=== PATIENT | male | born 1955 | race Caucasian/White ===

== ENCOUNTER → 2017-09-12 12:24 | Outpatient (CLI) | payer BC, SELFPAY ==
--- NOTE | 2017-09-12 12:30 | NVE_ITS ---
Venous Exam IMPRESSIONS Acute deep vein thrombosis involving the right femoral vein, right popliteal vein, right posterior tib, right peroneal, right gastrocnemius, and right soleal History: Right lower extremity pain. Edema of the right leg. Right lower extremity venous duplex evaluation. Doppler flow study including spectral analysis, color and calvillo scale imaging. Location: Vascular laboratory. Patient status: Outpatient. CRITICAL FINDINGS - Reported to: Shakira - Read back and verified. - 09/12/2017 - 1:00 PM - Acute DVT Tables: Venous flow and imaging: + + + + Location Overall Flow properties + + + + Right common femoral Patent Normal phasicity; spontaneous; normal augmentation; compressible + + + + Right saphenofemoral Patent Compressible junction + + + + Right profunda femoral Patent Compressible + + + + Right femoral Totally occluded Absent; not spontaneous; no augmentation; noncompressible + + + + Right greater saphenous Patent Normal phasicity; spontaneous; normal augmentation; compressible + + + + Right popliteal Totally occluded Absent; not spontaneous; no augmentation; noncompressible + + + + Right posterior tibial Totally occluded Noncompressible + + + + Right peroneal Totally occluded Noncompressible + + + + Right gastrocnemius Partially occluded Noncompressible + + + + Right soleal Totally occluded Noncompressible + + + + (Report amended ) Electronically signed by: Antony Porras [id number]
[2017-09-12 14:20] LABS: Basophils # 0.1 K/mm3 (0-0.2); Basophils % 0.4 % (0.1-2.0); Eosinophils # 0.2 K/mm3 (0.0-0.4); Eosinophils % 2.1 % (0.1-12.0); Lymphocytes # 2.4 K/mm3 (0.7-4.5); Lymphocytes % 22.6 K/mm3 (10-50); Mean Corpuscular Hemoglobin 29.7 pg (27.0-31.2); Mean Corpuscular Volume 87.5 fl (80-94); Mean Platelet Volume 7.5 fl (7.4-10.4); Monocytes # 0.6 K/mm3 (0.1-1.0); Neutrophils # 7.2 K/mm3 (1.8-7.8); Neutrophils % 68.9 % (37.0-80.0); Platelet Count 247 K/mm3 (142-424); Red Blood Count 5.38 M/mm3 (4.60-6.20); Red Cell Distribution Width 13.6 % (11.5-17.5); White Blood Count 10.4 K/mm3 (4.8-10.8)
[2017-09-12 16:10] LABS: Alanine Aminotransferase 29 U/L (12-78); Albumin Level 3.7 gm/dL (3.4-5.0); Albumin/Globulin Ratio 1.2 (1.1-1.8); Alkaline Phosphatase 74 U/L (46-116); Anion Gap 14.7 mEq/L (5-15); Aspartate Amino Transferase 11 U/L (15-37); Bilirubin,Total 2.1 mg/dL (0.2-1.0); Blood Urea Nitrogen 17 mg/dL (7-18); Calcium 8.5 mg/dL (8.5-10.1); Carbon Dioxide 24 mmol/L (21.0-32.0); Chloride 106 mmol/L (98-107); Creatinine,Serum 0.92 mg/dL (0.70-1.30); Estimated Glomerular Filt Rate 83 ml/min (>60); GFR (African American) 101 ML/MIN (>60); Glucose 143 mg/dL (74-106); Potassium 3.7 mmoL/L (3.5-5.1); Sodium 141 mmol/L (136-145); Total Protein,Serum 6.7 gm/dL (6.4-8.2)
[2017-09-12 16:12] LABS: Activated Partial Thrombo Time 25.9 seconds (23.6-34.0); INR 1.02 (0.9-1.1)
[2017-09-14 18:30] LABS: Anti-Thrombin III Antigen 72 % (72-124); Factor V Activity 117 % (70-150); Protein C Antigen 87 % (60-150); Protein S Antigen, Total 87 % (60-150); Protein S, Free 115 % (57-157)
== END ==
PROVIDERS: PCP Internal Medicine Adolescent Medicine; Visit Provider Nurse Practitioner Family
DX: M79.661 Pain in right lower leg (principal); M79.89 Other specified soft tissue disorders
CPT/HCPCS: 36415; 80053; 85025; 85220; 85301; 85302; 85305; 85610; 85730; 93971

== ENCOUNTER → 2017-09-12 13:29 | Outpatient (CLI) | payer BC, SELFPAY | PROVIDERS: Visit Provider Nurse Practitioner Family ==

== ENCOUNTER → 2017-11-14 08:23 | Outpatient (CLI) | payer BC, SELFPAY ==
[2017-11-14 08:43] LABS: Basophils # 0.1 K/mm3 (0-0.2); Basophils % 0.7 % (0.1-2.0); Eosinophils # 0.2 K/mm3 (0.0-0.4); Eosinophils % 1.9 % (0.1-12.0); Hematocrit 47.7 % (42.0-52.0); Hemoglobin 16.3 g/dL (14.1-18.0); Lymphocytes # 1.5 K/mm3 (0.7-4.5); Lymphocytes % 18.6 K/mm3 (10-50); Mean Corpuscular HGB Conc 34.2 g/dL (31.8-35.4); Mean Corpuscular Hemoglobin 29.9 pg (27.0-31.2); Mean Corpuscular Volume 87.5 fl (80-94); Mean Platelet Volume 7.3 fl (7.4-10.4); Monocytes # 0.4 K/mm3 (0.1-1.0); Monocytes % 4.9 % (1.7-9.3); Neutrophils # 5.9 K/mm3 (1.8-7.8); Neutrophils % 73.8 % (37.0-80.0); Platelet Count 261 K/mm3 (142-424); Red Blood Count 5.45 M/mm3 (4.60-6.20)
[2017-11-14 10:01] LABS: Alanine Aminotransferase 30 U/L (12-78); Albumin/Globulin Ratio 1.4 (1.1-1.8); Alkaline Phosphatase 75 U/L (46-116); Anion Gap 16.1 mEq/L (5-15); Aspartate Amino Transferase 14 U/L (15-37); Bilirubin,Total 1.6 mg/dL (0.2-1.0); Blood Urea Nitrogen 16 mg/dL (7-18); Calcium 9.4 mg/dL (8.5-10.1); Carbon Dioxide 22 mmol/L (21.0-32.0); Chloride 106 mmol/L (98-107); Chol/HDL Ratio 3.2 (1-3.5); Cholesterol 172 mg/dL (140-200); Estimated Glomerular Filt Rate 85 ml/min (>60); GFR (African American) 103 ML/MIN (>60); Globulin 2.9 gm/dl (1.3-3.2); Glucose 122 mg/dL (74-106); HDL Cholesterol 54 mg/dL (27-67); LDL Cholesterol 109 mg/dL (0-130); Potassium 4.1 mmoL/L (3.5-5.1); Sodium 140 mmol/L (136-145); Total Protein,Serum 6.9 gm/dL (6.4-8.2); Triglycerides 47 mg/dL (30-200); VLDL Cholesterol 9 mg/dL (0-40)
[2017-11-14 10:15] LABS: Hemoglobin A1C 5.4 % (0.0-7.0)
== END ==
PROVIDERS: Visit Provider Internal Medicine Adolescent Medicine
DX: R73.9 Hyperglycemia, unspecified (principal)
CPT/HCPCS: 36415; 80053; 80061; 83036; 85025

== ENCOUNTER → 2018-04-15 09:03 | Outpatient (CLI) | payer BC, SELFPAY ==
[2018-04-15 09:31] LABS: Basophils # 0.1 K/mm3 (0-0.2); Basophils % 0.6 % (0.1-2.0); Eosinophils # 0.2 K/mm3 (0.0-0.4); Eosinophils % 2.1 % (0.1-12.0); Hematocrit 46.8 % (42.0-52.0); Hemoglobin 15.8 g/dL (14.1-18.0); Lymphocytes # 1.7 K/mm3 (0.7-4.5); Lymphocytes % 21.7 K/mm3 (10-50); Mean Corpuscular HGB Conc 33.7 g/dL (31.8-35.4); Mean Corpuscular Hemoglobin 29.6 pg (27.0-31.2); Mean Corpuscular Volume 87.8 fl (80-94); Mean Platelet Volume 7.1 fl (7.4-10.4); Monocytes # 0.4 K/mm3 (0.1-1.0); Monocytes % 5.5 % (1.7-9.3); Neutrophils # 5.6 K/mm3 (1.8-7.8); Neutrophils % 70.1 % (37.0-80.0); Platelet Count 265 K/mm3 (142-424); Red Blood Count 5.32 M/mm3 (4.60-6.20); Red Cell Distribution Width 13.6 % (11.5-17.5)
[2018-04-15 09:57] LABS: Alanine Aminotransferase 32 U/L (12-78); Albumin Level 3.7 gm/dL (3.4-5.0); Albumin/Globulin Ratio 1.3 (1.1-1.8); Alkaline Phosphatase 70 U/L (46-116); Anion Gap 9.4 mEq/L (5-15); Aspartate Amino Transferase 16 U/L (15-37); Bilirubin,Total 1.6 mg/dL (0.2-1.0); Blood Urea Nitrogen 19 mg/dL (7-18); Calcium 8.4 mg/dL (8.5-10.1); Carbon Dioxide 28 mmol/L (21.0-32.0); Chloride 107 mmol/L (98-107); Chol/HDL Ratio 3.4 (1-3.5); Cholesterol 149 mg/dL (140-200); Creatinine,Serum 0.77 mg/dL (0.70-1.30); Estimated Glomerular Filt Rate 102 ml/min (>60); GFR (African American) 123 ML/MIN (>60); Globulin 2.8 gm/dl (1.3-3.2); Glucose 121 mg/dL (74-106); HDL Cholesterol 44 mg/dL (27-67); LDL Cholesterol 90 mg/dL (0-130); Potassium 4.4 mmoL/L (3.5-5.1); Prostate Specific Ag Screen 1.1 ng/mL (0.0-4.0); Sodium 140 mmol/L (136-145); Total Protein,Serum 6.5 gm/dL (6.4-8.2); Triglycerides 77 mg/dL (30-200); VLDL Cholesterol 15 mg/dL (0-40)
[2018-04-15 10:11] LABS: Hemoglobin A1C 5.5 % (0.0-7.0)
[2018-04-17 12:19] LABS: Creatinine, Urine 174.8 mg/dL (Not Estab.); Microalbumin, Urine 17.2 ug/mL (Not Estab.)
== END ==
PROVIDERS: PCP Internal Medicine Adolescent Medicine; Visit Provider Nurse Practitioner Family
DX: R73.03 Prediabetes (principal); D68.318 Other hemorrhagic disorder due to intrinsic circulating anticoagulants, antibodies, or inhibitors; Z12.5 Encounter for screening for malignant neoplasm of prostate
CPT/HCPCS: 36415; 80053; 80061; 82043; 82570; 83036; 85025; G0103

== ENCOUNTER → 2019-04-07 08:33 | Outpatient (POV) | payer BC, SELFPAY | PROVIDERS: Visit Provider Dermatology | DX: Z00.00 Encounter for general adult medical examination without abnormal findings (principal) ==

== ENCOUNTER → 2019-04-30 08:24 | Outpatient (CLI) | payer BC, SELFPAY ==
[2019-04-30 08:52] LABS: Basophils % 0.6 % (0.1-2.0); Eosinophils # 0.2 K/mm3 (0.0-0.4); Eosinophils % 3.3 % (0.1-12.0); Hematocrit 47.6 % (42.0-52.0); Hemoglobin 15.9 g/dL (14.1-18.0); Lymphocytes # 1.5 K/mm3 (0.7-4.5); Lymphocytes % 20.8 % (10-50); Mean Corpuscular HGB Conc 33.3 g/dL (31.8-35.4); Mean Corpuscular Hemoglobin 29.8 pg (27.0-31.2); Mean Corpuscular Volume 89.6 fl (80-94); Mean Platelet Volume 7.9 fl (7.4-10.4); Monocytes # 0.4 K/mm3 (0.1-1.0); Monocytes % 5.8 % (1.7-9.3); Neutrophils % 69.5 % (37.0-80.0); Platelet Count 263 K/mm3 (142-424); Red Blood Count 5.31 M/mm3 (4.60-6.20); Red Cell Distribution Width 13.6 % (11.5-17.5); White Blood Count 7.2 K/mm3 (4.8-10.8)
[2019-04-30 10:30] LABS: Alanine Aminotransferase 36 U/L (12-78); Albumin Level 3.6 gm/dL (3.4-5.0); Albumin/Globulin Ratio 1.3 (1.1-1.8); Alkaline Phosphatase 58 U/L (46-116); Anion Gap 10.2 mEq/L (5-15); Aspartate Amino Transferase 14 U/L (15-37); Bilirubin,Total 2.3 mg/dL (0.2-1.0); Blood Urea Nitrogen 17 mg/dL (7-18); Calcium 9.1 mg/dL (8.5-10.1); Carbon Dioxide 28 mmol/L (21.0-32.0); Chloride 107 mmol/L (98-107); Chol/HDL Ratio 3.5 (1-3.5); Cholesterol 138 mg/dL (140-200); Estimated Glomerular Filt Rate 85 ml/min (>60); GFR (African American) 102 ML/MIN (>60); Globulin 2.7 gm/dl (1.3-3.2); Glucose 124 mg/dL (74-106); HDL Cholesterol 39 mg/dL (27-67); LDL Cholesterol 84 mg/dL (0-130); Potassium 4.2 mmoL/L (3.5-5.1); Prostate Specific Ag Screen 1.3 ng/mL (0.0-4.0); Sodium 141 mmol/L (136-145); Total Protein,Serum 6.3 gm/dL (6.4-8.2); Triglycerides 75 mg/dL (30-200); VLDL Cholesterol 15 mg/dL (0-40)
[2019-04-30 14:25] LABS: Hemoglobin A1C 5.7 % (0.0-7.0)
== END ==
PROVIDERS: Visit Provider Internal Medicine Adolescent Medicine
DX: R73.9 Hyperglycemia, unspecified (principal); Z80.42 Family history of malignant neoplasm of prostate
CPT/HCPCS: 36415; 80053; 80061; 83036; 85025; G0103

== ENCOUNTER → 2019-07-04 08:17 | Outpatient (CLI) | payer BC, MEDICARE, SELFPAY ==
[2019-07-04 08:20] LABS: Adenovirus F 40/41, stool Not Detected (NotDetected); Astrovirus Not Detected (NotDetected); Campylobacter Not Detected (NotDetected); Clostridium Difficile A/B, PCR Not Detected (NotDetected); Cryptosporidium Not Detected (NotDetected); Cyclospora Cayetanesis Not Detected (NotDetected); Entamoeba histolytica Not Detected (NotDetected); Enteroaggregative E coli Not Detected (NotDetected); Enteropathogenic E coli Not Detected (NotDetected); Enterotoxigenic E coli Not Detected (NotDetected); Giardia lamblia Not Detected (NotDetected); Norovirus Not Detected (NotDetected); Plesimonas Shigalloides, PCR Not Detected (NotDetected); Rotavirus A Not Detected (NotDetected); Salmonella, PCR Not Detected (NotDetected); Sapovirus Not Detected (NotDetected); Shiga-like toxin E coli Not Detected (NotDetected); Shigella Enterovasive E coli Not Detected (NotDetected); Vibrio Cholerae Not Detected (NotDetected); Vibrio, PCR Not Detected (NotDetected); Yersinia Entercolitica, PCR Not Detected (NotDetected)
== END ==
PROVIDERS: Visit Provider Surgery
DX: K52.9 Noninfective gastroenteritis and colitis, unspecified (principal); K57.92 Diverticulitis of intestine, part unspecified, without perforation or abscess without bleeding; R19.7 Diarrhea, unspecified
CPT/HCPCS: 87507

== ENCOUNTER → 2020-06-27 06:58 | Outpatient (CLI) | payer BC, MEDICARE, SELFPAY ==
[2020-06-27 08:35] LABS: Basophils % 0.4 % (0.1-2.0); Eosinophils # 0.8 K/mm3 (0.0-0.4); Eosinophils % 10.8 % (0.1-12.0); Hematocrit 50.2 % (42.0-52.0); Hemoglobin 16.9 g/dL (14.1-18.0); Lymphocytes # 2.2 K/mm3 (0.7-4.5); Lymphocytes % 27.8 % (10-50); Mean Corpuscular HGB Conc 33.7 g/dL (31.8-35.4); Mean Corpuscular Volume 89.2 fl (80-94); Mean Platelet Volume 7.9 fl (7.4-10.4); Monocytes # 0.4 K/mm3 (0.1-1.0); Monocytes % 5.7 % (1.7-9.3); Neutrophils # 4.3 K/mm3 (1.8-7.8); Neutrophils % 55.3 % (37.0-80.0); Platelet Count 249 K/mm3 (142-424); Red Blood Count 5.63 M/mm3 (4.60-6.20); Red Cell Distribution Width 13.9 % (11.5-17.5); White Blood Count 7.8 K/mm3 (4.8-10.8)
[2020-06-27 09:29] LABS: Alanine Aminotransferase 35 U/L (12-78); Albumin Level 4.1 g/dl (3.5-5.0); Albumin/Globulin Ratio 1.6 (1.1-1.8); Alkaline Phosphatase 66 U/L (38-126); Aspartate Amino Transferase 31 U/L (17-59); Bilirubin,Total 1.9 mg/dl (0.2-1.3); Blood Urea Nitrogen 17 mg/dl (9-20); Calcium 9.2 mg/dl (8.4-10.2); Carbon Dioxide 24 mmol/L (22.0-30.0); Chloride 106 mmol/L (98-107); Chol/HDL Ratio 3.4 (1-3.5); Cholesterol 148 mg/dl (140-200); Estimated Glomerular Filt Rate 97 ml/min (>60); GFR (African American) 117 ML/MIN (>60); Globulin 2.5 g/dL (1.3-3.2); Glucose 134 mg/dl (74-100); HDL Cholesterol 44 mg/dl (40-60); Sodium 139 mmol/L (136-145); Total Protein,Serum 6.6 g/dl (6.3-8.2); Triglycerides 104 mg/dl (30-150); VLDL Cholesterol 21 mg/dL (0-40)
[2020-06-27 09:40] LABS: Direct LDL Cholesterol 101.34 mg/dL (100-129)
[2020-06-27 09:48] LABS: Hemoglobin A1C 5.7 % (4.0-6.0)
[2020-06-27 09:59] LABS: Prostate Specific Ag Screen 0.8 ng/ml (0.0-4.0)
== END ==
PROVIDERS: Visit Provider Nurse Practitioner Family
DX: R73.03 Prediabetes (principal); Z12.5 Encounter for screening for malignant neoplasm of prostate; Z80.42 Family history of malignant neoplasm of prostate; Z86.718 Personal history of other venous thrombosis and embolism
CPT/HCPCS: 36415; 80053; 80061; 83036; 85025; G0103

== ENCOUNTER 2020-08-23 09:18 | Emergency (ER) | payer BC, MEDICARE, SELFPAY ==
[2020-08-23 09:21] VITALS: BMI 35.9
[2020-08-23 09:33] VITALS: BP 139/83; PULSE 71; RESP 16; TEMP 36.6; O2SAT 96; BMI 35.6
--- NOTE | 2020-08-23 09:33 | XR_ITS ---
PROCEDURE: XR THORACIC SPINE 3V CLINICAL INDICATION: fall Posttraumatic pain COMPARISON: CT CT ABDOMEN PELVIS W CON from 07/01/2019 FINDINGS: There is mild upper thoracic scoliosis convex right. Multi level thoracic spondylosis is present. There is mild wedging of L1 vertebral body. This however appears to have had a similar appearance on a prior CT scan of 07/01/2019. IMPRESSION: Degenerative changes with chronic wedging of L1. No acute finding Dictated by: Antony Porras MD 08/23/2020 10:34 Antony Porras MD in [place] 08/23/2020 10:34
--- NOTE | 2020-08-23 09:33 | XR_ITS ---
PROCEDURE: XR RIBS RT MIN 3V W CXR1V CLINICAL INDICATION: fall Posttraumatic pain, right posterior rib pain marrow COMPARISON: CR CXR CHEST(2 VIEWS-NOT PORTABLE) from 08/03/2016 FINDINGS: Multiple views of the right ribs show no obvious fracture. No lytic or blastic change. Consider follow-up in 7-[address] with 3D reformats if pain persists Frontal view of the chest shows no acute finding IMPRESSION: No acute findings. Dictated by: Antony Porras MD 08/23/2020 10:32 Antony Porras MD in [place] 08/23/2020 10:32
--- NOTE | 2020-08-23 09:39 | HMH.EDUTC ---
[facility] [place] Disposition Clinical Impression: Back pain Qualifiers: Back pain location: thoracic back pain Chronicity: unspecified Back pain laterality: right Qualified Code(s): M54.6 - Pain in thoracic spine Rib contusion Qualifiers: Encounter type: initial encounter Laterality: right Qualified Code(s): S20.211A - Contusion of right front wall of thorax, initial encounter Disposition: Home, Self-Care Condition on Discharge: Good Instructions: DI for Rib Contusion, Lidocaine Transdermal Patch, Methocarbamol, DI for Thoracic Back Pain, Thoracic Back Pain Additional Instructions: *Ibuprofen evangelina 6 hours with meal as needed for pain/inflammation if your Doctor has told you that you can take it Lidocaine patches on area for 12 hours daily then remove and leave off for 12 hours *Not additional anti-inflammatory like motrin, aleve, advil with the above amount of ibuprofen. You can still take Tylenol every 4 hours as needed if you need something else for pain *Ice 20 minutes every 2 hours for the first 48 hours after the initial injury followed by moist heat every 20 minutes 3-4 times a day to affected area *Muscle relaxer as prescribed as needed for muscle spasms but remember, it WILL cause drowsiness You cannot take it and drive, operate machinery or care for small children. *Keep this area active, no movement leads to more stiffness, However take it easy and avoid heavy lifting pushing or pulling *Follow up with you family doctor if no improvement for further treatment in the next 48-72 hours Return if needed Straight to ER if any life threatening symptoms Prescriptions: Lidocaine [Lidocaine Pain Relief] 1 each TP DAILY #6 adh..patch Transmission Status: Received by [facility] methocarbamoL [Methocarbamol 500mg Tablet] 500 mg PO BID PRN #10 tab PRN Reason: Muscle Spasm Transmission Status: Received by [facility] Referrals: Sarmad Simmons MD [Primary Care Provider] - As needed Forms: Work/School Release Time of Disposition: 10:52 Medical Decision Making - Christiano Inquiry Pt receiving controlled substance: No Christiano was queried for this patient: No Vital Signs: 08/23/20 09:33 08/23/20 10:42 Temperature 97.9 F 97.8 F Temperature Source Tympanic Tympanic Pulse Rate 68 Pulse Rate [Right] 71 Respiratory Rate 16 18 Blood Pressure 112/72 Blood Pressure [Right Arm] 139/83 Blood Pressure Mean [Right Arm] 101 Blood Pressure Source [Right Arm] Manual Cuff/ Doppler Blood Pressure Position Sitting Blood Pressure Position [Right Arm] Sitting 02 Sat by Pulse Oximetry 96 Oxygen Delivery Method Room Air - Radiology Data #1 Image(s): T-Spine Image Reviewed: Yes I have reviewed radiologist's interpretation Preliminary Findings: No Fracture Seen IMPRESSION: Degenerative changes with chronic wedging of L1. No acute finding #2 Image(s): Chest (with right ribs) Image Reviewed: Yes I have reviewed radiologist's interpretation Preliminary Findings: No Fracture Seen IMPRESSION: No acute findings. [facility] [place] HPI - General Stated complaint: AO [id number] fell, back pain Time Seen by Provider: 08/23/20 09:39 Mode of Arrival: Ambulatory Source of Information: Patient Limitations: No Limitations Description of Symptoms (Recalled from Triage Doc. by RN): pt states he slipped on ice this morning and fell on his back. he is having mid back pain that radiates to the right of his ribs. HEENT Symptoms (Recalled from RN notes): No Resp Symptoms (Recalled from RN notes): No Skin Symptoms (Recalled from RN notes): No MS Symptoms (Recalled from RN notes): Yes (middle back pain radiating to R rib area) Functional Status (Recalled from RN notes): na - History of Present Illness Provider Complaint: Patient state that he slipped on ice on his driveway earlier this morning and landed on his back and right side of ribs States that he has been having spasm like pain in his back ever since and hurts when he mov
[2020-08-23 10:42] VITALS: BP 112/72; PULSE 68; RESP 18; TEMP 36.6
== END 2020-08-23 11:00 | disposition home or self-care (01) ==
PROVIDERS: Emergency Provider Nurse Practitioner Family; PCP Internal Medicine Adolescent Medicine
DX: S20.211A Contusion of right front wall of thorax, initial encounter (principal); W00.0XXA Fall on same level due to ice and snow, initial encounter; Y92.014 Private driveway to single-family (private) house as the place of occurrence of the external cause; E11.9 Type 2 diabetes mellitus without complications; Z88.7 Allergy status to serum and vaccine
CPT/HCPCS: 71101; 72072; 99202; G0463

== ENCOUNTER 2020-08-23 20:46 | Observation (INO) | payer BC, MEDICARE, SELFPAY ==
[2020-08-23 20:56] VITALS: BP 170/85; PULSE 83; RESP 18; TEMP 36.9; O2SAT 94; BMI 38.2
--- NOTE | 2020-08-23 21:08 | XR_ITS ---
PROCEDURE: XR PELVIS 1-2V CLINICAL INDICATION: fall Pain COMPARISON: CT CT ABDOMEN PELVIS W CON from 07/01/2019 TECHNIQUE: XR Pelvis AP View FINDINGS: No fracture or dislocation is evident. Mild osteoarthritic changes are present involving both hips. Os acetabuli noted on right No lytic or blastic change. IMPRESSION: No acute findings. Dictated by: Antony Porras MD 08/24/2020 05:51 Antony Porras MD in [place] 08/24/2020 05:51
--- NOTE | 2020-08-23 21:08 | XR_ITS ---
PROCEDURE: XR CHEST AP CLINICAL HISTORY: fall Posttraumatic pain COMPARISON: CR CXR CHEST(2 VIEWS-NOT PORTABLE) from 08/03/2016 CR XR RIBS RT MIN 3V W CXR1V from 08/23/2020 FINDINGS: Mild prominence of the cardiac and mediastinal silhouette. The lungs are clear without infiltrates, suspicious nodules, or pleural effusions. There is a left 5th rib fracture laterally which may be old. Please correlate as the patient's area of pain and tenderness. IMPRESSION: No acute findings. Dictated by: Antony Porras MD 08/24/2020 05:54 Antony Porras MD in [place] 08/24/2020 05:54
--- NOTE | 2020-08-23 21:08 | CT_ITS ---
PROCEDURE: CT CERVICAL SPINE WO CON CLINICAL INDICATION: fall Neck injury with pain, contusion/abrasion or hematoma, cervical sprain/strain the COMPARISON: No exams were available for comparison TECHNIQUE: Axial images obtained with sagittal and coronal reformats. All CT scans at the facility use one or more dose reduction, viz: automated exposure control, ma/kV adjustment per patient size (including targeted exams where dose is matched to indication, i.e. head), or iterative reconstruction technique. Axial spiral CT scanning performed of the cervical spine beginning at the base of the skull and continuing to the upper T-spine. 3-D multiplanar reconstruction with 3-D manipulation of volumetric data set in image rendering was completed by the radiologist and/or technologist with the supervision of the radiologist on independent workstation. FINDINGS: Normal alignment. No fracture or dislocation. No lytic or blastic change. Lung apices are clear. There is degenerative disc disease at C5-C6 and C6-C7. There are mild facet and uncovertebral arthritic changes. There are few scattered small nodes in the neck. There is mild left-sided foraminal narrowing at C5-C6 and there are small anterior osteophytes at C5-C6 and C7. IMPRESSION: Degenerative changes, no acute finding Dictated by: Antony Porras MD 08/24/2020 10:47 Antony Porras MD in [place] 08/24/2020 10:47
--- NOTE | 2020-08-23 21:08 | CT_ITS ---
PROCEDURE: CT LUMBAR SPINE WO CON CLINICAL HISTORY: fall Posttraumatic pain COMPARISON: CT CT ABDOMEN PELVIS W CON from 07/01/2019 TECHNIQUE: Axial images obtained with sagittal and coronal reformats. All CT scans at the facility use one or more dose reduction, viz: automated exposure control, ma/kV adjustment per patient size (including targeted exams where dose is matched to indication, i.e. head), or iterative reconstruction technique. FINDINGS: There is normal alignment. No fracture or dislocation. No lytic or blastic change. There is mild wedge contour involving the L1 vertebral body. This had a similar appearance on 07/01/2019 anterior osteophytes are present at L1-L2 and L3. Osteoarthritic changes are present involving the SI joints. IMPRESSION: No acute fracture. Chronic changes as described above. Dictated by: Antony Porras MD 08/24/2020 12:15 Antony Porras MD in [place] 08/24/2020 12:15
--- NOTE | 2020-08-23 21:08 | CT_ITS ---
PROCEDURE: CT HEAD/BRAIN WO CON CLINICAL INDICATION: fall Head injury with headache/pain, contusion, abrasion or hematoma COMPARISON: No exams were available for comparison TECHNIQUE: Axial images obtained. All CT scans at the facility use one or more dose reduction, viz: automated exposure control, ma/kV adjustment per patient size (including targeted exams where dose is matched to indication, i.e. head), or iterative reconstruction technique. FINDINGS: No midline shift, mass effect, intracranial hemorrhage, hydrocephalus, or extra-axial fluid collection is evident. There is mild generalized atrophy with hypoattenuation of the periventricular white matter consistent with microangiopathic changes. The calvarium has an unremarkable appearance. No mastoid effusion. There is mild mucosal thickening of the ethmoid sinuses a small retention cyst is present in the left maxillary sinus with minimal mucosal thickening of the maxillary sinuses. IMPRESSION: No acute intracranial finding Dictated by: Antony Porras MD 08/24/2020 10:44 Antony Porras MD in [place] 08/24/2020 10:44
--- NOTE | 2020-08-23 21:08 | CT_ITS ---
PROCEDURE: CT THORACIC SPINE WO CON CLINICAL HISTORY: fall Posttraumatic pain COMPARISON: No exams were available for comparison TECHNIQUE: Axial images obtained with sagittal and coronal reformats. All CT scans at the facility use one or more dose reduction, viz: automated exposure control, ma/kV adjustment per patient size (including targeted exams where dose is matched to indication, i.e. head), or iterative reconstruction technique. FINDINGS: There is normal alignment. There is DISH of the thoracic spine with multilevel bridging osteophytes anteriorly from T5 to T12. There is minimal depression of the superior endplate of T3 and T4 indeterminate age. No retropulsion. No subluxation. No bony canal stenosis. There is mild wedge deformity of C7 which may be chronic. MRI may confirm. IMPRESSION: 1. Minimal superior depression of T3 and T4 of indeterminate age. 2. DISH of the thoracic spine 3. Minimal wedge changes of C7 with anterior osteophytes at that level which may be chronic. MRI may confirm. Dictated by: Antony Porras MD 08/24/2020 11:22 Antony Porras MD in [place] 08/24/2020 11:22
--- NOTE | 2020-08-23 21:30 | HMH.EDFALL ---
ED Disposition Clinical Impression: DISH (diffuse idiopathic skeletal hyperostosis), Intractable pain Thoracic spine fracture Qualifiers: Encounter type: initial encounter Thoracic vertebra fracture level: T3 Fracture type: closed Fracture morphology: unspecified fracture morphology Qualified Code(s): S22.039A - Unspecified fracture of third thoracic vertebra, initial encounter for closed fracture Fall Qualifiers: Encounter type: initial encounter Qualified Code(s): W19.XXXA - Unspecified fall, initial encounter Disposition: Admitted as Observation Condition on Discharge: Serious Referrals: Sarmad Simmons MD [Primary Care Provider] - - Critical Care Critical Care Time: No Attestation: On 08/23/20, the high probability of a clinically significant, sudden or life threatening deterioration of the following system(s) required my full and direct attention, intervention and personal management. The time I documented below is in addition to time spent performing reported procedures but includes the following listed in this critical care notation. Medical Decision Making - Medical Records Medical records reviewed: Yes: I reviewed the patient's medical records. - Christiano Inquiry Pt receiving controlled substance: No Vital Signs: 08/23/20 20:56 Temperature 98.4 F Temperature Source Oral Pulse Rate [Right] 83 Respiratory Rate 18 Blood Pressure [Right Arm] 170/85 H Blood Pressure Mean [Right Arm] 113 Blood Pressure Source [Right Arm] Automatic Cuff Blood Pressure Position [Right Arm] Sitting 02 Sat by Pulse Oximetry 94 L Oxygen Delivery Method Room Air - Lab Data Lab results reviewed: Yes: I reviewed the patient's lab results. Orders (Tests/Meds): ED MEDICATIONS Generic Name Dose Route Start Last Admin Trade Name Freq PRN Reason Stop Dose Admin Sodium Chloride 1,000 mls @ 999 mls/hr 08/23/20 21:15 08/23/20 22:05 Sod Chlor 0.9% 1000ml Bag IV 08/23/20 22:15 999 mls/hr .Q1H1M JOSY Administration Discontinued Medications Generic Name Dose Route Start Last Admin Trade Name Freq PRN Reason Stop Dose Admin Ketorolac Tromethamine 30 mg 08/23/20 21:12 08/23/20 22:05 Ketorolac 30mg/Ml Vial IV 08/23/20 21:13 30 mg ONCE ONE Administration Methylprednisolone Sodium Succinate 125 mg 08/23/20 21:12 08/23/20 22:05 Methylprednisolone Sod Succ 125mg Vial IV 08/23/20 21:13 125 mg ONCE ONE Administration Morphine Sulfate 4 mg 08/23/20 21:12 08/23/20 22:05 Morphine 4mg/Ml Syringe IV 08/23/20 21:13 4 mg ONCE ONE Administration Ondansetron HCl 4 mg 08/23/20 21:12 08/23/20 22:05 Ondansetron 4mg/2ml Vial IV 08/23/20 21:13 4 mg ONCE ONE Administration ORDERS Category Date Time Status CT cervical spine wo con Stat Cat Scan 08/23/20 21:[address] head/brain wo con Stat Cat Scan 08/23/20 21:[address] lumbar spine wo con Stat Cat Scan 08/23/20 21:[address] thoracic spine wo con Stat Cat Scan 08/23/20 21:08 Taken XR chest AP Stat Exams 08/23/20 21:08 Taken XR pelvis 1-2V Stat Exams 08/23/20 21:08 Taken - Radiology Data #1 Image(s): Chest, Pelvis Image Reviewed: Yes I reviewed the patient's radiology image Preliminary Findings: No Fracture Seen - CT Data CT Scan: Head, C-Spine, T-Spine, L-Spine Time Received: 22:[address] Reviewed: Yes: I have viewed the radiologist's interpretation Preliminary Findings: Abnormal (see report) Medical Decision Narrative: has sig changes on ct and possible fx and sig dish changes t spine - will need admit for eval and treatment Fall HPI - General Chief Complaint: Fall Stated Complaint: AO [id number] fell on Ice R Side Time Seen by Provider: 08/23/20 21:05 Mode of Arrival: Ambulatory Source of Information: Patient, Spouse, Medical Record Limitations: No Limitations Description of Symptoms (Recalled from ER Triage Doc. by RN): Pt fell this AM and continues to have mid back pain, pt did hit head, b
[2020-08-23 22:31] LABS: Adenovirus,PCR Not Detected (NotDetected); Bordetella Pertussis Not Detected (NotDetected); Chlamydophila Pneumoniae, PCR Not Detected (NotDetected); Coronavirus 19, PCR Not Detected (NotDetected); Coronavirus 229E Not Detected (NotDetected); Coronavirus NL63 Not Detected (NotDetected); Coronavirus OC43 Not Detected (NotDetected); Coronovirus HKU1,PCR Not Detected (NotDetected); Human Metapneumovirus Not Detected (NotDetected); Influenza A, PCR Not Detected (NotDetected); Influenza AH1, 2009 Not Detected (NotDetected); Influenza AH1, PCR Not Detected (NotDetected); Influenza AH3,PCR Not Detected (NotDetected); Influenza B, PCR Not Detected (NotDetected); Mycoplasma Pneumoniae, PCR Not Detected (NotDetected); Parainfluenza 1, PCR Not Detected (NotDetected); Parainfluenza 2, PCR Not Detected (NotDetected); Parainfluenza 3, PCR Not Detected (NotDetected); Parainfluenza 4, PCR Not Detected (NotDetected); Respiratory Syncytial Virus Not Detected (NotDetected); Rhinovirus/Enterovirus Not Detected (NotDetected)
[2020-08-24 00:16] VITALS: BP 164/82; PULSE 82; RESP 16; TEMP 36.9; O2SAT 95
--- NOTE | 2020-08-24 00:39 | PC.NURSE ---
PT ARRIVED TO FLOOR VIA W/C FROM ED W/STAFF AT 0039.
[2020-08-24 01:17] VITALS: BMI 39.6
[2020-08-24 04:00] VITALS: BP 122/77; PULSE 70; RESP 17; TEMP 36.7; O2SAT 91
[2020-08-24 06:31] LABS: Chloride 106 mmol/L (98-107); Sodium 139 mmol/L (136-145)
[2020-08-24 06:32] LABS: Potassium 4.5 mmoL/L (3.5-5.1)
[2020-08-24 06:34] LABS: Blood Urea Nitrogen 26 mg/dl (9-20); Creatinine Clearance Estimated 140 mL/min (50-200); Estimated Glomerular Filt Rate 84 ml/min (>60); GFR (African American) 102 ML/MIN (>60)
[2020-08-24 06:35] LABS: Anion Gap 9.5 mEq/L (5-15); Calcium 9.3 mg/dl (8.4-10.2); Carbon Dioxide 28 mmol/L (22.0-30.0); Glucose 203 mg/dl (74-100)
[2020-08-24 07:02] LABS: Basophils % 0.1 % (0.1-2.0); Eosinophils % 0.1 % (0.1-12.0); Hematocrit 47.7 % (42.0-52.0); Hemoglobin 15.3 g/dL (14.1-18.0); Lymphocytes # 1.1 K/mm3 (0.7-4.5); Lymphocytes % 14.1 % (10-50); Mean Corpuscular HGB Conc 32.2 g/dL (31.8-35.4); Mean Corpuscular Hemoglobin 29.4 pg (27.0-31.2); Mean Corpuscular Volume 91.5 fl (80-94); Mean Platelet Volume 7.7 fl (7.4-10.4); Monocytes # 0.1 K/mm3 (0.1-1.0); Monocytes % 1.4 % (1.7-9.3); Neutrophils # 6.3 K/mm3 (1.8-7.8); Neutrophils % 84.2 % (37.0-80.0); Platelet Count 242 K/mm3 (142-424); Red Blood Count 5.21 M/mm3 (4.60-6.20); Red Cell Distribution Width 13.9 % (11.5-17.5); White Blood Count 7.4 K/mm3 (4.8-10.8)
--- NOTE | 2020-08-24 07:46 | HMH.PHAVTE ---
[facility] Pharmacy VTE Monitoring - Patient Demographics Admission date: 08/23/20 Report Date: 08/24/20 Time: 07:46 Allergies/Adverse Reactions: Patient Allergies tetanus and diphtheria toxoids [TETANUS & DIPHTHERIA TOXOIDS] Allergy (Intermediate, Verified 08/23/20 09:41) PASSED OUT Height: 1.85 m Weight: 136.1 kg Patient Problems: Current Active Problems (Last Updated 11/26/19 @ 08:29 by JAROCHO Monet) Thoracic spine fracture (Acute) DISH (diffuse idiopathic skeletal hyperostosis) (Acute) Fall (Acute) Intractable pain (Acute) - VTE Risk Labs: VTE Related Lab Results Hgb 15.3 g/dL (14.1-18.0) 08/24/20 06:05 Hct 47.7 % (42.0-52.0) 08/24/20 06:05 Plt Count 242 K/mm3 (142-424) 08/24/20 06:05 BUN 26 mg/dl (9-20) H 08/24/20 06:05 Creatinine 0.90 mg/dl (0.66-1.25) 08/24/20 06:05 Estimated Creat Clear 140 mL/min (50-200) 08/24/20 06:05 VTE Score: 3 VTE Risk Level: Low Risk - Prophylaxis VTE Prophylaxis Ordered?: Yes Types of VTE Prophylaxis: TEDS Knee High Location of Applied Device: Bilateral Lower Extremeties
[2020-08-24 08:00] VITALS: BP 116/88; PULSE 59; RESP 18; TEMP 36.8; O2SAT 94
--- NOTE | 2020-08-24 08:51 | HMH.HP ---
*Admission Date: 08/23/20 *Chief complaint: Fall at home with back pain *History of present illness: 65-year-old white male with morbid obesity, who was walking down his driveway yesterday morning at 5:30 AM and apparently stepped on a residual patch of ice and fell onto the right lateral back and elbow on the right side of his body. He did hit his head but suffered no loss of consciousness or headaches post event. Had some ongoing pain, went to the urgent treatment center where x-rays were done and he was released. Continue to have ongoing intractable pain with some pain with left arm movement and came back to the emergency department. CT scanning of C spine and T-spine revealed evidence of a T3 fracture, nondisplaced but also with significant bone spurring and patient was admitted to hospital for pain control and MRI evaluation and pain medicine consult. This morning he is comfortable if he still in the bed. He reports pain when he moves his left arm around. [facility] History I have reviewed the patient's past medical history: Yes Medical History: Reports:: Diabetes Mellitus Type 2 Denies:: Cancer, Diabetes Mellitus Type 1, MRSA *Have you ever received a pneumonia vaccine?: Yes *Have you received a flu vaccine this season?: Yes Other Surgeries: Yes: Colonoscopy, Sinus Surgery, Other Amputation: No Fractures: Yes (collar bone) - *Social History Last grade of school completed: Advanced degree Smoking Status: Never smoker Alcohol Intake: never Substance Use Type: denies use *Occupational Status:: employed Housing: house Household Members: spouse *Travel in the last 8 weeks: None Family Hx:: No significant family history Review of Systems - Review of Systems Review of systems:: pertinent systems reviewed and negative unless documented below - *Neurologic Denies abnormal movements, Denies localized weakness, Denies seizure-like activity Meds Home Medications Medication Instructions Recorded Confirmed Type aspirin 81 mg tablet,delayed 81 mg PO DAILY 11/19/18 08/24/20 History release dorzolamide 2 % eye drops 1 drp OPHTHALMIC BID ml 11/19/18 08/24/20 History levocetirizine 5 mg tablet 5 mg PO DAILY 11/26/19 08/24/20 History metformin 500 mg tablet 500 mg PO BID 11/26/19 08/24/20 History Lidocaine [Lidocaine Pain Relief] 1 each TP DAILY 08/23/20 08/24/20 History Psyllium Husk/Aspartame [Metamucil 3.4 gm PO BID 08/23/20 08/23/20 History Fiber Singles Packet] methocarbamoL [Methocarbamol 500mg 500 mg PO BID PRN #10 tab 08/23/20 08/24/20 Rx Tablet] Allergies Allergy/AdvReac Type Severity Reaction Status Date / Time tetanus and diphtheria Allergy Intermediate PASSED OUT Verified 08/23/20 09:41 toxoids [TETANUS & DIPHTHERIA TOXOIDS] Exam Vital signs and Labs for Last 24 Hours: Temp Pulse Resp BP Pulse Ox 98.2 F 59 L 18 116/88 94 L 08/24/20 08:00 08/24/20 08:00 08/24/20 08:00 08/24/20 08:00 08/24/20 08:00 Laboratory Results - last 24 hr 08/23/20 22:27: Chlamy pneumoniae PCR Not detected, Adenovirus (PCR) Not detected, B. pertussis DNA (PCR) Not detected, Coronavirus OC43 (PCR) Not detected, Coronavirus HKU1 (PCR) Not detected, Coronavirus 229E (PCR) Not detected, SARS-CoV-2 (PCR) Not detected, Coronavirus NL63 (PCR) Not detected, Human Metapneumovir PCR Not detected, Influenza A (H1) PCR Not detected, Influ A (H1N1/09) PCR Not detected, Influenza A (H3) PCR Not detected, Influenza Type A (PCR) Not detected, Influenza Type B (PCR) Not detected, M. pneumoniae (PCR) Not detected, Parainfluenza 1 (PCR) Not detected, Parainfluenza 2 (PCR) Not detected, Parainfluenza 3 (PCR) Not detected, Parainfluenza 4 (PCR) Not detected, RSV (PCR) Not detected, Entero/Rhino (PCR) Not detected 08/24/20 06:05: WBC 7.4, RBC 5.21, Hgb 15.3, Hct 47.7, MCV 91.5, MCH 29.4, MCHC 32.2, RDW 13.9, Plt Count 242, MPV 7.7, Neut % (Auto) 84.2 H, Lymph % (Auto) 14.1, [place] % (Auto) 1.4 L, Eos % (Auto) 0.1, Baso % (A
--- NOTE | 2020-08-24 09:23 | HMH.PHAINT ---
MEDICATION RECONCILIATION COMPLETED ON PATIENT USING EXTERNAL FILL HISTORY FROM PHARMACY AND LIST FROM [facility] VISIT YESTERDAY. -TRAV LEMUSD
--- NOTE | 2020-08-24 15:25 | MR_ITS ---
PROCEDURE: MR THORACIC SPINE WO CON CLINICAL INDICATION: COMPRESSION FX Back pain following injury COMPARISON: CT CT THORACIC SPINE WO CON from 08/23/2020 TECHNIQUE: Routine multiplanar multi echo sequences are performed without gadolinium enhancement. FINDINGS: Normal alignment. No acute fracture or dislocation. Minimal superior compression deformity of T3 and T4 does not appear acute. There is multilevel degenerative disc disease from T3-T12. There is a small left paracentral disc protrusion at T10-T11 multilevel anterior osteophytes are present in the thoracic spine extending from T3 to T11 consistent with DISH no lytic or blastic change. The spinal cord has an unremarkable appearance. Small lipoma is present involving the T8 vertebral body. IMPRESSION: 1. No acute fracture. 2. Mild multilevel thoracic spondylosis as described above. 3. DISH thoracic spine Dictated by: Antony Porras MD 08/24/2020 17:55 Antony Porras MD in [place] 08/24/2020 17:55
[2020-08-24 15:34] VITALS: BMI 39.7
[2020-08-24 15:41] VITALS: BP 154/85; PULSE 97; RESP 18; TEMP 36.6; O2SAT 96
--- NOTE | 2020-08-24 15:58 | MR_ITS ---
PROCEDURE: MR CERVICAL SPINE WO CON CLINICAL INDICATION: EVALUATE ABNORMAL CT C-SPINE Neck pain following injury, abnormal CT scan of the C-spine with wedging C6 and C7 COMPARISON: CT CT CERVICAL SPINE WO CON from 08/23/2020 TECHNIQUE: Standard multiplanar multiecho sequences are performed without contrast. 3-D MIP and myelographic images are also rendered and reviewed FINDINGS: There is normal alignment. Craniocervical junction has an unremarkable appearance. C2-C3: Unremarkable. C3-C4: There is mild bulging disc slightly eccentric toward the left with mild left-sided uncovertebral hypertrophy with canal stenosis of 9 mm and mild left lateral recess and foraminal narrowing. C4-C5: Unremarkable. C5-C6: Mild degenerative disc disease with mild concentric bulging disc slightly eccentric toward the left. There is canal stenosis at 9 mm with mild left lateral recess and foraminal narrowing. There is mild wedging of the C6 vertebral body. This however does not appear acute. Anterior osteophyte and bulging disc noted as well disc level. C6-C7: Anterior osteophytes with bulging disc anteriorly. Minimal wedging of the C7 vertebral body. This however does not appear acute. C7-T1: Unremarkable. IMPRESSION: 1. Mild wedging of C6 and C7. This however does not appear acute. No retropulsed fragments 2. Multilevel lumbar spondylosis with bulging disc with canal stenosis lateral recess and foraminal narrowing. Please see above for detailed description at each level. Dictated by: Antony Porras MD 08/24/2020 17:50 Antony Porras MD in [place] 08/24/2020 17:50
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
== END 2020-08-24 18:06 | disposition home or self-care (01) ==
LOC: ER 22:36 → 2ND 08-24 01:09
PROVIDERS: Admitting Provider Emergency Medicine; Emergency Provider Emergency Medicine; PCP Internal Medicine Adolescent Medicine; Visit Provider Internal Medicine Adolescent Medicine
DX: S22.038A Other fracture of third thoracic vertebra, initial encounter for closed fracture (principal); W00.0XXA Fall on same level due to ice and snow, initial encounter; Y92.014 Private driveway to single-family (private) house as the place of occurrence of the external cause; E11.9 Type 2 diabetes mellitus without complications; Z79.82 Long term (current) use of aspirin; Z79.84 Long term (current) use of oral hypoglycemic drugs; Z79.899 Other long term (current) drug therapy
CPT/HCPCS: 36415; 70450; 71045; 72125; 72128; 72131; 72141; 72146; 72170; 76376; 80048; 85025; 87581; 87633; 87798; 96365; 96375; 99283; G0378; J2405

== ENCOUNTER → 2020-08-25 08:52 | Outpatient (POV) | payer BC, MEDICARE, SELFPAY ==
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
[2020-08-25 12:39] VITALS: BP 158/85; PULSE 79; RESP 18; O2SAT 99; BMI 38.2
== END ==
PROVIDERS: PCP Internal Medicine Adolescent Medicine; Visit Provider Clinical Nurse Specialist Family Health
DX: M54.5 Low back pain (principal); M54.16 Radiculopathy, lumbar region
CPT/HCPCS: 99202; G0463

== ENCOUNTER → 2020-11-19 09:51 | Outpatient (CLI) | payer BC, MEDICARE, SELFPAY ==
--- NOTE | 2020-11-19 10:15 | XR_ITS ---
PROCEDURE INFORMATION: Exam: XR Chest Exam date and time: 11/19/2020 10:15 AM Age: 65 years old Clinical indication: Wheezing TECHNIQUE: Imaging protocol: XR of the chest. Views: 2 views. COMPARISON: CR XR CHEST AP 08/23/2020 9:49 PM FINDINGS: Lungs: Hyperexpanded lung sheriff consistent with COPD Pleural spaces: Unremarkable. No pleural effusion. No pneumothorax. Heart/Mediastinum: Unremarkable. No cardiomegaly. Bones/joints: Unremarkable. IMPRESSION: Hyperexpanded lung sheriff consistent with COPD
[2020-11-19 10:48] LABS: Basophils # 0.1 K/mm3 (0-0.2); Basophils % 0.7 % (0.1-2.0); Eosinophils # 0.3 K/mm3 (0.0-0.4); Eosinophils % 3.6 % (0.1-12.0); Hematocrit 48.4 % (42.0-52.0); Hemoglobin 16.4 g/dL (14.1-18.0); Lymphocytes # 2.2 K/mm3 (0.7-4.5); Lymphocytes % 30.6 % (10-50); Mean Corpuscular HGB Conc 33.8 g/dL (31.8-35.4); Mean Corpuscular Hemoglobin 29.2 pg (27.0-31.2); Mean Corpuscular Volume 86.4 fl (80-94); Mean Platelet Volume 7.7 fl (7.4-10.4); Monocytes # 0.4 K/mm3 (0.1-1.0); Monocytes % 5.1 % (1.7-9.3); Neutrophils # 4.3 K/mm3 (1.8-7.8); Platelet Count 258 K/mm3 (142-424); Red Blood Count 5.61 M/mm3 (4.60-6.20); White Blood Count 7.2 K/mm3 (4.8-10.8)
[2020-11-19 11:12] LABS: Chloride 106 mmol/L (98-107); Potassium 4.4 mmoL/L (3.5-5.1); Sodium 139 mmol/L (136-145)
[2020-11-19 11:14] LABS: Blood Urea Nitrogen 17 mg/dl (9-20); Estimated Glomerular Filt Rate 84 ml/min (>60); GFR (African American) 102 ML/MIN (>60)
[2020-11-19 11:15] LABS: Alanine Aminotransferase 39 U/L (12-78); Albumin Level 4.5 g/dl (3.5-5.0); Alkaline Phosphatase 75 U/L (38-126); Anion Gap 13.4 mEq/L (5-15); Aspartate Amino Transferase 33 U/L (17-59); Bilirubin,Total 2.2 mg/dl (0.2-1.3); Calcium 9.6 mg/dl (8.4-10.2); Carbon Dioxide 24 mmol/L (22.0-30.0); Globulin 2.3 g/dL (1.3-3.2); Glucose 133 mg/dl (74-100); Total Protein,Serum 6.8 g/dl (6.3-8.2)
== END ==
PROVIDERS: PCP Internal Medicine Adolescent Medicine; Visit Provider Internal Medicine Adolescent Medicine
DX: R06.09 Other forms of dyspnea (principal); R06.2 Wheezing; J18.0 Bronchopneumonia, unspecified organism
CPT/HCPCS: 36415; 71046; 80053; 83735; 83880; 85025

== ENCOUNTER → 2021-05-08 17:08 | Outpatient (CLI) | payer BC, MEDICARE, SELFPAY | PROVIDERS: Visit Provider Nurse Practitioner Family | DX: L72.3 Sebaceous cyst (principal) | CPT/HCPCS: 87070; 87205 ==

== ENCOUNTER → 2021-09-06 11:27 | Outpatient (CLI) | payer BC, MEDICARE, SELFPAY ==
[2021-09-06 12:20] LABS: Basophils # 0.1 K/mm3 (0-0.2); Basophils % 0.7 % (0.1-2.0); Eosinophils # 1.7 K/mm3 (0.0-0.4); Hematocrit 49.4 % (42.0-52.0); Hemoglobin 16.5 g/dL (14.1-18.0); Lymphocytes # 2.3 K/mm3 (0.7-4.5); Lymphocytes % 23.9 % (10-50); Mean Corpuscular HGB Conc 33.5 g/dL (31.8-35.4); Mean Corpuscular Volume 89.7 fl (80-94); Mean Platelet Volume 8.5 fl (7.4-10.4); Monocytes # 0.4 K/mm3 (0.1-1.0); Monocytes % 4.2 % (1.7-9.3); Neutrophils % 53.2 % (37.0-80.0); Platelet Count 268 K/mm3 (142-424); Red Blood Count 5.51 M/mm3 (4.60-6.20); Red Cell Distribution Width 13.9 % (11.5-17.5); White Blood Count 9.5 K/mm3 (4.8-10.8)
[2021-09-06 12:46] LABS: Chloride 103 mmol/L (98-107); Sodium 135 mmol/L (136-145)
[2021-09-06 12:48] LABS: Blood Urea Nitrogen 14 mg/dl (9-20); Estimated Glomerular Filt Rate 96 ml/min (>60); GFR (African American) 117 ML/MIN (>60)
[2021-09-06 12:49] LABS: Alanine Aminotransferase 33 U/L (12-78); Albumin Level 4.4 g/dl (3.5-5.0); Albumin/Globulin Ratio 1.9 (1.1-1.8); Alkaline Phosphatase 66 U/L (38-126); Aspartate Amino Transferase 30 U/L (17-59); Bilirubin,Total 2.2 mg/dl (0.2-1.3); Calcium 8.7 mg/dl (8.4-10.2); Carbon Dioxide 26 mmol/L (22.0-30.0); Globulin 2.3 g/dL (1.3-3.2); Glucose 103 mg/dl (74-100); Total Protein,Serum 6.7 g/dl (6.3-8.2)
[2021-09-06 13:05] LABS: Triiodothryronine (T3) Uptake 32 % (23.5-40.5)
[2021-09-06 13:06] LABS: Free Thyroxine Index 3.5 ug/dL (5.93-13.13); T4 (Thyroxine) 10.8 ug/dl (5.53-11.0)
[2021-09-06 13:19] LABS: Thyroid Stimulating Hormone 1.44 uIU/mL (0.465-4.68)
[2021-09-06 13:52] LABS: Campylobacter Not Detected (NotDetected); Clostridium Difficile A/B, PCR Not Detected (NotDetected); Enteroaggregative E coli Not Detected (NotDetected); Enteropathogenic E coli Not Detected (NotDetected); Enterotoxigenic E coli Not Detected (NotDetected); Plesimonas Shigalloides, PCR Not Detected (NotDetected); Salmonella, PCR Not Detected (NotDetected); Vibrio Cholerae Not Detected (NotDetected); Vibrio, PCR Not Detected (NotDetected); Yersinia Entercolitica, PCR Not Detected (NotDetected)
[2021-09-06 13:53] LABS: Adenovirus F 40/41, stool Not Detected (NotDetected); Astrovirus Not Detected (NotDetected); Cryptosporidium Not Detected (NotDetected); Cyclospora Cayetanesis Not Detected (NotDetected); Entamoeba histolytica Not Detected (NotDetected); Giardia lamblia Not Detected (NotDetected); Norovirus Not Detected (NotDetected); Rotavirus A Not Detected (NotDetected); Sapovirus Not Detected (NotDetected); Shiga-like toxin E coli Not Detected (NotDetected); Shigella Enterovasive E coli Not Detected (NotDetected)
== END ==
PROVIDERS: Visit Provider Internal Medicine Adolescent Medicine
DX: R10.84 Generalized abdominal pain (principal); R19.7 Diarrhea, unspecified; Z79.899 Other long term (current) drug therapy
CPT/HCPCS: 36415; 80053; 84436; 84443; 84479; 85025; 87506

== ENCOUNTER → 2021-12-21 08:27 | Outpatient (CLI) | payer BC, MEDICARE, SELFPAY ==
--- NOTE | 2021-12-21 08:31 | XR_ITS ---
FINAL REPORT CLINICAL HISTORY: kidney stone FINDINGS: SINGLE VIEW ABDOMEN A single view of the abdomen was obtained. There is a nonobstructive bowel gas pattern. There is a moderate amount of retained stool in the colon. There are no abnormally dilated loops of small bowel. There is a 7 mm presumed stone in the lower pole the left kidney. There are multiple presumed phleboliths noted in the pelvis. There are mild degenerative changes of the lumbar spine. IMPRESSION: Presumed 7 mm left renal stone. Nonobstructive bowel gas pattern with a moderate amount of retained stool. Reviewed, Interpreted and Dictated by Fili Dupree III, MD Transcribed by Jeannetet Garay Authenticated and [facility]
== END ==
PROVIDERS: PCP Internal Medicine Adolescent Medicine; Visit Provider Urology
DX: N20.0 Calculus of kidney (principal)
CPT/HCPCS: 74018

== ENCOUNTER → 2022-01-02 08:44 | Outpatient (POV) | payer BC, MEDICARE, SELFPAY | PROVIDERS: Visit Provider Dermatology | DX: Z00.00 Encounter for general adult medical examination without abnormal findings (principal) ==

== ENCOUNTER → 2022-02-06 08:09 | Outpatient (POV) | payer BC, MEDICARE, SELFPAY | PROVIDERS: Visit Provider Dermatology | DX: Z00.00 Encounter for general adult medical examination without abnormal findings (principal) ==

== ENCOUNTER → 2023-03-01 17:29 | Outpatient (CLI) | payer BC, MEDICARE, SELFPAY | PROVIDERS: PCP Physician Assistant; Visit Provider Physician Assistant | DX: B95.7 Other staphylococcus as the cause of diseases classified elsewhere; L03.011 Cellulitis of right finger | CPT/HCPCS: 87070; 87077; 87186; 87205 ==

== ENCOUNTER 2023-04-07 18:18 | Emergency (ER) | payer MEDICARE, BC, SELFPAY ==
[2023-04-07 18:19] VITALS: BP 139/86; PULSE 94; RESP 17; TEMP 36.8; O2SAT 96; BMI 36.9
--- NOTE | 2023-04-07 18:32 | PC.NURSE ---
pt attempting to give urine sample
--- NOTE | 2023-04-07 18:57 | HMH.EDGENADL ---
Discharge Plan Disposition Patient Disposition: Home, Self-Care Prescriptions Prescriptions: No Action levocetirizine 5 mg tablet 5 mg PO DAILY montelukast 10 mg tablet 10 mg PO DAILY Patient Comments: TAKE 1 TABLET BY MOUTH ONCE DAILY latanoprost 0.005 % drops 1 drp OPHTHALMIC DAILY dorzolamide-timolol 22.3-6.8 mg/mL drops 1 drp OPHTHALMIC BID Ozempic 0.25 mg or 0.5 mg (2 mg/3 mL) pen injector See Rx Instructions .ROUTE .COMPLEX Rx Instructions: per Dr. Simmons Referrals Follow up/Referrals: Sarmad Simmons MD [Primary Care Provider] - See instructions Activity Restrictions/Add. Instructions Additional Instructions/Restrictions: No emergent medical condition today identified this is most likely viral in nature. Possible this is a side effect from your Ozempic please discuss the case with Dr. Jaimes. Additionally your bilirubin is chronically elevated most likely secondary to fatty liver Perdomo steatosis. Please return to the emergency department with any inability to tolerate fluids significant abdominal pain fevers or other concerns. Clinical Impressions Clinical Impression: Diarrhea, Dehydration, moderate, Hyperbilirubinemia Instructions Patient Instructions: DI for Diarrhea and Traveler's Diarrhea -- Adult, DI for Diarrhea and Traveler's Diarrhea -- Child, DI for Nausea -- Adult, DI for Nausea -- Child Discharge ED Provider: Hossein Tejeda General Adult HPI General Chief complaint: Nausea/Vomiting/Diarrhea Stated complaint: nausea, poss food poisoning Time Seen by Provider: 04/07/23 18:45 Mode of Arrival: Family Vehicle Source of Information: Patient Limitations: No Limitations Description of Symptoms (Recalled from ER Triage Doc. by RN): Pt c/o nausea, vomiting, and diarrhea. Denies any constant abd pain, but does note cramping. He began to have GI symtoms Saturday. Saturday he felt a little better and ate @ [employer]. Today, he had chilli for lunch at [employer] and his GI issues returned. He's also is on Ozempic for weight-loss, however he is concerned about the side-effects and GI warnings. He also has hernias that he was supposed to have had surgically repaired in 2019. History of Present Illness HPI narrative: Patient is a 68-year-old male here with profuse diarrhea and a few episodes of nausea and vomiting that have gone on for the last 48 hours. He believes that it is food poisoning but his ate the same food and his not sick. He states that he had 2 episodes of nausea that have since resolved has been able to tolerate p.o. fluids since that time however his urine has been darker than normal. He denies any significant abdominal pain. Denies any blood in his stool denies any fevers. States he had at least 50 loose watery bowel movements over the last 48 hours. Related Data Home Medications Medication Instructions Recorded Confirmed levocetirizine 5 mg tablet 5 mg PO DAILY Allergy symptoms 11/26/19 04/07/23 dorzolamide 22.3 mg-timolol 6.8 1 drp ophthalmic (eye) BID eye 09/14/21 04/07/23 mg/mL eye drops latanoprost 0.005 % eye drops 1 drp ophthalmic (eye) DAILY eye 09/14/21 04/07/23 montelukast 10 mg tablet 10 mg PO DAILY Allergy Symptoms 09/14/21 04/07/23 semaglutide 0.25 mg or 0.5 mg (2 See Rx Instructions .Route 04/07/23 04/07/23 mg/3 mL) subcutaneous pen injector .COMPLEX Diabetes (Ozempic) Allergies Allergy/AdvReac Type Severity Reaction Status Date / Time tetanus and diphtheria Allergy Intermediate PASSED OUT Verified 08/16/22 08:45 toxoids [TETANUS & DIPHTHERIA TOXOIDS] [facility] Disclaimer: The information contained in this section may have been updated after the patient was seen, as this information can be updated by other users. Medical History (Updated 04/07/23 @ 19:47 by Hossein Tejeda MD) Diabetes Social History Smoking Status: Never smoker alcohol intake: never substance use type: denies use cur
[2023-04-07 19:18] LABS: Basophils % 0.3 % (0.1-2.0); Eosinophils # 0.3 K/mm3 (0.0-0.4); Eosinophils % 2.7 % (0.1-12.0); Hematocrit 50.7 % (42.0-52.0); Lymphocytes # 2.3 K/mm3 (0.7-4.5); Lymphocytes % 21.5 % (10-50); Mean Corpuscular HGB Conc 33.5 g/dL (31.8-35.4); Mean Corpuscular Hemoglobin 29.5 pg (27.0-31.2); Mean Corpuscular Volume 88.2 fl (80-94); Mean Platelet Volume 7.9 fl (7.4-10.4); Monocytes # 0.7 K/mm3 (0.1-1.0); Monocytes % 6.8 % (1.7-9.3); Neutrophils # 7.2 K/mm3 (1.8-7.8); Neutrophils % 68.7 % (37.0-80.0); Platelet Count 278 K/mm3 (142-424); Red Blood Count 5.75 M/mm3 (4.60-6.20); Red Cell Distribution Width 13.9 % (11.5-17.5); White Blood Count 10.5 K/mm3 (4.8-10.8)
[2023-04-07 19:24] LABS: Chloride 107 mmol/L (98-107); Potassium 3.6 mmoL/L (3.5-5.1); Sodium 140 mmol/L (136-145)
[2023-04-07 19:27] LABS: Alanine Aminotransferase 29 U/L (12-78); Albumin/Globulin Ratio 1.4 (1.1-1.8); Alkaline Phosphatase 65 U/L (38-126); Anion Gap 11.6 mEq/L (5-15); Aspartate Amino Transferase 27 U/L (17-59); Bilirubin,Total 2.8 mg/dl (0.2-1.3); Blood Urea Nitrogen 18 mg/dl (9-20); Calcium 9.2 mg/dl (8.4-10.2); Carbon Dioxide 25 mmol/L (22.0-30.0); Creatinine Clearance Estimated 125 mL/min (50-200); Estimated Glomerular Filt Rate 96 ml/min (>60); GFR (African American) 116 ML/MIN (>60); Globulin 2.8 g/dL (1.3-3.2); Glucose 113 mg/dl (74-100); Magnesium 1.7 mg/dl (1.6-2.3); Phosphorous 2.5 mg/dl (2.5-4.5); Total Protein,Serum 6.8 g/dl (6.3-8.2)
--- NOTE | 2023-04-07 19:44 | PC.NURSE ---
Patient aware that he needs to provide a stool sample
[2023-04-07 19:56] VITALS: BP 143/81; PULSE 80; RESP 18; TEMP 36.7; O2SAT 97
[2023-04-07 19:56] LABS: Adenovirus F 40/41, stool Not Detected (NotDetected); Astrovirus Not Detected (NotDetected); Campylobacter Not Detected (NotDetected); Cryptosporidium Not Detected (NotDetected); Cyclospora Cayetanesis Not Detected (NotDetected); Entamoeba histolytica Not Detected (NotDetected); Enteroaggregative E coli Not Detected (NotDetected); Enteropathogenic E coli Not Detected (NotDetected); Enterotoxigenic E coli Not Detected (NotDetected); Giardia lamblia Not Detected (NotDetected); Norovirus Not Detected (NotDetected); Plesimonas Shigalloides, PCR Not Detected (NotDetected); Rotavirus A Not Detected (NotDetected); Salmonella, PCR Not Detected (NotDetected); Sapovirus Not Detected (NotDetected); Shiga-like toxin E coli Not Detected (NotDetected); Shigella Enterovasive E coli Not Detected (NotDetected); Vibrio Cholerae Not Detected (NotDetected); Vibrio, PCR Not Detected (NotDetected); Yersinia Entercolitica, PCR Not Detected (NotDetected)
[2023-04-10 11:03] LABS: Clostridium Difficile A/B, PCR Detected (NotDetected)
== END 2023-04-07 19:57 | disposition home or self-care (01) ==
PROVIDERS: Emergency Provider Student in an Organized Health Care Education/Training Program; PCP Internal Medicine Adolescent Medicine
DX: E86.0 Dehydration; R19.7 Diarrhea, unspecified; A04.72 Enterocolitis due to Clostridium difficile, not specified as recurrent; E80.6 Other disorders of bilirubin metabolism; E11.9 Type 2 diabetes mellitus without complications; Z79.85 Long-term (current) use of injectable non-insulin antidiabetic drugs
CPT/HCPCS: 80053; 83735; 84100; 85025; 87507; 96360; 99284

== ENCOUNTER 2023-08-12 11:23 | Outpatient (CLI) | payer BC, MEDICARE, SELFPAY ==
--- NOTE | 2023-08-12 11:29 | CT_ITS ---
FINAL REPORT TECHNIQUE: Axial images through the abdomen and pelvis were performed without contrast.This study was performed with techniques to keep radiation doses as low as reasonably achievable, (ALARA). Individualized dose reduction techniques using automated exposure control or adjustment of mA and/or kV according to the patient's size were employed. CLINICAL HISTORY: STONE STUDY, HX OF KIDNEY STONES, BLOOD IN URINE FINDINGS: ABDOMEN: Mild scarring is seen at the lung bases. The heart size is normal. There is mild fatty infiltration of the liver. Gallbladder is partially collapsed.. The spleen is normal. No adrenal mass is identified. The aorta is normal in caliber. There is no significant free fluid or adenopathy. There are several, less than 3 mm bilateral nonobstructing renal stones. There is mild left hydronephrosis secondary to a 9 mm left UPJ stone. There is a small umbilical hernia containing fat. PELVIS: The appendix is not identified. The urinary bladder is unremarkable. There is no significant free fluid or adenopathy. IMPRESSION: Mild left hydronephrosis secondary to a 9 mm left UPJ stone. Reviewed, Interpreted and Dictated by Fili Dupree III, MD Transcribed by Ale Scott Authenticated and [facility]
== END 2023-08-12 23:59 ==
LOC: RAD 11:25
PROVIDERS: PCP Internal Medicine Adolescent Medicine; Visit Provider Internal Medicine Adolescent Medicine
DX: R31.0 Gross hematuria (principal); Z87.442 Personal history of urinary calculi
CPT/HCPCS: 74176

== ENCOUNTER 2023-08-19 21:28 | Emergency (ER) | payer BC, MEDICARE, SELFPAY ==
[2023-08-19 21:30] VITALS: BP 208/117; PULSE 81; RESP 16; TEMP 36.5; O2SAT 99; BMI 38.2
[2023-08-19] MEDS: KETOROLAC 30MG/ML VIAL 30 MG IV (21:53)
[2023-08-19] MEDS: ONDANSETRON 4MG/2ML VIAL 4 MG IV (21:53)
[2023-08-19] MEDS: LACTATED RINGERS 1000ML 1,000 ML 999 ML IV (21:53)
[2023-08-19] MEDS: ACETAMINOPHEN 1,000MG/100ML VIAL 1000 MG IV (21:54)
[2023-08-19 22:03] LABS: Chloride 108 mmol/L (98-107); Potassium 3.7 mmoL/L (3.5-5.1); Sodium 139 mmol/L (136-145)
[2023-08-19 22:04] LABS: Basophils % 0.3 % (0.1-2.0); Eosinophils # 0.3 K/mm3 (0.0-0.4); Eosinophils % 2.2 % (0.1-12.0); Hematocrit 47.5 % (42.0-52.0); Hemoglobin 16.5 g/dL (14.1-18.0); Lymphocytes # 1.9 K/mm3 (0.7-4.5); Lymphocytes % 17.1 % (10-50); Mean Corpuscular HGB Conc 34.7 g/dL (31.8-35.4); Mean Corpuscular Hemoglobin 30.5 pg (27.0-31.2); Mean Platelet Volume 7.8 fl (7.4-10.4); Monocytes # 0.7 K/mm3 (0.1-1.0); Monocytes % 6.1 % (1.7-9.3); Neutrophils # 8.3 K/mm3 (1.8-7.8); Neutrophils % 74.4 % (37.0-80.0); Platelet Count 223 K/mm3 (142-424); Red Blood Count 5.39 M/mm3 (4.60-6.20); Red Cell Distribution Width 13.8 % (11.5-17.5); White Blood Count 11.2 K/mm3 (4.8-10.8)
[2023-08-19 22:05] LABS: Alanine Aminotransferase 41 U/L (12-78); Blood Urea Nitrogen 16 mg/dl (9-20); Creatinine Clearance Estimated 130 mL/min (50-200); Estimated Glomerular Filt Rate 84 ml/min (>60); GFR (African American) 101 ML/MIN (>60)
[2023-08-19 22:06] LABS: Albumin Level 4.3 g/dl (3.5-5.0); Albumin/Globulin Ratio 1.5 (1.1-1.8); Alkaline Phosphatase 74 U/L (38-126); Anion Gap 6.7 mEq/L (5-15); Aspartate Amino Transferase 40 U/L (17-59); Bilirubin,Total 2.4 mg/dl (0.2-1.3); Calcium 10.2 mg/dl (8.4-10.2); Carbon Dioxide 28 mmol/L (22.0-30.0); Globulin 2.8 g/dL (1.3-3.2); Glucose 143 mg/dl (74-100); Total Protein,Serum 7.1 g/dl (6.3-8.2)
[2023-08-19 22:31] VITALS: BP 151/84; PULSE 65; O2SAT 97
[2023-08-19 23:01] VITALS: BP 153/92; PULSE 63; O2SAT 97
--- NOTE | 2023-08-19 23:05 | HMH.EDGENADL ---
Discharge Plan Disposition Patient Disposition: Home, Self-Care Prescriptions Prescriptions: No Action levocetirizine 5 mg tablet 5 mg PO DAILY montelukast 10 mg tablet 10 mg PO DAILY Patient Comments: TAKE 1 TABLET BY MOUTH ONCE DAILY latanoprost 0.005 % drops 1 drp OPHTHALMIC DAILY dorzolamide-timolol 22.3-6.8 mg/mL drops 1 drp OPHTHALMIC BID Ozempic 0.25 mg or 0.5 mg (2 mg/3 mL) pen injector See Rx Instructions .ROUTE .COMPLEX Rx Instructions: per Dr. Simmons Referrals Follow up/Referrals: Sarmad Simmons MD [Primary Care Provider] - See instructions Activity Restrictions/Add. Instructions Additional Instructions/Restrictions: Please take ibuprofen as needed for pain. Please take one of your 5 mg / 325 mg hydrocodone/Tylenol as needed for pain. Okay to take 1 additional pill if symptoms are persistent. Please follow-up for your previously scheduled lithotripsy. Clinical Impressions Clinical Impression: Ureterolithiasis, Acute flank pain Instructions Patient Instructions: DI for Acute Abdominal Pain Discharge ED Provider: Karthikeyan Avalos Adult HPI General Chief complaint: Abdominal Pain Stated complaint: possible kidney stones Time Seen by Provider: 08/19/23 22:58 Mode of Arrival: Ambulatory Source of Information: Patient Limitations: No Limitations Description of Symptoms (Recalled from ER Triage Doc. by RN): pt c/o LLQ pain with vomitting. pt has know kidney stones and scheduled for procedure in AM but pain has become unbearable History of Present Illness HPI narrative: 68-year-old male presents for worsening flank pain in the setting of known large obstructing kidney stones. He reports that he has a follow-up appointment scheduled with urology for tomorrow for a lithotripsy, he has been prescribed some pain medication at home but it has not been sufficient. He reports that he took Tylenol and one of his [place] at home but pain has been worsening. He denies taking any NSAIDs. Related Data Home Medications Medication Instructions Recorded Confirmed levocetirizine 5 mg tablet 5 mg PO DAILY Allergy symptoms 11/26/19 04/07/23 dorzolamide 22.3 mg-timolol 6.8 1 drp ophthalmic (eye) BID eye 09/14/21 04/07/23 mg/mL eye drops latanoprost 0.005 % eye drops 1 drp ophthalmic (eye) DAILY eye 09/14/21 04/07/23 montelukast 10 mg tablet 10 mg PO DAILY Allergy Symptoms 09/14/21 04/07/23 semaglutide 0.25 mg or 0.5 mg (2 See Rx Instructions .Route 04/07/23 04/07/23 mg/3 mL) subcutaneous pen injector .COMPLEX Diabetes (Ozempic) Allergies Allergy/AdvReac Type Severity Reaction Status Date / Time tetanus and diphtheria Allergy Intermediate PASSED OUT Verified 08/16/22 08:45 toxoids [TETANUS & DIPHTHERIA TOXOIDS] [facility] Disclaimer: The information contained in this section may have been updated after the patient was seen, as this information can be updated by other users. 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 current occupational exposures/hazards: No ROS Obtained: Yes All systems reviewed & no additional complaints except as documented Physical Exam General General appearance: alert and in no apparent distress Head Head exam: atraumatic and normocephalic Eye Eye exam: Present normal appearance, PERRL and EOMI ENT ENT exam: Present normal oropharynx and normal external ear exam Neck Neck exam: Present normal inspection and full ROM Chest Chest inspection: Present normal inspection and symmetric chest wall rise; Absent tenderness Respiratory Respiratory exam: Present normal lung sounds bilaterally; Absent respiratory distress Cardiovascular Cardiovascular exam: Present regular rate and normal rhythm Abdominal Exam Abdominal exam: Present soft; Absent distention, tenderness or guarding Extremities Exam Extremities exam: Present normal inspection; Absent edema or joint swelling Back Exam Back exam: Present normal inspection and CVA tenderness (L); Absent tenderness Neurological Exam Neurological exam: Present alert and oriented X3; Absent motor sensory deficit Psychiatric Psychiatric exam: Present normal affect and normal mood Skin Skin exam: Present warm, dry and normal color Lymphatic Lymphatic Findings: no adenopathy Medical Decision Making Medical Records Medical records reviewed: Yes I reviewed the patient's medical records. Christiano Inquiry Pt receiving controlled substance: No Christian[place] was queried for this patient: No Vital Signs: 08/19/23 21:30 08/19/23 22:31 08/19/23 23:01 Temperature 97.7 F Temperature Source Oral Pulse Rate 65 63 Pulse Rate [Right] 81 Respiratory Rate 16 Blood Pressure 151/84 H 153/92 H Blood Pressure [Right Arm] 208/117 H Blood Pressure Mean 101 Blood Pressure Mean [Right Arm] 147 02 Sat by Pulse Oximetry 99 97 97 08/19/23 23:31 Temperature Temperature Source Pulse Rate 60 Pulse Rate [Right] Respiratory Rate Blood Pressure 126/91 H Blood Pressure [Right Arm] Blood Pressure Mean 97 Blood Pressure Mean [Right Arm] 02 Sat by Pulse Oximetry 97 Lab Data Lab results reviewed: Yes I reviewed the patient's lab results. Lab Results 08/19/23 21:38: WBC 11.2 H, RBC 5.39, Hgb 16.5, Hct 47.5, MCV 88.0, MCH 30.5, MCHC 34.7, RDW 13.8, Plt Count 223, MPV 7.8, Neut % (Auto) 74.4, Lymph % (Auto) 17.1, [place] % (Auto) 6.1, Eos % (Auto) 2.2, Baso % (Auto) 0.3, Neut # (Auto) 8.3 H, Lymph # (Auto) 1.9, [place] # (Auto) 0.7, Eos # (Auto) 0.3, Baso # (Auto) 0.0, Sodium 139, Potassium 3.7, Chloride 108 H, Carbon Dioxide 28, Anion Gap 6.7, BUN 16, Creatinine 0.90, Estimated Creat Clear 130, Estimated GFR 84, Est GFR ( Amer) 101, Glucose 143 H, Calcium 10.2, Total Bilirubin 2.4 H, AST 40, ALT 41, Alkaline Phosphatase 74, Total Protein 7.1, Albumin 4.3, Globulin 2.8, Albumin/Globulin Ratio 1.5 08/19/23 23:15: Urine Color Yellow, Urine Appearance Clear, Urine pH 7.0, Ur Specific Center 1.020, Urine Protein Negative, Urine Glucose (UA) Trace, Urine Ketones Negative, Urine Blood 2+, Urine Nitrate Negative, Urine Bilirubin Negative, Urine Urobilinogen 0.2, Ur Leukocyte Esterase Negative, Urine RBC 10-20, Urine WBC Occasional, Ur Squamous Epith Cells Occasional, Urine Bacteria 1+ 08/19/23 21:38 08/19/23 21:38 Orders (Tests/Meds): ED MEDICATIONS Discontinued Medications Generic Name Dose Route Start Last Admin Trade Name Jonas PRN Reason Stop Dose Admin Acetaminophen 1,000 mg 08/19/23 21:43 08/19/23 21:54 Acetaminophen 1,000mg/100ml Vial IV 08/19/23 21:44 1,000 mg ONCE ONE Administration Lactated Ringer's 1,000 mls @ 999 mls/hr 08/19/23 21:43 08/19/23 21:53 Lactated Ringer's 1000 Ml Bag IV 08/19/23 22:43 999 mls/hr .Q1H1M ONE Administration Ketorolac Tromethamine 30 mg 08/19/23 21:43 08/19/23 21:53 Ketorolac 30mg/Ml Vial IV 08/19/23 21:44 30 mg ONCE ONE Administration Morphine Sulfate 4 mg 08/19/23 23:05 08/19/23 23:12 Morphine 4mg/Ml Syringe IV 08/19/23 23:06 4 mg ONCE ONE Administration Ondansetron HCl 4 mg 08/19/23 21:47 08/19/23 21:53 Ondansetron 4mg/2ml Vial IV 08/19/23 21:48 4 mg ONCE ONE Administration ORDERS Category Date Time Status Complete Blood Count Auto Diff Stat Lab 08/19/23 21:38 Completed Comprehensive Metabolic Panel Stat Lab 08/19/23 21:38 Completed Urinalysis and Microscopic Stat Lab 08/19/23 23:15 Completed Medical Decision Narrative: 68-year-old male with history of known obstructing kidney stones with plan for lithotripsy tomorrow on an outpatient basis presents for worsening pain. History was obtained interactive discussion with patient, family, chart review. On arrival, patient is [afebrile, hemodynamically stable, satting appropriately, alert, oriented x4, GCS 15], moving all extremities spontaneously. Full physical exam performed and significant for left flank pain Differential includes but is not limited to obstructive nephrolithiasis, EMILIANO, urinary tract infection. Patient was given 1 g of Tylenol, 30 mg of IV Toradol, 1 L fluid bolus, 4 mg morphine 4 mg Zofran for symptomatic management and correction of underlying abnormalities. Workup initiated including CBC CMP urinalysis. On re-evaluation, patient [remains afebrile, HD stable.] He reports marked symptomatic improvement. Laboratory workup independently interpreted by me and significant for minimal leukocytosis, no evidence of EMILIANO, urine without evidence of infection.. CT imaging was considered, but deemed unnecessary due to low utility given known obstructing stones. Given patient history, exam and workup, patient's presentation most likely represents symptomatic ureterolithiasis. I had extensive discussion with patient regarding pain control. Recommend NSAIDs as first-line. Recommend he take previously prescribed oxy 5mg/ tylenol 325mg as needed for severe pain. Okay to take 1 additional dose within the 6-hour as needed for severe pain. Return precautions given. Patient will follow-up with his outpatient urology appointment tomorrow. Procedures Risk/Benefits of Procedure(s) Were Explained: Yes Critical Care Critical Care Time Critical Care Time: No
[2023-08-19] MEDS: MORPHINE 4MG/ML SYRINGE 4 MG IV (23:12)
[2023-08-19 23:18] LABS: Microscopic, Urine URINE MICROSCOPIC (MICROSCOPIC)
[2023-08-19 23:31] VITALS: BP 126/91; PULSE 60; O2SAT 97
[2023-08-19 23:39] LABS: Appearance,Urine CLEAR (Clear); Bilirubin,Urine Negative (Negative); Blood, Urine 2+ (Negative); Color,Urine YELLOW (Yellow); Glucose,Urine (UA) TRACE (Negative); Ketones,Urine Negative (Negative); Leukocyte Esterase,Urine Negative (Negative); Nitrate,Urine Negative (Negative); Protein,Urine Negative (Negative); Urobilinogen,Urine 0.2 EU/dl (0.2)
[2023-08-19 23:55] LABS: Bacteria,Urine 1+ /lpf; Squamous Epithelial Cell,Urine Occasional #/hpf (0-5); WBC,Urine Occasional #/hpf (0-3)
[2023-08-20 00:20] VITALS: BP 121/79; PULSE 64; RESP 16; TEMP 36.5; O2SAT 97
== END 2023-08-20 00:21 | disposition home or self-care (01) ==
PROVIDERS: Emergency Medicine; Emergency Provider Emergency Medicine; PCP Internal Medicine Adolescent Medicine
DX: N20.1 Calculus of ureter (principal); R10.32 Left lower quadrant pain; E11.9 Type 2 diabetes mellitus without complications
CPT/HCPCS: 80053; 81001; 85025; 96361; 96374; 96375; 99285; J0131; J2405

== ENCOUNTER 2024-03-24 09:42 | Day surgery (SDC) | payer MEDICARE, SELFPAY ==
[2024-03-24 09:58] VITALS: BP 145/86; PULSE 69; RESP 16; O2SAT 95; BMI 38.2
[2024-03-24] MEDS: BUPIVACAINE 0.25% 10ML INJ 25 MG IJ (10:23)
[2024-03-24] MEDS: methylPREDNISolone ACETATE 80MG/ML VIAL 80 MG (10:23)
[2024-03-24] MEDS: LIDOCAINE 1% 5ML PF VIAL 5 ML (10:23)
[2024-03-24 10:33] VITALS: BP 139/79; PULSE 61; RESP 18; O2SAT 95
--- NOTE | 2024-03-24 10:36 | P.PCN_ITS ---
Procedure Date: 03/24/24 Time: 10:20 Anesthesiologist:: Parker Moore CRNA Complications:: None Pre-procedure Diagnosis:: Degenerative disc lumbar spine multilevels. Lumbar radiculopathy. Lumbar spinal stenosis. Lumbar facet arthropathy. Lumbar spondylosis. Post-procedure Diagnosis:: Same. Indications for Procedure:: Patient is a very pleasant 69-year-old male who comes our clinic today for round ONE of lumbar medial branch block bilateral L4-5, L5-S1 levels. Patient describes low back pain as constant, dull, aching. He reports difficulty with flexion, extension, left and right rotation of the lumbar spine. He rates his pain 7/10. Procedure Details:: Informed consent was obtained and the risk and benefits of the procedure was explained to the patient. Patient was taken to the procedure room where noninvasive monitors were placed, including noninvasive blood pressure cuff as well as pulse oximeter. The area over the lumbar spine was cleansed using chlorhexidine as a cleansing solution. I anesthetized the skin and subcutaneous tissues with 1% Lidocaine. I placed 22-gauge spinal needles into the facet joint/ medial branches of L4-L5, and L5-S1] bilaterally. Needle placement was confirmed with fluoroscopy. After confirmation of needle placement, each site was injected with 1 mL of 1% lidocaine and 0.25 % Marcaine and 10 mg of Depo- Medrol. A total of 80 mg of depo medrol was used for bilateral medial branch blocks of L4-L5, and L5-S1] bilaterally. Patient tolerated the procedure without difficulty. There were no complications. Plan and Disposition:: Patient was discharged without incident.
== END 2024-03-24 10:33 | disposition home or self-care (01) ==
PROVIDERS: PCP Internal Medicine Adolescent Medicine; Visit Provider Nurse Anesthetist, Certified Registered
DX: M47.816 Spondylosis without myelopathy or radiculopathy, lumbar region (principal); M51.36 Other intervertebral disc degeneration, lumbar region; M48.061 Spinal stenosis, lumbar region without neurogenic claudication
CPT/HCPCS: 64493; 64494; J1010

== ENCOUNTER 2024-06-02 10:00 | Outpatient (POV) | payer MEDICARE, SELFPAY | END 2024-06-02 23:59 | disposition home or self-care (01) | LOC: SC 06-03 06:58 | PROVIDERS: Visit Provider Dermatology | DX: Z00.00 Encounter for general adult medical examination without abnormal findings (principal) ==

== ENCOUNTER 2024-07-07 08:58 | Emergency (ER) | payer MEDICARE, SELFPAY ==
[2024-07-07] VITALS (10 sets, daily range): BP systolic 111–158; BP diastolic 67–95; PULSE 51–77; RESP 16; TEMP 36.6–36.7; O2SAT 94–97; BMI 38.2
--- NOTE | 2024-07-07 09:12 | PC.NURSE ---
dr schafer at bedside
--- NOTE | 2024-07-07 09:19 | CT_ITS ---
FINAL REPORT TECHNIQUE: Axial images were obtained of the thoracic spine by computed tomography. Coronal and sagittal reconstruction process performed. This study was performed with techniques to keep radiation doses as low as reasonably achievable (ALARA). Individualized dose reduction techniques using automated exposure control or adjustment of mA and/or kV according to the patient's size were employed. CLINICAL HISTORY: fall, thoracic and R chest wall pain COMPARISON: 08/23/2020 FINDINGS: There is extensive anterior osteophyte formation throughout the mid and lower thoracic spine. There is ossification of the anterior longitudinal ligaments. Thoracic vertebrae show normal height. There is no malalignment. No significant spinal canal compromise is noted. IMPRESSION: No acute abnormality identified. Reviewed, Interpreted and Dictated by Mk Merritt MD Transcribed by Jeannette Garay Authenticated and [facility]
--- NOTE | 2024-07-07 09:19 | CT_ITS ---
FINAL REPORT TECHNIQUE: multiple axial CT images were performed from the foramen magnum to the vertex without enhancement. CLINICAL HISTORY: fall, struck head twice COMPARISON: 08/23/2020 FINDINGS: The ventricles are enlarged. There is mild atrophy. Mild decreased attenuation is noted in the deep white matter. There is no evidence of hemorrhage. No masses are identified. No extra-axial fluid is seen. There is lobular mucoperiosteal thickening in both maxillary sinuses. No air-fluid levels are seen IMPRESSION: Atrophy and chronic changes without acute process. Reviewed, Interpreted and Dictated by Mk Merritt MD Transcribed by Jeannette Garay Authenticated and [facility]
--- NOTE | 2024-07-07 09:19 | CT_ITS ---
FINAL REPORT TECHNIQUE: Axial images were obtained through the chest without contrast. Coronal and sagittal reconstructions obtained and reviewed. This study was performed with techniques to keep radiation doses as low as reasonably achievable, (ALARA). Individualized dose reduction techniques using automated exposure control or adjustment of mA and/or kV according to the patient's size were employed. CLINICAL HISTORY: fall, struck post R ribs, soa COMPARISON: None FINDINGS: There is no mediastinal mass or adenopathy. The lungs are clear. The heart size is normal. There is no pericardial or pleural effusion. Limited images of the upper abdomen are unremarkable. No suspicious infiltrate or nodule identified. No definite fracture identified. IMPRESSION: No acute process. Reviewed, Interpreted and Dictated by Mk Merritt MD Transcribed by Jeannette Garay Authenticated and [facility]
--- NOTE | 2024-07-07 09:19 | CT_ITS ---
FINAL REPORT TECHNIQUE: Axial images were obtained of the cervical spine by computed tomography. Coronal and sagittal reconstruction process performed. This study was performed with techniques to keep radiation doses as low as reasonably achievable (ALARA). Individualized dose reduction techniques using automated exposure control or adjustment of mA and/or kV according to the patient''s size were employed. CLINICAL HISTORY: fall ,struck head twice COMPARISON: 08/23/2020 FINDINGS: Cervical vertebrae show normal height. There are moderate hypertrophic changes of degenerative disc disease at C5-6 and C6-7. Prominent anterior osteophyte formation is noted, particularly eccentric to the left. On the parasagittal images, there is posterior osteophyte formation eccentric to the left at C5-6. Moderate to high-grade left C5-6 neuroforaminal narrowing is noted. There is no malalignment. IMPRESSION: Degenerative changes without acute process. Reviewed, Interpreted and Dictated by Mk Merritt MD Transcribed by Jeannette Garay Authenticated and [facility]
[2024-07-07] MEDS: METHOCARBAMOL 500MG TABLET 1500 MG PO (09:27)
[2024-07-07] MEDS: ONDANSETRON 4MG ODT 4 MG SL (09:27)
[2024-07-07] MEDS: ACETAMINOPHEN 500MG TAB 1000 MG PO (09:27)
[2024-07-07] MEDS: IBUPROFEN 600 MG TABLET PO (09:27)
--- NOTE | 2024-07-07 09:49 | PC.NURSE ---
pt returned from ct
--- NOTE | 2024-07-07 09:58 | ED_ITS ---
Discharge Plan Disposition Patient Disposition: Home, Self-Care Prescriptions Prescriptions: New methocarbamol 750 mg tablet 1,500 mg PO TID 5 Days Qty: 30 0RF No Action levocetirizine 5 mg tablet 5 mg PO DAILY montelukast 10 mg tablet 10 mg PO DAILY Patient Comments: TAKE 1 TABLET BY MOUTH ONCE DAILY latanoprost 0.005 % drops 1 drp OPHTHALMIC DAILY dorzolamide-timolol 22.3-6.8 mg/mL drops 1 drp OPHTHALMIC BID dicyclomine 10 mg capsule 10 mg PO DAILY aspirin [Adult Low Dose Aspirin] 81 mg tablet,delayed release (DR/EC) 81 mg PO DAILY azelastine 137 mcg (0.1 %) aerosol,spray 2 spray intranasal BID Qty: 30 3RF Rx Instructions: administer into each nostril Referrals Follow up/Referrals: Sarmad Simmons MD [Primary Care Provider] - See instructions Activity Restrictions/Add. Instructions Additional Instructions/Restrictions: Call your family doctor to establish care for this visit to the emergency department and schedule follow-up within 48 hours to ensure improvement. If you have any worsening of your condition or any other concerning signs or symptoms, return to the emergency department or your primary care doctor for further evaluation. Clinical Impressions Clinical Impression: Intercostal muscle strain Print Language Print Language: Indonesian Discharge ED Provider: Herman Montiel General Adult HPI General Chief complaint: Fall Stated complaint: fell twice 1/6 rib/back/head pain Time Seen by Provider: 07/07/24 09:05 Mode of Arrival: Ambulatory Source of Information: Patient Limitations: No Limitations Description of Symptoms (Recalled from ER Triage Doc. by RN): Patient reports slipping on the ice twice yesterday and landing on his right side. Complaint of right sided rib pain. Denies LOC. History of Present Illness HPI narrative: Please note that above description of symptoms, in this electronic medical record under categorization of recalled from ER triage doctor by RN are reflective of an initial nursing assessment, however, is not reflective of my full history and physical exam that was personally taken and clarified. Consequentially, this preceding description of symptoms, which may include the patient's categorized chief complaint in the EMR, do not reflect my personal clinical impression, and the ultimate description of history of present illness and patient stated complaints should be deferred to this section of the note. Unless stated otherwise or congruent with this section of the note, additional signs, symptoms, or incongruence should be interpreted as inaccurate with my clinical impression. Related Data Home Medications ?Medication ?Instructions ?Recorded ?Confirmed levocetirizine 5 mg tablet 5 mg PO DAILY Allergy symptoms 11/26/19 03/24/24 dorzolamide 22.3 mg-timolol 6.8 1 drp ophthalmic (eye) BID eye 09/14/21 03/24/24 mg/mL eye drops latanoprost 0.005 % eye drops 1 drp ophthalmic (eye) DAILY eye 09/14/21 03/24/24 montelukast 10 mg tablet 10 mg PO DAILY Allergy Symptoms 09/14/21 03/24/24 aspirin 81 mg tablet,delayed 81 mg PO DAILY 11/05/23 03/24/24 release (Adult Low Dose Aspirin) dicyclomine 10 mg capsule 10 mg PO DAILY 11/05/23 03/24/24 Previous Rx's ?Medication ?Instructions ?Recorded azelastine 137 mcg (0.1 %) nasal 2 spray intranasal BID #30 mL 11/05/23 spray methocarbamol 750 mg tablet 1,500 mg (2 x 750 mg) PO TID 5 07/07/24 days #30 tabs Allergies Allergy/AdvReac Type Severity Reaction Status Date / Time tetanus and diphtheria Allergy Intermediate PASSED OUT Verified 11/05/23 10:47 toxoids (TETANUS & DIPHTHERIA TOXOIDS) [facility] Disclaimer: The information contained in this section may have been updated after the patient was seen, as this information can be updated by other users. 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 current occupational exposures/hazards: No Have you lived/traveled outside [place] in past 30 days?: No Contact w/someone who lives/traveled outside [place] past 30 days?: No Exposure to someone with infectious disease in past 14 days?: No Do you have a fever (greater than 100.4 F or 38 C)?: No Have you tested positive for COVID-19: No Exposed to someone with COVID-19 in past 14 days?: No Do you have a sore throat?: No Do you have a cough?: No Do you have any weakness?: No Do you have any diarrhea?: No Are you experiencing any unusual bleeding?: No Do you have any muscle aches/pain?: No Do you have any abdominal pain?: No Are you experiencing loss of taste or smell?: No Other Medical History Have you received the Flu Vaccine for this season: No Have you received the Pneumonia Vaccine: No ROS Obtained: Yes All systems reviewed & no additional complaints except as documented Physical Exam General General appearance: alert Head Head exam: atraumatic and normocephalic Eye Eye exam: Present normal appearance, PERRL and EOMI Neck Neck exam: Present normal inspection, full ROM, trachea midline and tenderness (Paraspinal on the left) Respiratory Respiratory exam: Present normal lung sounds bilaterally; Absent respiratory distress, wheezes, stridor, accessory muscle use or prolonged expiratory phase Cardiovascular Cardiovascular exam: Present regular rate, normal rhythm and other (Pulses equal symmetric in upper and lower extremities) Abdominal Exam Abdominal exam: Present soft; Absent distention, tenderness or pulsatile mass Extremities Exam Extremities exam: Absent edema Back Exam Back exam: Present tenderness (Posterior lateral chest wall overlying right scapula. no bruising) Neurological Exam Neurological exam: Present alert, oriented X3 and CN II-XII intact; Absent motor sensory deficit Skin Skin exam: Present warm and dry; Absent diaphoresis or erythema Medical Decision Making Medical Records Medical records reviewed: Yes I reviewed the patient's medical records. Screening: Per USPSTF and CDC recommendations, given the prevalence of disease in our region, it is our hospital?s policy to screen for HIV and viral Hepatitis for all patients aged 18 and over and those with ongoing risk factors. Christiano Inquiry Pt receiving controlled substance: No Christiano was queried for this patient: No Vital Signs: 07/07/24 08:59 07/07/24 09:53 07/07/24 10:01 Temperature 98.0 F Temperature Source Oral Pulse Rate 52 L 53 L Pulse Rate [Radial] 77 Respiratory Rate 16 Blood Pressure 124/67 121/69 Blood Pressure [Right Arm] 158/93 H Blood Pressure Mean [Right Arm] 114 Blood Pressure Source [Right Arm] Automatic Cuff Blood Pressure Position [Right Arm] Sitting 02 Sat by Pulse Oximetry 97 96 97 Oxygen Delivery Method Room Air Room Air Room Air 07/07/24 10:16 07/07/24 10:31 07/07/24 10:48 Temperature Temperature Source Pulse Rate 64 51 L 56 L Pulse Rate [Radial] Respiratory Rate Blood Pressure 128/93 H 124/67 120/79 Blood Pressure [Right Arm] Blood Pressure Mean [Right Arm] Blood Pressure Source [Right Arm] Blood Pressure Position [Right Arm] 02 Sat by Pulse Oximetry 95 96 97 Oxygen Delivery Method Room Air Room Air Room Air Orders (Tests/Meds): ED MEDICATIONS Discontinued Medications Generic Name Dose Route Start Last Admin Trade Name Freq PRN Reason Stop Dose Admin Acetaminophen 1,000 mg 07/07/24 09:19 07/07/24 09:27 Acetaminophen 500mg Tab PO 07/07/24 09:20 1,000 mg ONCE ONE Administration Ibuprofen 600 mg 07/07/24 09:19 07/07/24 09:27 Ibuprofen 600 Mg Tablet PO 07/07/24 09:20 600 mg ONCE ONE Administration Methocarbamol 1,500 mg 07/07/24 09:19 07/07/24 09:27 Methocarbamol 500mg Tablet PO 07/07/24 09:20 1,500 mg ONCE ONE Administration Ondansetron HCl 4 mg 07/07/24 09:19 07/07/24 09:27 Ondansetron 4mg Odt SL 07/07/24 09:20 4 mg ONCE ONE Administration Oxycodone HCl 5 mg 07/07/24 09:19 07/07/24 09:31 Oxycodone 5mg Immediate Release Tablet PO 07/07/24 09:20 Not Given ONCE ONE ORDERS Category Date Time Status CT cervical spine wo con Stat Cat Scan 07/07/24 09:[address] chest wo con Stat Cat Scan 07/07/24 09:[address] head/brain wo con Stat Cat Scan 07/07/24 09:[address] thoracic spine wo con Stat Cat Scan 07/07/24 09:19 Completed Medical Decision Narrative: This is a 69-year-old male presenting with fall. Patient states that he slipped in the snow yesterday fell backward, hit his head and the right side of his chest/back/shoulder. Stood up, slipped again and did the same thing. Did not lose consciousness. Patient states that his posterior right shoulder pain is mildly tender at rest, but when he takes deep breath or twists it severe in intensity does not radiate. No shortness of breath, or any other concerns. Has not taken anything for the pain. History was obtained via conversation with patient. On arrival, patient hemodynamically stable, alert, oriented x4, appropriate, GCS 15, moving all extremities spontaneously, pupils equal and reactive to light. Full physical exam performed and significant for very well- appearing male no acute distress, but intermittently having bursts of pain. States that most of his pain is in his posterior right shoulder. He does have chest wall tenderness. No outward signs of injury, deformity, bruising, etc. Bilateral breath sounds are present. No neck or spine tenderness. Differential includes rib fractures, pulmonary contusion, pneumothorax, spinal fracture, intracranial hemorrhage, among others. Patient placed on continuous cardiac monitoring and continuous pulse ox with initial blood pressure 158/93, heart rate 52, saturation 96% on room air. Patient was given Zofran, oxycodone, Robaxin, Tylenol, Motrin for symptomatic management and correction of underlying abnormalities. Workup independently interpreted and significant for nonactionable CT imaging of the head, cervical spine, thoracic spine, or chest. On reevaluation, patient resting more comfortably stating he feels much better. Given patient presentation, workup, history, this most likely represents intercostal muscle strain in the setting of fall. Because patient at baseline without signs or symptoms of clinical decompensation, deemed appropriate for discharge. Results were relayed to patient who voiced understanding and were agreeable to outpatient management and follow up. I discussed my clinical impression with patient and answered all questions. At this time, the evidence for any other entities in the differential is insufficient to warrant any further testing or ED observation. This was explained as well. Advisory was given that persistent or worsening symptoms require further evaluation. I confirmed the understanding of this discussion. Roller Leveler disclaimer Much of this encounter note is an electronic html developer spoken language to printed text. Electronic html developer of the spoken language may permit errors. Although I have reviewed the note, some errors may still exist. Critical Care Critical Care Time Critical Care Time: No
== END 2024-07-07 12:08 | disposition home or self-care (01) ==
PROVIDERS: Emergency Provider Emergency Medicine; PCP Internal Medicine Adolescent Medicine
DX: S29.011A Strain of muscle and tendon of front wall of thorax, initial encounter (principal); R07.82 Intercostal pain; M25.511 Pain in right shoulder; W00.0XXA Fall on same level due to ice and snow, initial encounter; Y93.89 Activity, other specified; Y92.89 Other specified places as the place of occurrence of the external cause
CPT/HCPCS: 70450; 71250; 72125; 72128; 99284; Q0162

== ENCOUNTER 2024-07-22 11:48 | Outpatient (CLI) | payer MEDICARE, SELFPAY ==
--- NOTE | 2024-07-22 11:53 | XR_ITS ---
FINAL REPORT CLINICAL HISTORY: foot pain FINDINGS: Left foot Three views were obtained. There is no fracture or dislocation. The joint spaces appear normal. No soft tissue abnormality is identified. IMPRESSION: No acute process. Reviewed, Interpreted and Dictated by Mk Merritt MD Transcribed by Kira Choudhary Authenticated and [facility]
--- NOTE | 2024-07-22 11:53 | XR_ITS ---
FINAL REPORT CLINICAL HISTORY: foot pain FINDINGS: Right foot Three views were obtained. There is no fracture or dislocation. The joint spaces appear normal. No soft tissue abnormality is identified. IMPRESSION: No acute process. Reviewed, Interpreted and Dictated by Mk Merritt MD Transcribed by Kira Choudhary Authenticated and [facility]
== END 2024-07-22 23:59 | disposition home or self-care (01) ==
LOC: RAD 11:49
PROVIDERS: PCP Internal Medicine Adolescent Medicine; Visit Provider Nurse Practitioner
DX: M79.671 Pain in right foot (principal); M79.672 Pain in left foot
CPT/HCPCS: 73630

== ENCOUNTER 2024-09-10 05:16 | Emergency (ER) | payer MEDICARE, SELFPAY ==
[2024-09-10 05:22] VITALS: BP 136/79; PULSE 66; RESP 20; TEMP 37; O2SAT 95; BMI 38.2
[2024-09-10 05:45] LABS: Basophils # 0.1 K/mm3 (0-0.2); Basophils % 0.8 % (0.1-2.0); Eosinophils # 0.3 K/mm3 (0.0-0.4); Eosinophils % 3.6 % (0.1-12.0); Hematocrit 44.8 % (42.0-52.0); Hemoglobin 15.5 g/dL (14.1-18.0); Lymphocytes # 2.7 K/mm3 (0.7-4.5); Lymphocytes % 34.3 % (10-50); Mean Corpuscular HGB Conc 34.6 g/dL (31.8-35.4); Mean Corpuscular Hemoglobin 29.9 pg (27.0-31.2); Mean Corpuscular Volume 86.5 fl (80-94); Mean Platelet Volume 9.7 fl (7.4-10.4); Monocytes # 0.7 K/mm3 (0.1-1.0); Monocytes % 9.1 % (1.7-9.3); Neutrophils # 4.1 K/mm3 (1.8-7.8); Neutrophils % 51.8 % (37.0-80.0); Platelet Count 250 K/mm3 (142-424); Red Blood Count 5.18 M/mm3 (4.60-6.20); Red Cell Distribution Width 13.3 % (11.5-17.5); White Blood Count 7.8 K/mm3 (4.8-10.8)
[2024-09-10 05:58] LABS: Alanine Aminotransferase 42 U/L (12-78); Albumin Level 4.2 g/dl (3.5-5.0); Albumin/Globulin Ratio 1.8 (1.1-1.8); Alkaline Phosphatase 85 U/L (38-126); Anion Gap 10.7 mEq/L (5-15); Aspartate Amino Transferase 33 U/L (17-59); Bilirubin,Total 2.1 mg/dl (0.2-1.3); Blood Urea Nitrogen 16 mg/dl (9-20); Calcium 9.4 mg/dl (8.4-10.2); Carbon Dioxide 24 mmol/L (22.0-30.0); Chloride 108 mmol/L (98-107); Creatinine Clearance Estimated 128 mL/min (50-200); Estimated Glomerular Filt Rate 96 ml/min (>60); GFR (African American) 116 ML/MIN (>60); Globulin 2.3 g/dL (1.3-3.2); Glucose 142 mg/dl (74-100); Potassium 3.7 mmoL/L (3.5-5.1); Sodium 139 mmol/L (136-145); Total Protein,Serum 6.5 g/dl (6.3-8.2)
--- NOTE | 2024-09-10 06:01 | ED_ITS ---
Discharge Plan Disposition Patient Disposition: Home, Self-Care Condition: Good Prescriptions Prescriptions: No Action levocetirizine 5 mg tablet 5 mg PO DAILY montelukast 10 mg tablet 10 mg PO DAILY Patient Comments: TAKE 1 TABLET BY MOUTH ONCE DAILY latanoprost 0.005 % drops 1 drp OPHTHALMIC DAILY dorzolamide-timolol 22.3-6.8 mg/mL drops 1 drp OPHTHALMIC BID aspirin [Adult Low Dose Aspirin] 81 mg tablet,delayed release (DR/EC) 81 mg PO DAILY Referrals Follow up/Referrals: Leo Elena MD [Staff Physician] - See instructions Sarmad Simmons MD [Primary Care Provider] - See instructions Activity Restrictions/Add. Instructions Additional Instructions/Restrictions: As we discussed, the final read of your ultrasound of your leg did not show a deep vein thrombosis, it did show a superficial clot which does not need to be treated with blood thinners at this time. We did see that you had an arrhythmia on your EKGs. Given that you are not having symptoms at this time and your blood pressure is within normal limits, after our discussion, I have placed a referral to cardiology and you may need to get a Holter monitor. Please return with any new or worsening symptoms. Clinical Impressions Clinical Impression: Thrombophlebitis, Arrhythmia Instructions Patient Instructions: Superficial Thrombophlebitis, DI for Superficial Thrombophlebitis Print Language Print Language: Divehi Discharge ED Provider: Camilo Blancas General Adult HPI <Clay Waldrop MD - Last Filed: 09/10/24 07:19> General Chief complaint: PAIN Stated complaint: pain R leg, history of blood clots Time Seen by Provider: 09/10/24 05:27 Mode of Arrival: Ambulatory Source of Information: Patient Description of Symptoms (Recalled from ER Triage Doc. by RN): Pain in right leg for past 3 days. States it feels similar to previous blood clot History of Present Illness HPI narrative: 69-year-old male with history of previous DVT presents to the ER for complaints of right leg pain from the knee down. Patient reports he had a blood clot many years ago and does reportedly take a blood thinner but his records only demonstrate that he is on aspirin, eyedrops, allergy medications. 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 He believes the right lower extremity is somewhat swollen as well. He reports no known cardiac history, no lung problems, he states he has not been ill recently. He denies headache, dizziness, chest pain, shortness of breath, nausea, vomiting, diarrhea, numbness, tingling, weakness, or any other associated symptoms. Related Data Home Medications ?Medication ?Instructions ?Recorded ?Confirmed levocetirizine 5 mg tablet 5 mg PO DAILY Allergy symptoms 11/26/19 09/10/24 dorzolamide 22.3 mg-timolol 6.8 1 drp ophthalmic (eye) BID eye 09/14/21 09/10/24 mg/mL eye drops latanoprost 0.005 % eye drops 1 drp ophthalmic (eye) DAILY eye 09/14/21 09/10/24 montelukast 10 mg tablet 10 mg PO DAILY Allergy Symptoms 09/14/21 09/10/24 aspirin 81 mg tablet,delayed 81 mg PO DAILY 11/05/23 09/10/24 release (Adult Low Dose Aspirin) Allergies Allergy/AdvReac Type Severity Reaction Status Date / Time tetanus and diphtheria Allergy Intermediate PASSED OUT Verified 07/22/24 13:05 toxoids (TETANUS & DIPHTHERIA TOXOIDS) [facility] <Clay Waldrop MD - Last Filed: 09/10/24 07:19> [facility] Disclaimer: The information contained in this section may have been updated after the patient was seen, as this information can be updated by other users. 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 current occupational exposures/hazards: No Other Medical History Have you received the Flu Vaccine for this season: No Have you received the Pneumonia Vaccine: Yes <Clay Waldrop MD - Last Filed: 09/10/24 07:19> ROS Obtained: Yes Systems reviewed as appropriate & no additional complaints except as documented Per HPI Physical Exam <Clay Waldrop MD - Last Filed: 09/10/24 07:19> General General appearance: alert and in no apparent distress Head Head exam: atraumatic and normocephalic Eye Eye exam: Present PERRL and EOMI ENT ENT exam: Present mucous membranes moist Neck Neck exam: Present normal inspection and full ROM Chest Chest inspection: Present symmetric chest wall rise Respiratory Respiratory exam: Present normal lung sounds bilaterally; Absent respiratory distress, wheezes or stridor Cardiovascular Cardiovascular exam: Present regular rate and normal rhythm Abdominal Exam Abdominal exam: Present soft; Absent distention or tenderness Extremities Exam Extremities exam: Present full ROM, edema (+1 bilateral lower extremity pitting edema) and other (I do not appreciate erythema or significant swelling of the right leg compared to the left. Neurovascularly intact. No evidence of trauma); Absent calf tenderness Neurological Exam Neurological exam: Present alert and oriented X3; Absent motor sensory deficit Psychiatric Psychiatric exam: Present normal affect and normal mood Skin Skin exam: Present warm and dry Medical Decision Making <Clay Waldrop MD - Last Filed: 09/10/24 07:19> Medical Records Medical records reviewed: Yes I reviewed the patient's medical records. Screening: Per USPSTF and CDC recommendations, given the prevalence of disease in our region, it is our hospital?s policy to screen for HIV and viral Hepatitis for all patients aged 18 and over and those with ongoing risk factors. MR Comment: Was seen earlier this year in our ER and prescribed methocarbamol for what was believed to be an intercostal muscle strain. He also follows with podiatry and was seen in July for bilateral foot pain. Patient received new inserts in office and was given education on stretching, arthritis treatment options. Christiano Inquiry Pt receiving controlled substance: No Vital Signs: 09/10/24 05:22 09/10/24 07:01 09/10/24 07:55 Temperature 98.6 F Temperature Source Oral Pulse Rate 41 L 35 L Pulse Rate [Right Brachial] 66 Respiratory Rate 20 Blood Pressure 110/60 Blood Pressure [Right Arm] 136/79 Blood Pressure Mean [Right Arm] 98 Blood Pressure Source Blood Pressure Source [Right Arm] Automatic Cuff Blood Pressure Position Blood Pressure Position [Right Arm] Sitting 02 Sat by Pulse Oximetry 95 97 95 Oxygen Delivery Method Room Air 09/10/24 09:00 09/10/24 10:15 Temperature 98.6 F Temperature Source Oral Pulse Rate 52 L 52 L Pulse Rate [Right Brachial] Respiratory Rate 20 20 Blood Pressure 110/60 110/60 Blood Pressure [Right Arm] Blood Pressure Mean [Right Arm] Blood Pressure Source Automatic Cuff Blood Pressure Source [Right Arm] Blood Pressure Position Sitting Blood Pressure Position [Right Arm] 02 Sat by Pulse Oximetry 94 L Oxygen Delivery Method Room Air Lab Data Lab Results 09/10/24 05:32: WBC 7.8, RBC 5.18, Hgb 15.5, Hct 44.8, MCV 86.5, MCH 29.9, MCHC 34.6, RDW 13.3, Plt Count 250, MPV 9.7, Neut % (Auto) 51.8, Lymph % (Auto) 34.3, [place] % (Auto) 9.1, Eos % (Auto) 3.6, Baso % (Auto) 0.8, Neut # (Auto) 4.1, Lymph # (Auto) 2.7, [place] # (Auto) 0.7, Eos # (Auto) 0.3, Baso # (Auto) 0.1, PT 10.4, INR 0.94, D-Dimer 0.48, Sodium 139, Potassium 3.7, Chloride 108 H, Carbon Dioxide 24, Anion Gap 10.7, BUN 16, Creatinine 0.80, Estimated Creat Clear 128, Estimated GFR 96, Est GFR ( Amer) 116, Glucose 142 H, Calcium 9.4, Total Bilirubin 2.1 H, AST 33, ALT 42, Alkaline Phosphatase 85, Troponin I < 0.01, NT-Pro-B Natriuret Pep 33.9, Total Protein 6.5, Albumin 4.2, Globulin 2.3, Albumin/Globulin Ratio 1.8 09/10/24 08:59: Troponin I < 0.01 09/10/24 05:32 09/10/24 05:32 Orders (Tests/Meds): ED MEDICATIONS Discontinued Medications Generic Name Dose Route Start Last Admin Trade Name Freq PRN Reason Stop Dose Admin Iopamidol 85 ml 09/10/24 08:19 09/10/24 08:20 Iopamidol-370 (76%);100ml Bottle IV 09/10/24 08:20 85 ml ONCE ONE Administration Sodium Chloride 50 ml 09/10/24 08:19 09/10/24 08:20 0.9 % Sodium Chloride 50 Ml Vial IV 09/10/24 08:20 50 ml ONCE ONE Administration Sodium Chloride 10 ml 09/10/24 08:19 09/10/24 08:20 Sodium Chloride 0.9% 10ml Syr (Rad Only) IV 09/10/24 08:20 10 ml ONCE ONE Administration ORDERS Category Date Time Status CTA Chest [CT angio chest PE protocol] Stat Cat Scan 09/10/24 07:42 Completed BNP [NT Pro Brain Natriuretic Pep.] Stat Lab 09/10/24 05:32 Completed CBC w/Auto Diff [Complete Blood Count Auto Diff] Stat Lab 09/10/24 05:32 Completed CMP [Comprehensive Metabolic Panel] Stat Lab 09/10/24 05:32 Completed D-Dimer Stat Lab 09/10/24 05:32 Completed PT INR [Prothrombin Time INR] Stat Lab 09/10/24 05:32 Completed Trop I [Troponin I] Stat Lab 09/10/24 05:32 Completed Troponin I Q3H Lab 09/10/24 08:59 Completed CA venous doppler LE RT Stat Y 09/10/24 07:06 Completed Medical Decision Narrative: In summary, this 69-year-old male with comorbidities as described in the HPI which may not be at goal therapy presents to the emergency department today with concerns of right lower extremity pain and swelling concern for DVT. On initial evaluation patient is hemodynamically stable, afebrile, overall well-appearing, I do not appreciate obvious swelling of the right leg compared to the left, bilateral lower extremities have mild pitting edema, patient has no calf tenderness, redness, or swelling, no tender palpable cord. Differential diagnosis includes but is not limited to DVT, I also considered the possibility of cardiac etiology since patient has peripheral edema, also considered electrolyte abnormality, kidney dysfunction, among other. Based on these concerns, I ordered cardiac workup, serum labs, D-dimer. ECG personally interpreted demonstrates bigeminy, rate 62, normal axis, normal QTc. No STEMI Labs personally reviewed demonstrate normal CBC, PT/INR, and D-dimer. These are all very reassuring findings. CMP nonactionable, patient has chronic mild hyperbilirubinemia, improved from previous. Troponin and BNP pending. Patient's abnormalities on ECG as well as brief episodes of bradycardia on the monitor warrant further cardiac workup. Given this, patient will remain in the ER for a while so formal DVT ultrasound was ordered since vascular lab is now available to perform this. Patient handed off to Dr. Blancas in stable condition pending DVT ultrasound and further cardiac workup. <Camilo Blancas MD - Last Filed: 09/13/24 21:10> Vital Signs: 09/10/24 05:22 09/10/24 07:01 09/10/24 07:55 Temperature 98.6 F Temperature Source Oral Pulse Rate 41 L 35 L Pulse Rate [Right Brachial] 66 Respiratory Rate 20 Blood Pressure 110/60 Blood Pressure [Right Arm] 136/79 Blood Pressure Mean [Right Arm] 98 Blood Pressure Source Blood Pressure Source [Right Arm] Automatic Cuff Blood Pressure Position Blood Pressure Position [Right Arm] Sitting 02 Sat by Pulse Oximetry 95 97 95 Oxygen Delivery Method Room Air 09/10/24 09:00 09/10/24 10:15 Temperature 98.6 F Temperature Source Oral Pulse Rate 52 L 52 L Pulse Rate [Right Brachial] Respiratory Rate 20 20 Blood Pressure 110/60 110/60 Blood Pressure [Right Arm] Blood Pressure Mean [Right Arm] Blood Pressure Source Automatic Cuff Blood Pressure Source [Right Arm] Blood Pressure Position Sitting Blood Pressure Position [Right Arm] 02 Sat by Pulse Oximetry 94 L Oxygen Delivery Method Room Air Lab Data Lab Results 09/10/24 05:32: WBC 7.8, RBC 5.18, Hgb 15.5, Hct 44.8, MCV 86.5, MCH 29.9, MCHC 34.6, RDW 13.3, Plt Count 250, MPV 9.7, Neut % (Auto) 51.8, Lymph % (Auto) 34.3, [place] % (Auto) 9.1, Eos % (Auto) 3.6, Baso % (Auto) 0.8, Neut # (Auto) 4.1, Lymph # (Auto) 2.7, [place] # (Auto) 0.7, Eos # (Auto) 0.3, Baso # (Auto) 0.1, PT 10.4, INR 0.94, D-Dimer 0.48, Sodium 139, Potassium 3.7, Chloride 108 H, Carbon Dioxide 24, Anion Gap 10.7, BUN 16, Creatinine 0.80, Estimated Creat Clear 128, Estimated GFR 96, Est GFR ( Amer) 116, Glucose 142 H, Calcium 9.4, Total Bilirubin 2.1 H, AST 33, ALT 42, Alkaline Phosphatase 85, Troponin I < 0.01, NT-Pro-B Natriuret Pep 33.9, Total Protein 6.5, Albumin 4.2, Globulin 2.3, Albumin/Globulin Ratio 1.8 09/10/24 08:59: Troponin I < 0.01 Orders (Tests/Meds): ED MEDICATIONS Discontinued Medications Generic Name Dose Route Start Last Admin Trade Name Freq PRN Reason Stop Dose Admin Iopamidol 85 ml 09/10/24 08:19 09/10/24 08:20 Iopamidol-370 (76%);100ml Bottle IV 09/10/24 08:20 85 ml ONCE ONE Administration Sodium Chloride 50 ml 09/10/24 08:19 09/10/24 08:20 0.9 % Sodium Chloride 50 Ml Vial IV 09/10/24 08:20 50 ml ONCE ONE Administration Sodium Chloride 10 ml 09/10/24 08:19 09/10/24 08:20 Sodium Chloride 0.9% 10ml Syr (Rad Only) IV 09/10/24 08:20 10 ml ONCE ONE Administration ORDERS Category Date Time Status CTA Chest [CT angio chest PE protocol] Stat Cat Scan 09/10/24 07:42 Completed BNP [NT Pro Brain Natriuretic Pep.] Stat Lab 09/10/24 05:32 Completed CBC w/Auto Diff [Complete Blood Count Auto Diff] Stat Lab 09/10/24 05:32 Completed CMP [Comprehensive Metabolic Panel] Stat Lab 09/10/24 05:32 Completed D-Dimer Stat Lab 09/10/24 05:32 Completed PT INR [Prothrombin Time INR] Stat Lab 09/10/24 05:32 Completed Trop I [Troponin I] Stat Lab 09/10/24 05:32 Completed Troponin I Q3H Lab 09/10/24 08:59 Completed CA venous doppler LE RT Stat Y 09/10/24 07:06 Completed Medical Decision Narrative: In summary, this 69-year-old male with comorbidities as described in the HPI which may not be at goal therapy presents to the emergency department today with concerns of right lower extremity pain and swelling concern for DVT. On initial evaluation patient is hemodynamically stable, afebrile, overall well-appearing, I do not appreciate obvious swelling of the right leg compared to the left, bilateral lower extremities have mild pitting edema, patient has no calf tenderness, redness, or swelling, no tender palpable cord. Differential diagnosis includes but is not limited to DVT, I also considered the possibility of cardiac etiology since patient has peripheral edema, also considered electrolyte abnormality, kidney dysfunction, among other. Based on these concerns, I ordered cardiac workup, serum labs, D-dimer. ECG personally interpreted demonstrates bigeminy, rate 62, normal axis, normal QTc. No STEMI Labs personally reviewed demonstrate normal CBC, PT/INR, and D-dimer. These are all very reassuring findings. CMP nonactionable, patient has chronic mild hyperbilirubinemia, improved from previous. Troponin and BNP pending. Patient's abnormalities on ECG as well as brief episodes of bradycardia on the monitor warrant further cardiac workup. Given this, patient will remain in the ER for a while so formal DVT ultrasound was ordered since vascular lab is now available to perform this. Patient handed off to Dr. Blancas in stable condition pending DVT ultrasound and further cardiac workup. Camilo Blancas MD ROBERTO CARLOS: I assumed care of this patient from the previous emergency medicine physician. CT PE independently visualized and interpreted by me significant for no pulmonary embolism. DVT study with final read revealing no DVT however superficial thrombophlebitis. Conservative measures will be trialed at this time. Patient will follow-up with PCP reviewed. Return precautions given. Critical Care <Clay Waldrop MD - Last Filed: 09/10/24 07:19> Critical Care Time Critical Care Time: No
[2024-09-10 06:02] LABS: INR 0.94 (0.9-1.1); Prothrombin Time 10.4 seconds (9.2-12.1)
[2024-09-10 06:20] LABS: D-Dimer 0.48 ug/mL (0.0-0.5)
--- NOTE | 2024-09-10 06:21 | ECG_ITS ---
APPROVED REPORT Exam: Resting ECG HR:62 bpm ECG Measurements Heart Rate 62 AXES MD 192 P 44 QRSd 106 QRS 35 QT 397 T 28 QTc 403 Conclusion SINUS RHYTHM WITH FREQUENT SUPRAVENTRICULAR PREMATURE COMPLEXES IN A BIGEMINAL PATTERN NONSPECIFIC ST & T-WAVE ABNORMALITY ABNORMAL RHYTHM ECG Electronically signed by : ENOCH SALVADOR, 09/11/2024 10:42:58
[2024-09-10 07:01] VITALS: BP 110/60; PULSE 41; O2SAT 97
[2024-09-10 07:04] LABS: NT Pro Brain Natriuretic Pep. 33.9 pg/mL (0-125)
--- NOTE | 2024-09-10 07:06 | CA_ITS ---
FINAL REPORT TECHNIQUE: Multiple transverse and longitudinal images were performed of the right femoral-popliteal deep venous system with augmentation and compression maneuvers. CLINICAL HISTORY: Previous DVT, on ASA therapy, Right knee pain COMPARISON: None FINDINGS: Right lower extremity duplex ultrasound demonstrates normal flow in the deep venous system. There is no abnormal echogenicity to suggest thrombus. There is normal compression and augmentation. However, there is tibial venous thrombosis. IMPRESSION: No evidence of right DVT. Tibial venous thrombosis. Reviewed, Interpreted and Dictated by Mk Merritt MD Transcribed by Jeannette Garay Authenticated and [facility]
[2024-09-10 07:20] LABS: Troponin I < 0.01 ng/ml (0.00-0.034)
--- NOTE | 2024-09-10 07:42 | CT_ITS ---
FINAL REPORT TECHNIQUE: The patient was injected with IV contrast. Axial images were obtained through the chest in a PE protocol. 3-D reconstruction images were also performed. Individualized dose reduction techniques using automated exposure control or adjustment of the MA and/or KV according to patient's size were employed. CLINICAL HISTORY: new DVT, new AV block COMPARISON: 07/07/2024 FINDINGS: Mediastinal vasculature is adequately opacified. No pulmonary artery filling defects are identified to suggest PE. There is no aortic dissection. There is no axillary adenopathy. There is no hilar or mediastinal adenopathy. The heart size is normal. There is no pericardial or pleural effusion. There is dependent edema at the lung bases. Limited images of the upper abdomen demonstrate mild fatty infiltration of the liver. There is a tiny nonobstructing stone in the left collecting system measuring 2 mm, well-seen on image 145 of series 5. IMPRESSION: No pulmonary embolus or dissection. Reviewed, Interpreted and Dictated by Mk Merritt MD Transcribed by Jeannette Garay Authenticated and . [facility]
[2024-09-10 07:55] VITALS: PULSE 35; O2SAT 95
--- NOTE | 2024-09-10 07:59 | ECG_ITS ---
APPROVED REPORT Exam: Resting ECG HR:64 bpm ECG Measurements Heart Rate 64 AXES WV 176 P -10 QRSd 109 QRS 22 QT 418 T 15 QTc 427 Conclusion SINUS RHYTHM WITH FREQUENT SUPRAVENTRICULAR PREMATURE COMPLEXES IN A BIGEMINAL PATTERN NONSPECIFIC T-WAVE ABNORMALITY ABNORMAL RHYTHM ECG Electronically signed by : ENOCH SALVADOR, 09/11/2024 10:23:49
--- NOTE | 2024-09-10 08:01 | PC.NURSE ---
pt to ct
--- NOTE | 2024-09-10 08:09 | PC.NURSE ---
PT RETURNED FROM CT
[2024-09-10] MEDS: 0.9 % SODIUM CHLORIDE 50 ML VIAL IV (08:20)
[2024-09-10] MEDS: SODIUM CHLORIDE 0.9% 10ML SYR (RAD ONLY) 10 ML IV (08:20)
[2024-09-10] MEDS: IOPAMIDOL-370 (76%);100ML BOTTLE 85 ML IV (08:20)
[2024-09-10 09:00] VITALS: BP 110/60; PULSE 52; RESP 20; O2SAT 94
--- NOTE | 2024-09-10 09:00 | PC.NURSE ---
REPEAT TROP SENT, LAB NOTIFIED
[2024-09-10 09:29] LABS: Troponin I < 0.01 ng/ml (0.00-0.034)
[2024-09-10 10:15] VITALS: BP 110/60; PULSE 52; RESP 20; TEMP 37; O2SAT 94
== END 2024-09-10 10:24 | disposition home or self-care (01) ==
PROVIDERS: Emergency Medicine; Emergency Provider Emergency Medicine; PCP Internal Medicine Adolescent Medicine
DX: I80.231 Phlebitis and thrombophlebitis of right tibial vein (principal); I49.9 Cardiac arrhythmia, unspecified; M79.661 Pain in right lower leg; Z86.718 Personal history of other venous thrombosis and embolism
CPT/HCPCS: 71275; 80053; 83880; 84484; 85025; 85378; 85610; 93005; 93971; 99285; Q9967

== ENCOUNTER 2024-09-15 11:29 | Outpatient (CLI) | payer MEDICARE, SELFPAY ==
[2024-09-15 11:46] LABS: Basophils % 0.5 % (0.1-2.0); Eosinophils # 0.2 K/mm3 (0.0-0.4); Eosinophils % 2.6 % (0.1-12.0); Hematocrit 46.8 % (42.0-52.0); Hemoglobin 16.3 g/dL (14.1-18.0); Lymphocytes # 1.8 K/mm3 (0.7-4.5); Lymphocytes % 24.1 % (10-50); Mean Corpuscular HGB Conc 34.8 g/dL (31.8-35.4); Mean Platelet Volume 9.6 fl (7.4-10.4); Monocytes # 0.5 K/mm3 (0.1-1.0); Monocytes % 6.9 % (1.7-9.3); Neutrophils % 65.5 % (37.0-80.0); Platelet Count 240 K/mm3 (142-424); Red Blood Count 5.44 M/mm3 (4.60-6.20); Red Cell Distribution Width 13.5 % (11.5-17.5); White Blood Count 7.6 K/mm3 (4.8-10.8)
[2024-09-15 12:16] LABS: Albumin Level 4.7 g/dl (3.5-5.0); Chloride 106 mmol/L (98-107); Potassium 4.4 mmoL/L (3.5-5.1); Sodium 137 mmol/L (136-145)
[2024-09-15 12:18] LABS: Blood Urea Nitrogen 16 mg/dl (9-20); Estimated Glomerular Filt Rate 111 ml/min (>60); GFR (African American) 135 ML/MIN (>60)
[2024-09-15 12:19] LABS: Alanine Aminotransferase 43 U/L (12-78); Alkaline Phosphatase 87 U/L (38-126); Anion Gap 10.4 mEq/L (5-15); Aspartate Amino Transferase 36 U/L (17-59); Bilirubin,Indirect 1.4 mg/dL (0.0-0.9); Bilirubin,Total 1.4 mg/dl (0.2-1.3); Bilirubin,Unconjugated 1.4 mg/dL (0.0-1.1); Calcium 10.4 mg/dl (8.4-10.2); Carbon Dioxide 25 mmol/L (22.0-30.0); Chol/HDL Ratio 3.9 (1-3.5); Cholesterol 166 mg/dl (140-200); Glucose 159 mg/dl (74-100); HDL Cholesterol 43 mg/dl (40-60); Magnesium 1.8 mg/dl (1.6-2.3); Total Protein,Serum 6.9 g/dl (6.3-8.2); Triglycerides 115 mg/dl (30-150); VLDL Cholesterol 23 mg/dL (0-40)
[2024-09-15 12:30] LABS: Direct LDL Cholesterol 101.59 mg/dL (100-129)
[2024-09-15 12:39] LABS: Free T4 (Free Thyroxine) 1.18 ng/dl (0.78-2.19)
[2024-09-15 12:43] LABS: Hemoglobin A1C 6.1 % (4.0-6.0)
[2024-09-15 12:51] LABS: Thyroid Stimulating Hormone 1.81 uIU/mL (0.465-4.68)
== END 2024-09-15 23:59 | disposition home or self-care (01) ==
LOC: LAB 11:30
PROVIDERS: PCP Internal Medicine Adolescent Medicine; Visit Provider Nurse Practitioner
DX: I80.9 Phlebitis and thrombophlebitis of unspecified site (principal); I49.9 Cardiac arrhythmia, unspecified; R94.31 Abnormal electrocardiogram [ECG] [EKG]; R06.00 Dyspnea, unspecified; E11.9 Type 2 diabetes mellitus without complications; R53.83 Other fatigue
CPT/HCPCS: 36415; 80048; 80061; 80076; 83036; 83735; 84439; 84443; 85025; 93225; 93227

== ENCOUNTER 2024-09-17 11:08 | Outpatient (CLI) | payer MEDICARE, SELFPAY | END 2024-09-17 23:59 | disposition home or self-care (01) | PROVIDERS: PCP Internal Medicine Adolescent Medicine; Visit Provider Nurse Practitioner | DX: R94.31 Abnormal electrocardiogram [ECG] [EKG] (principal); I49.9 Cardiac arrhythmia, unspecified; R06.00 Dyspnea, unspecified | CPT/HCPCS: 93270 ==

== ENCOUNTER 2024-09-21 08:22 | Outpatient (CLI) | payer MEDICARE, SELFPAY ==
--- NOTE | 2024-09-21 | CA_ITS ---
APPROVED REPORT EXAM: Comprehensive 2D, Doppler, and color-flow Echocardiogram Stripper Preliminary: Lainey Gonzalez CRT Ht: 6 ft 1 in Wt: 296lbs BSA: 2.54 BP: 170/86 mmHg Indications: Abnormal ECG, Diabetes, Hypertension/HDD 2D Dimensions LA Volume 56.80 mL LA Volume Index 21.80 mL/m2 (M/F) 16-34 M-Mode Dimensions RVDd 3.90 cm (0.9-2.6) LA Diam 3.95 cm (1.9-4.0) LVDd 4.59 cm (3.5-5.7) LVDs 3.30 cm (3.5-5.7) IVSd 1.89 cm (0.6-1.1) PWd 0.84 cm (0.6-1.1) EF (Teich) 54.40% FS 28.10% EDV (Teich) 96.80 mL TAPSE 2.02 (<1.7) ESV (Teich) 44.10 mL LV Diastology E Decel Time 150 (160-240 msec) E/A Ratio 2.61 MED A' 10.20 cm/s LAT A' 11.20 cm/s Aortic Valve AI PHT 542.00 ms AO Peak GR. 5.60 mmHg Mitral Valve MV E Max Christian. 69.0 (40-130 cm/s) MV A Velocity 26.0 (40-130 cm/s) E/A Ratio 2.61 MV PHT 44.0 ms Pulmonary Valve PV Peak Velocity 76.0 (50-150 cm/s) Tricuspid Valve TR P. Velocity 274.00 cm/s RAP Estimate 10.00 mmHg RVSP 40.10 mmHg Left Ventricle The left ventricle is normal size. The left ventricular systolic function is normal. The left ventricular ejection fraction is within the normal range. There is increased LV wall thickness. There is normal LV segmental wall motion. The left ventricular diastolic function is normal. LVEF is 60%. Right Ventricle The right ventricle is mildly dilated. The right ventricular systolic function is normal. Atria The left atrium size is normal. The right atrium size is normal. There is no Doppler evidence of interatrial shunt. Aortic Valve The aortic valve is mildly thickened. There is no aortic valvular stenosis. Mild aortic regurgitation. Mitral Valve The mitral valve is normal in structure. No evidence of mitral valve stenosis. Trace mitral regurgitation. Tricuspid Valve Tricuspid valve is grossly normal in structure and function. Trace tricuspid regurgitation. There is insufficient TR jet to estimate RVSP. Pulmonic Valve The pulmonary valve is normal in structure. Trace pulmonic regurgitation. Great Vessels The aortic root is normal in size. IVC is normal in size and collapses >50% with inspiration. Pericardium There is no pericardial effusion. Other Information Study Quality: Fair Conclusion Normal biventricular systolic function. Mild RV dilation. Mild AI. Electronically signed by : Oralia Rome MD 09/22/2024 09:58:48
== END 2024-09-21 23:59 | disposition home or self-care (01) ==
LOC: RT 08:23
PROVIDERS: PCP Internal Medicine Adolescent Medicine; Visit Provider Nurse Practitioner
DX: I51.7 Cardiomegaly (principal); I35.1 Nonrheumatic aortic (valve) insufficiency; R94.31 Abnormal electrocardiogram [ECG] [EKG]; R06.00 Dyspnea, unspecified
CPT/HCPCS: 93306

== ENCOUNTER 2024-09-22 10:26 | Outpatient (CLI) | payer MEDICARE, SELFPAY ==
--- NOTE | 2024-09-22 10:45 | CA_ITS ---
FINAL REPORT CLINICAL HISTORY: PAIN RLE X SEVERAL WEEKS,HX OF DVT,PT ON ASA COMPARISON: None FINDINGS: DUPLEX VENOUS SONOGRAPHY OF THE RIGHT LOWER EXTREMITY Multiple transverse and longitudinal scans were performed of the femoropopliteal deep venous system, with augmentation and compression maneuvers. HISTORY: Pain and swelling FINDINGS: Normal phasic flow was noted in the visualized deep venous system. There is thrombus noted in the proximal right peroneal vein. The popliteal vein through the common femoral vein demonstrates normal compression and augmentation of the venous structures. No abnormal venous collaterals are seen. IMPRESSION: No evidence of deep venous thrombosis of the left lower extremity. Thrombus noted in the proximal right peroneal vein. Reviewed, Interpreted and Dictated by Sherry Jama MD Transcribed by Beckie Oneal Authenticated and [facility]
== END 2024-09-22 23:59 | disposition home or self-care (01) ==
LOC: RT 10:27
PROVIDERS: PCP Internal Medicine Adolescent Medicine; Visit Provider Nurse Practitioner
DX: I82.451 Acute embolism and thrombosis of right peroneal vein (principal); M79.604 Pain in right leg
CPT/HCPCS: 93971

== ENCOUNTER 2024-09-29 07:19 | Outpatient (CLI) | payer MEDICARE, SELFPAY ==
[2024-09-29 07:40] VITALS: BMI 25.7
[2024-09-29 07:53] VITALS: BP 147/73; PULSE 52; RESP 18; TEMP 36.8; O2SAT 97
[2024-09-29 08:10] VITALS: BP 138/82; PULSE 54; O2SAT 96
[2024-09-29] MEDS: 0.9 % SODIUM CHLORIDE 50 ML VIAL IV (08:14)
[2024-09-29] MEDS: IOPAMIDOL-370 (76%);100ML BOTTLE 95 ML IV (08:14)
[2024-09-29] MEDS: SODIUM CHLORIDE 0.9% 10ML SYR (RAD ONLY) 10 ML IV (08:14)
[2024-09-29 08:15] VITALS: BP 141/93; PULSE 45; RESP 17; O2SAT 97
[2024-09-29 08:20] VITALS: BP 129/67; PULSE 50; O2SAT 97
--- NOTE | 2024-09-29 08:30 | CT_ITS ---
APPROVED REPORT Stack Matcher: CLINICAL INDICATION Chest Pain TECHNIQUE Image Acquisition: A 128 slice MDCT scanner (Qwilta View) was used for data acquisition. A noncontrast coronary calcium scan was performed. A CT attenuation threshold of 130 Hounsfield units (HU) was used for the detection of calcium in contiguous voxels of 1 sq mm in area to be counted as individual lesions. Bolus tracking in the ascending aorta with a threshold of 180 HU was performed. Immediately afterwards, ECG synchronized cardiac CT was then performed from the cardiac base to apex using retrospective gating with ECG tube current modulation. A total of 85 mL of Isovue 370 mg/mL contrast medium was administered at 5 mL/sec followed by a saline flush using a biphasic injection protocol. A tube voltage of 120 KVp was used. The patient received no medications prior to the cardiac CT. The average heart rate at the time of acquisition was 60 bpm and regular. Image Reconstruction Transaxial images were reconstructed at 0.67 mm slide thickness. Data was reviewed interactively on an advanced workstation capable of 2 and 3-dimensional displays in all conventional reconstruction formats, including multiplanar reformations, maximum intensity projections, curved multiplanar reformations, and volume rendered reconstructions. When applicable, selected routine images describing the relevant coronary anatomy and pathology were saved and sent to PACS. Complications None Technical Quality Overall image quality was fair, in the setting of significant motion and blurring artifact. Coronary artery opacification was adequate. Total DLP (Dose-Length Product) is 2330.7 mGy-cm. The reported value represents the total of one or more individual components during the CT acquisition of this date and at this time, and as such, the same value may appear in more than one CT report depending on the interpreting/reporting physicians. COMPARISON None FINDINGS CT Coronary Calcium Scoring LMA (Left Main Artery) = 0 LAD (Left Anterior Descending) = 16 LCX (Left Coronary Circumflex) = 0 RCA (Right Coronary Artery) = 0 Total Calcium Score = 16 using the AJ-130 method. The observed calcium score of 16 is at 22nd percentile for subjects of the same age, sex, and race/ethnicity. The interpretation of the calcium heart score is based on the following continuum*: 0 = no calcified plaque detected (risk of coronary artery disease is very low ??? less than 5%) 1-10 = calcium detected in extremely minimal levels (risk of coronary diseases is still low ??? less than 10%) 11-100 = mild levels of plaque detected with certainty (mild or minimal narrowing of heart arteries is likely) 101-400 = definite,at least moderate levels of plaque detected (relatively high risk of a heart attack within 3-5 years) >401-999 = extensive levels of plaque detected (high risk of heart attack, high levels of vascular disease are present, high likelihood of at least one significant coronary narrowing) *The calcium heart score quantifies the burden of coronary calcification/plaque in the coronary arteries. The calcium heart score is not able to evaluate the presence or burden of non-calcified (i.e. soft) plaque. There is no identifiable calcification in the aortic valve, mitral annulus or mitral valve, pericardium, or myocardium. Coronary CT Angiography The coronary arterial system is right dominant. Quantitative Stenosis Grading: Left Main (LM): The left main originates normally from the left sinus of Valsalva. The LM bifurcates into the left anterior descending artery and left circumflex artery. The LM is patent with no evidence of atherosclerosis. Left Anterior Descending (LAD) and Diagonal Branches: The LAD gives off 2 diagonal branch(es). There is a calcified plaque in the proximal LAD segment with up to 25-49% luminal stenosis. Distal to that in the mid LAD segment, there is noncalcified plaque with up to 70-90% luminal stenosis. There is no evidence of LAD-myocardial bridge. Left Circumflex (LCX) and Obtuse Marginals (OM): The LCX gives off 1 Obtuse Marginal (OM) branch(es). The LCX and its branches are patent with no evidence of atherosclerosis. Right Coronary Artery (RCA): The RCA originates normally from the right sinus of Valsalva. The RCA gives off a posterior descending artery (PDA) and posterolateral (PL) branches. The proximal RCA segment is difficult to visualize due to significant motion. Grossly, the RCA and its branches are patent with no evidence of atherosclerosis. Non-Coronary Cardiac Findings: Analysis of the left ventricular (LV) structure and function was performed after 3-D reconstruction of the LV from axial images, with user-corrected automatic contouring for assessment of LV volumes and user-defined reconstruction from oblique planes for measurement of 3-D cardiac structure and function. -The left ventricle systolic function is normal. -There is no left atrial appendage filling defect. Two right pulmonary veins and two left pulmonary veins drain normally into the left atrium. -No pericardial thickening or calcification. -Central and branch pulmonary arteries in the [id number] are unremarkable. -Thoracic aorta within the visualized thoracic aortic-branches in the [id number] is unremarkable. Extracardiac Structures No significant extra-cardiac findings. Note, however, that this study is focused on the cardiac findings. IMPRESSION -Presence of coronary calcification with an Agatston score = 16 using the AJ-130 method. -The observed calcium score of 16 is at 22nd percentile for subjects of the same age, sex, and race/ethnicity. -There is a mild calcified plaque in the proximal LAD, and a more significant noncalcified plaque in the mid LAD (70-90% luminal stenosis) with possible evidence of significant flow-limiting atherosclerosis of the coronary arteries. -CAD-RADS 4A. Management recommendations per ACC/AHA guidelines*, as clinically appropriate. *Recommendations: CAD RADS 0: Reassurance. Consider non-atherosclerotic causes of chest pain. CAD RADS 1: Consider non-atherosclerotic causes of chest pain. Consider preventive therapy and risk factor modification. CAD RADS 2: Consider non-atherosclerotic causes of chest pain. Consider preventive therapy and risk factor modification, particularly for patients with nonobstructive plaque in multiple segments. CAD RADS 3: Consider further functional testing. Consider symptom-guided anti-ischemic and preventive pharmacotherapy as well as risk factor modification per published guideline statements. CAD RADS 4A: Consider further functional testing or invasive coronary angiography with revascularization per published guideline statements. Consider symptom-guided anti-ischemic and preventive pharmacotherapy as well as risk factor modification per published guideline statements. CAD RADS 4B: Invasive coronary angiography recommended with revascularization per published guideline statements. Consider symptom-guided anti-ischemic and preventive pharmacotherapy as well as risk factor modification per published guideline statements. CAD RADS 5: Consider invasive angiography and/or viability assessment with revascularization per published guideline statements. Consider symptom-guided anti-ischemic and preventive pharmacotherapy as well as risk factor modification per published guideline statements. CRITICAL RESULT None COMMUNICATION Per this written report The coronary and cardiac findings of this CCTA were reviewed, reported, and signed by Srini Rome MD (Dish Washer) Conclusion Electronically signed by : Oralia Rome MD 10/01/2024 15:41:46
== END 2024-09-29 08:44 | disposition home or self-care (01) ==
PROVIDERS: PCP Internal Medicine Adolescent Medicine; Visit Provider Nurse Practitioner
DX: R94.31 Abnormal electrocardiogram [ECG] [EKG] (principal); R42 Dizziness and giddiness; R07.89 Other chest pain
CPT/HCPCS: 75574; Q9967

== ENCOUNTER 2024-10-19 10:11 | Outpatient (CLI) | payer MEDICARE, SELFPAY ==
--- NOTE | 2024-10-19 10:16 | XR_ITS ---
FINAL REPORT CLINICAL HISTORY: Pain FINDINGS: AP, lateral and oblique views of the right hand were obtained. There is no prior exam for comparison. There is a small calcification adjacent to the base of the fifth proximal phalanx favored to be chronic. There is no acute fracture or dislocation. There is mild multijoint degenerative disease. There is no acute soft tissue abnormality. 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 Reviewed, Interpreted and Dictated by Sherry Jama MD Transcribed by Yulia Dow Authenticated and [facility] [place] [place]
== END 2024-10-19 23:59 | disposition home or self-care (01) ==
LOC: RAD 10:12
PROVIDERS: PCP Internal Medicine Adolescent Medicine; Visit Provider Internal Medicine Adolescent Medicine
DX: M79.641 Pain in right hand (principal)
CPT/HCPCS: 73130

== ENCOUNTER 2024-10-22 07:06 | Day surgery (SDC) | payer MEDICARE, SELFPAY ==
[2024-10-22] VITALS (14 sets, daily range): BP systolic 87–114; BP diastolic 44–85; PULSE 62–97; RESP 14–20; O2SAT 92–96; BMI 37.7
--- NOTE | 2024-10-22 07:09 | IR_ITS ---
APPROVED REPORT Patient Location: Outpatient [employer] Labourer: Enmanuel Monique, RT (R) PROCEDURES Left heart catheterization Left ventriculogram Selective coronary angiogram Drug-eluting stent deployment to the proximal to mid LAD INDICATION Coronary artery disease, Abnormal CCTA, Angina pectoris Informed consent was obtained prior to the procedure. COMPLICATIONS NONE Estimated Blood Loss: LESS THAN 10 ML TECHNIQUE One percent lidocaine used to anesthetize the right anterior aspect of the wrist. The right radial artery was accessed via the Seldinger technique. A 6 Belgian sheath was placed in the right radial artery. 2.5 mg of Verapamil, 800 mcg of nitroglycerin, 1mg Lidocaine and 5000 U Heparin were given through the arterial sheath. The 6 Belgian JL 3 guide catheter was also used to perform left heart catheterization, left ventriculogram and selective coronary angiogram. At the end the diagnostic angiogram therapeutic heparin was administered giving a therapeutic ACT and the guide catheter was placed in left main artery followed by Choice PT extra-support wire placed distally. A 4 mm x 26 mm Leeds frontier stent was deployed at 14 patrick reducing the stenosis. A 4.5 x 12 mm noncompliant balloon was deployed at 24 patrick in the proximal and midportion of post dilate. Still this did not give adequate stent expansion and apposition to the vessel wall. A 5 mm x 12 mm noncompliant balloon was deployed at 20 patrick and then 24 patrick in the proximal and midportion of further post dilate. CLAUDIA-3 flow was present before and after the procedure. At the end the procedure the apparatus was removed the sheath was removed and hemostasis was achieved using TR banding patient was transferred to the postop putting in stable condition ANGIOGRAPHIC RESULTS The left main artery Normal The left anterior descending artery Is a large-caliber vessel with a proximal 40 to 50% stenosis followed by concentric 70% stenosis The circumflex artery Large dominant with diffuse 10% luminal regularities The right coronary artery Nondominant yet still large with 10% luminal regularities The MARTINES ventriculogram reveals Normal 65% The left ventricular end-diastolic pressure 10 mmHg IMPRESSION Severe proximal to mid LAD disease as described above Successful stenting of the proximal to mid LAD severe disease reduced to 0% with 1 drug-eluting stent Normal ejection fraction Normal LVEDP PLAN 1. Plavix aspirin and Xarelto for 30 days then discontinue aspirin and continue Plavix and Xarelto 2. LDL less than 55 to be achieved with high intensity statin 3. Add bisoprolol 5 mg daily and ramipril 5 mg daily 4. Cardiac rehabilitation 5. Avoidance of tobacco products Electronically signed by : Leo Elena MD 10/22/2024 10:16:25
[2024-10-22 07:42] LABS: Basophils # 0.1 K/mm3 (0-0.2); Basophils % 0.6 % (0.1-2.0); Eosinophils # 0.3 Kmm3 (0.0-0.4); Eosinophils % 3.2 % (0.1-12.0); Hematocrit 48.1 % (42.0-52.0); Hemoglobin 17.1 g/dL (14.1-18.0); Lymphocytes # 2.3 K/mm3 (0.7-4.5); Mean Corpuscular HGB Conc 35.6 g/dL (31.8-35.4); Mean Corpuscular Hemoglobin 30.4 pg (27.0-31.2); Mean Corpuscular Volume 85.6 fl (80-94); Mean Platelet Volume 9.8 fl (7.4-10.4); Monocytes # 0.7 K/mm3 (0.1-1.0); Monocytes % 8.9 % (1.7-9.3); Neutrophils # 4.5 K/mm3 (1.8-7.8); Nucleated Red Blood Cells # 0 10^3/uL; Nucleated Red Blood Cells % 0 %; Platelet Count 235 K/mm3 (142-424); Red Blood Count 5.62 M/mm3 (4.60-6.20); Red Cell Distribution Width 13.4 % (11.5-17.5); Red Cell Distribution Width-SD 41.4 fL; White Blood Count 7.8 K/mm3 (4.8-10.8)
[2024-10-22 07:47] LABS: Chloride 109 mmol/L (98-107)
[2024-10-22 07:48] LABS: Potassium 3.8 mmoL/L (3.5-5.1); Sodium 140 mmol/L (136-145)
[2024-10-22 07:51] LABS: Anion Gap 12.8 mEq/L (5-15); Blood Urea Nitrogen 16 mg/dl (9-20); Calcium 9.2 mg/dl (8.4-10.2); Carbon Dioxide 22 mmol/L (22.0-30.0); Creatinine Clearance Estimated 126 mL/min (50-200); Estimated Glomerular Filt Rate 83 ml/min (>60); GFR (African American) 101 ML/MIN (>60); Glucose 127 mg/dl (74-100)
[2024-10-22] MEDS: diphenhydrAMINE 50MG/ML VIAL 50 MG IV (09:05)
[2024-10-22] MEDS: LIDOCAINE 1% 10ML MDV 10 ML IJ (09:06)
[2024-10-22] MEDS: HEPARIN 1,000 UNITS/500ML NS (CATH LAB) 3000 UNIT IV (09:06)
[2024-10-22] MEDS: VERAPAMIL 2.5MG/ML 2ML VIAL 2.5 MG IV (09:06)
[2024-10-22] MEDS: MIDAZOLAM HCL 1MG/ML 5ML VIAL 1 MG IV (09:07)
[2024-10-22] MEDS: 0.9 % SODIUM CHLORIDE 500 ML 25 ML IV (09:07)
[2024-10-22] MEDS: NITROGLYCERIN 800MCG/8ML SYR (CATH LAB) 800 MCG IA (09:07)
[2024-10-22] MEDS: FENTANYL 100MCG/2ML VIAL 50 MCG IV (09:08)
[2024-10-22] MEDS: HEPARIN 1,000 UNITS/ML 10ML VIAL (CATH LAB) 5000 UNIT IV (09:47)
[2024-10-22] MEDS: CLOPIDOGREL 300MG TABLET 600 MG PO (10:07)
[2024-10-22] MEDS: HYDROCODONE/APAP 5/325 MG TABLET 2 TAB PO (12:27)
[2024-10-22] MEDS: IOPAMIDOL-370 (76%);100ML BOTTLE 130 ML IV (12:53)
[2024-10-22 12:57] LABS: CATHL Activated Clotting Time 331 SEC (74-125)
== END 2024-10-22 13:22 | disposition home or self-care (01) ==
PROVIDERS: PCP Internal Medicine Adolescent Medicine; Visit Provider Internal Medicine
DX: I25.118 Atherosclerotic heart disease of native coronary artery with other forms of angina pectoris (principal); I77.1 Stricture of artery; R93.1 Abnormal findings on diagnostic imaging of heart and coronary circulation; R53.83 Other fatigue; Z88.7 Allergy status to serum and vaccine; Z79.01 Long term (current) use of anticoagulants; Z79.899 Other long term (current) drug therapy; M79.604 Pain in right leg; E11.9 Type 2 diabetes mellitus without complications; R94.31 Abnormal electrocardiogram [ECG] [EKG]; R06.02 Shortness of breath
CPT/HCPCS: 80048; 85025; 85347; 92928; 93458; 99152; 99153; C1725; C1760; C1769; C1874; C9600; J1200; J1644; J3010; Q9967

== ENCOUNTER 2024-10-29 10:29 | Outpatient (CLI) | payer MEDICARE, SELFPAY ==
[2024-10-29 11:07] LABS: Basophils # 0.1 K/mm3 (0-0.2); Basophils % 0.7 % (0.1-2.0); Eosinophils # 0.2 Kmm3 (0.0-0.4); Eosinophils % 2.7 % (0.1-12.0); Hematocrit 50.8 % (42.0-52.0); Hemoglobin 16.8 g/dL (14.1-18.0); Lymphocytes # 1.8 K/mm3 (0.7-4.5); Mean Corpuscular HGB Conc 33.1 g/dL (31.8-35.4); Mean Corpuscular Hemoglobin 29.5 pg (27.0-31.2); Mean Corpuscular Volume 89.3 fl (80-94); Mean Platelet Volume 9.9 fl (7.4-10.4); Monocytes # 0.6 K/mm3 (0.1-1.0); Monocytes % 8.3 % (1.7-9.3); Neutrophils # 4.4 K/mm3 (1.8-7.8); Nucleated Red Blood Cells # 0 10^3/uL; Nucleated Red Blood Cells % 0 %; Platelet Count 260 K/mm3 (142-424); Red Blood Count 5.69 M/mm3 (4.60-6.20); Red Cell Distribution Width 13.8 % (11.5-17.5); Red Cell Distribution Width-SD 45.1 fL
[2024-10-29 11:31] LABS: Anion Gap 7.5 mEq/L (5-15); Blood Urea Nitrogen 23 mg/dl (9-20); Calcium 10.3 mg/dl (8.4-10.2); Carbon Dioxide 27 mmol/L (22.0-30.0); Chloride 108 mmol/L (98-107); Estimated Glomerular Filt Rate 83 ml/min (>60); GFR (African American) 101 ML/MIN (>60); Glucose 135 mg/dl (74-100); Potassium 4.5 mmoL/L (3.5-5.1); Sodium 138 mmol/L (136-145)
== END 2024-10-29 23:59 | disposition home or self-care (01) ==
LOC: LAB 10:29
PROVIDERS: PCP Internal Medicine Adolescent Medicine; Visit Provider Internal Medicine
DX: Z95.5 Presence of coronary angioplasty implant and graft (principal); Z79.01 Long term (current) use of anticoagulants
CPT/HCPCS: 36415; 80048; 85025

== ENCOUNTER 2024-12-15 10:49 | Outpatient (CLI) | payer MEDICARE, SELFPAY ==
--- OUTSIDE RECORDS SUMMARY | 2024-12-15 10:57 | XMS_ITS | Encounter Summary ---
Author Organization Healthcare Address [address] [place] [address] Care Team Providers Care Air Crew Member Name Role Phone Sarmad Simmons MD Primary Care Provider [phone] Encounter Details Date Type Department Care Team (Late Contact Info) Description 08/12/2023 Orders Only External Location [address] [place] [address] Sarmad Simmons MD [address] [place] [address] Social History Tobacco Use Types Packs/Day Years Used Date Smoking Tobacco: Never Assessed Sex and Gender Information Value Date Recorded Sex Assigned at Not on file Legal Sex Male 6:12 PM EDT Gender Identity Not on file Sexual Orientation Not on file documented as of this encounter Plan of Treatment Upcoming Encounters Date Type Department Care Team (Late st Contact Info) Description 02/04/2025 11:30 AM EDT Appointment [facility] [address] [place] [phone] documented as of this encounter Procedures Procedure Name Priority Date/Time Associated Diagnosis Comments CT OUTSIDE IMAGES 08/12/2023 11:31 AM EST documented in this encounter Results * CT OUTSIDE IMAGES (08/12/2023 11:31 AM EST) Anatomical Region Laterality Modality Computed Tomogra phy 08/12/2023 11:3 1 AM EST us Sarmad Simmons MD IMG CT PROCEDURES Final Resu lt documented in this encounter Visit Diagnoses Not on filedocumented in this encounter Care Teams Air Crew Member Relationship Specialty Start Date End Date Sarmad Simmons MD [address] [place], [place] [address] PCP - General 11/11/20 documented as of this encounter
--- OUTSIDE RECORDS SUMMARY | 2024-12-15 10:57 | XMS_ITS | Encounter Summary ---
Author Organization [facility] Address [address] [id number] Care Team Providers Care Recreation Coordinator Name Role Phone Sarmad Simmons MD Primary Care Provider [phone] Reason for Referral * Consultation (Routine) - Closed Specialty Diagnoses / Procedures Referred By Contthu t Referred To Contact Urology Diagnoses Kidney stone Sarmad Simmons MD [address] [facility] [address] [place] [address] Phone: tel: fax: [facility] [address] [place] [address] Phone: tel: fax: Referral ID Status Reason Start Date Expiration Date V isits Requested Visits Authorized [id number] Closed Specialty Services Required 09/17/2023 03/18/2025 1 1 Encounter Details Date Type Department Care Team (Late st Contact Info) Description 09/17/2023 [facility] [address] [place] [address] Sarmad Simmons MD [address] [facility] [address] [place] [address] Kidney stone (Primary Dx) Social History Tobacco Use Types Packs/Day Years [...] EDT Appointment [facility] [address] [place] [address] Scheduled Referrals Name Type Priority Associated Diagnoses Order Schedule Ambulatory referral to Urology Outpatient Referral Routine Kidney stone Expected: 09/17/2023, Expires: 03/19/2025 documented as of this encounter Visit Diagnoses Diagnosis Kidney stone- Primary Calculus of kidney documented in this encounter Care Teams Recreation Coordinator Relationship Specialty Start Date End Date Sarmad Simmons MD [address] [place] [address] PCP - General 11/11/20 documented as of this encounter
--- OUTSIDE RECORDS SUMMARY | 2024-12-15 10:58 | XMS_ITS | Clinical Summary ---
Author Organization [facility] Address [address] [place] [address] Care Team Providers Care Crab Backer Name Role Phone Sarmad Simmons MD Primary Care Provider [phone] Allergies Active Allergy Reactions Criticality Noted Date Comments Tetanus Toxoid Other - please docum ent in the comment field Low 12/06/2008 Medications dorzolamide-roxanne olol (Cosopt) 2-0.5 % ophthalmic solution Administer 2 drops into both eyes every 12 (twelve) hours. Active latanoprost (Xalatan) 0.005 % ophthalmic solution Administer 1 drop into both eyes every night. Active tadalafil (Cialis) 5 MG tablet Take 1 tablet (5 mg) by mouth 1 (one) time each day. Active Active Problems No known active problems Social History Tobacco Use Types Packs/Day Years Used Date Smoking Tobacco: Never Smokeless Tobacco: Never Tobacco Cessation:Counseling Given: Not Answered Alcohol Use Standard Drinks/Week Comments Never 0 (1 standard drink = 0.6 oz pur e alcohol) PHQ-2 Answer Date Recorded Patient Health Questionnaire-2 Score 0 05/04/2024 Sex and Gender Information Value Date Recorded Sex Assigned at Not on file Legal Sex Male 6:12 PM EDT Gender Identity Not on file Sexual Orientation Not on file Last Filed Vital Signs Vital Sign Reading Time Taken Comments Blood Pressure 148/92 05/20/2024 10:43 AM EST Pulse 78 05/20/2024 10:43 AM EST Temperature 36.1 C (97 F) 10/08/2023 12:00 PM EDT Respiratory Rate 18 10/08/2023 12:05 PM EDT Oxygen Saturation 95% 10/08/2023 12:05 PM EDT Inhaled Oxygen Concentration - - Weight 132 kg (292 lb) 05/20/2024 10:43 AM EST Height 185.4 cm (6' 1 ) 05/20/2024 10:43 AM EST Body Mass Index 38.52 05/20/2024 10:43 AM EST Plan of Treatment Upcoming Encounters Date Type Department Care Team (Late st Contact Info) Description 02/04/2025 11:30 AM EDT Appointment [facility] [address] [place] [address] Health Maintenance Due Date Last Done Comments [facility]-Hepatitis C Screening 1955 [facility]-Medicare Annual Wellness (AWV) 1955 [facility]-Infant/Child/Adol SDOH Screenings 1955 [facility]- SDOH Screenings 1972 [facility]-Adult SDOH Screenings 1972 [facility]-DTaP,Tdap,and Td Vaccines (1 - Tdap) 1973 CT Colonography 1999 Colonoscopy 1999 FIT-DNA 1999 FIT 1999 FOBT 1999 Sigmoidoscopy 1999 [facility]-Colorectal Cancer Screening 1999 [facility]-Pneumococcal Vaccine: 50+ Years (1 of 1 - PCV) 2004 [facility]-Zoster Vaccines (1 of 2) 2004 MBX-BIMNY-50 Vaccine ( - 2023- season) 2024 05/06/2024, 04/19/2023, 04/11/2022, Additional history exists [facility]-Depression Screening 05/04/2025 05/04/2024 [facility]-RSV Vaccine: 60+ Years or (1 - 1-dose 75+ series) 2029 [facility]-Hepatitis A Vaccines Aged Out 11/07/2018, 04/02 No longer eligible based on patient's age to complete this topic [facility]-Influenza Vaccine Completed 04/20/2024 , 04/17/2023, 04/09/2022, Additional history exists [facility]-Obesity Intervention Completed 024, 05/04/2024, 02/10/2024, Additional history exists HPV Vaccines Aged Out No longer eligi ble based on patient's age to complete this topic [facility]-HIB Vaccines Aged Out No longer e ligible based on patient's age to complete this topic [facility]-IPV Vaccines Aged Out No longer e ligible based on patient's age to complete this topic [facility]-Rotavirus Vaccines Aged Out No lo nger eligible based on patient's age to complete this topic Medical Devices Implanted Type Area Outpatient Dietitian Device Identifier Shelf Expiration Date Model / Serial / Lot Stent Ureteral Double Pigtail Pos 6fr 26cm - [id number] Implanted:Qty: 1 on 10/08/2023 by Jimmie Pierce MD at [facility] Left: [id number] 04/15/2025 [id number] / [id number] Insurance [place] [id number] [employer] MEDICARE Care Teams Crab Backer Relationship Specialty Start Date End Date Sarmad Simmons MD [address] [place] [address] PCP - General 11/11/20
[2024-12-15 11:22] LABS: Basophils % 0.5 % (0.1-2.0); Eosinophils # 0.3 Kmm3 (0.0-0.4); Eosinophils % 3.6 % (0.1-12.0); Hematocrit 52.1 % (42.0-52.0); Hemoglobin 17.5 g/dL (14.1-18.0); Immature Granulocytes # 0.02 10^3uL; Immature Granulocytes % 0.3 %; Lymphocytes # 2.3 K/mm3 (0.7-4.5); Lymphocytes % 29.5 % (10-50); Mean Corpuscular HGB Conc 33.6 g/dL (31.8-35.4); Mean Corpuscular Hemoglobin 29.9 pg (27.0-31.2); Mean Corpuscular Volume 89.1 fl (80-94); Mean Platelet Volume 10.2 fl (7.4-10.4); Monocytes # 0.6 K/mm3 (0.1-1.0); Monocytes % 7.1 % (1.7-9.3); Neutrophils # 4.6 K/mm3 (1.8-7.8); Nucleated Red Blood Cells # 0 10^3/uL; Nucleated Red Blood Cells % 0 %; Platelet Count 153 K/mm3 (142-424); Red Blood Count 5.85 M/mm3 (4.60-6.20); Red Cell Distribution Width 13.4 % (11.5-17.5); Red Cell Distribution Width-SD 43.9 fL; White Blood Count 7.9 K/mm3 (4.8-10.8)
[2024-12-15 11:47] LABS: Albumin Level 4.4 g/dl (3.5-5.0); Chloride 109 mmol/L (98-107); Potassium 4.4 mmoL/L (3.5-5.1); Sodium 140 mmol/L (136-145)
[2024-12-15 11:50] LABS: Alanine Aminotransferase 33 U/L (12-78); Alkaline Phosphatase 70 U/L (38-126); Anion Gap 11.4 mEq/L (5-15); Aspartate Amino Transferase 29 U/L (17-59); Bilirubin,Direct 0.3 mg/dl (0.0-0.4); Bilirubin,Indirect 2.8 mg/dL (0.0-0.9); Bilirubin,Total 3.1 mg/dl (0.2-1.3); Bilirubin,Unconjugated 2.8 mg/dL (0.0-1.1); Blood Urea Nitrogen 18 mg/dl (9-20); Carbon Dioxide 24 mmol/L (22.0-30.0); Cholesterol 102 mg/dl (140-200); Estimated Glomerular Filt Rate 83 ml/min (>60); GFR (African American) 101 ML/MIN (>60); Glucose 126 mg/dl (74-100); Total Protein,Serum 6.6 g/dl (6.3-8.2); Triglycerides 112 mg/dl (30-150); VLDL Cholesterol 22 mg/dL (0-40)
[2024-12-15 11:51] LABS: Chol/HDL Ratio 2.8 (1-3.5); HDL Cholesterol 37 mg/dl (40-60)
[2024-12-15 12:07] LABS: Free T4 (Free Thyroxine) 1.06 ng/dl (0.78-2.19)
[2024-12-15 12:21] LABS: Thyroid Stimulating Hormone 1.14 uIU/mL (0.465-4.68)
== END 2024-12-15 23:59 | disposition home or self-care (01) ==
LOC: LAB 10:50
PROVIDERS: PCP Internal Medicine Adolescent Medicine; Visit Provider Nurse Practitioner
DX: I25.10 Atherosclerotic heart disease of native coronary artery without angina pectoris (principal); E13.9 Other specified diabetes mellitus without complications; R53.83 Other fatigue; R94.31 Abnormal electrocardiogram [ECG] [EKG]; Z72.820 Sleep deprivation
CPT/HCPCS: 36415; 80048; 80061; 80076; 83735; 84439; 84443; 85025

== ENCOUNTER 2024-12-18 09:17 | Outpatient (RCR) | payer MEDICARE, SELFPAY | END 2025-01-29 08:00 | disposition home or self-care (01) | LOC: CR 09:17 | PROVIDERS: Visit Provider Internal Medicine | DX: Z48.812 Encounter for surgical aftercare following surgery on the circulatory system (principal); Z95.5 Presence of coronary angioplasty implant and graft | CPT/HCPCS: 93797; 93798 ==

== ENCOUNTER 2025-06-21 08:56 | Outpatient (CLI) | payer MEDICARE, SELFPAY ==
--- OUTSIDE RECORDS SUMMARY | 2025-04-06 06:15 | XMS_ITS ---
Author Organization [facility] Address [address] [place] [id number] Care Team Providers Care Side Panel Hanger Name Role Phone Pranav Connolly Primary Care Provider [phone] Allergies No Known Allergies Results Component Value Reference Range Notes CBC Venipuncture (in house) Reviewed date:04/06/2025 10:13:04 PM Interpretation: Performing Lab: Notes/Report: wbc 8.4 3.5 - 10 lymph 21.1% 15 - 50 mid 5.2% 2 - 15 gran 73.7% 35 - 80 rbc 5.89 3.5 - 5.5 hgb 17.4 11.5 - 16.5 hct 52.4 35 - 55 mcv 89.0 75 - 100 mch 29.5 25 - 35 mchc 33.2 31 - 38 platlet 213 100 - 400 P-Vitamin B12 Reviewed date:04/07/2025 10:01:59 AM Interpretation:326 Performing Lab: Notes/Report: Test performed by [facility] [address] [place], [place] [address] [place] , [place] [address] Jonatan Rand MD, Decal Maker CLIA: [id number] Vitamin B12 945 585-4107 pg/mL P-Comprehensive Metabolic Pa elissa (CMP) Reviewed date:04/07/2025 10:01:59 AM Interpretation:cl 110, gluc 123, bili 2.2 Performing Lab: Notes/Report: Test performed by [facility] [address] [place] [address] Cass Herrera, [place] [address] Jonatan Rand MD, Decal Maker CLIA: [id number] Sodium 142 135-145 mmol/L Potassium 4.4 3.5-5.3 mmol/L Chloride 110 97-108 mmol/L CO2 21 20-32 mmol/L Glucose 123 65-99 mg/dL BUN 23 8-23 mg/dL Creatinine 0.82 0.70-1.30 mg/dL Calcium 10.3 8.6-10.4 mg/dL eGFR by Creatinine 94 >59 mL/min/1.73m2 Protein 6.3 6.0-8.3 g/dL Albumin 4.3 3.5-5.3 g/dL Alkaline Phosphatase 68 40-129 IU/L ALT (SGPT) 22 <5-55 IU/L AST (SGOT) 15 <5-46 IU/L Bilirubin, Total 2.2 <0.2-1.2 mg/dL A/G Ratio 2.1 1.1-2.5 P-Lipid Panel Reviewed date:04/07/2025 10:01:59 AM Interpretation:hdl 38 Performing Lab: Notes/Report: Test performed by [facility] [address] [place] [address] , [address], [place] [address] Jonatan Rand MD, Decal Maker CLIA: [id number] Lipid Panel Footnote See Below *Based on optimal reference values. Please refer to the DOS for additional information regarding diagnostic lipid reference ranges, patient management based on the recently updated lipid guidelines ([employer] Task Force on Clinical Practice Guidelines (2018), and pediatric diagnostic lipid reference values (<18 years old). Total Cholesterol 93 <200 mg/dL Triglycerides 101 <150 mg/dL HDL Cholesterol 38 >40 mg/dL Total Cholesterol / HDL Ratio* 2.45 <4.99 Rati o Non-HDL Cholesterol 55 <130 mg/dL LDL Cholesterol (Calculation) 35 <100 mg/dL LDL / HDL Ratio* 0.92 <2.49 Ratio LDL Cholesterol Patient History Test Date: 07/18/2022 LDL Results: 86 Units: mg/dL % Change: - Test Date: 04/06/2025 LDL Results: 35 Units: mg/dL % Change: -59% P-Magnesium Reviewed date:04/07/2025 10:01:59 AM Interpretation:Normal Performing Lab: Notes/Report: Test performed by [facility] [address] , [place] [address] Jonatan Rand MD, Decal Maker CLIA: [id number] Magnesium 2.0 1.6-2.4 mg/dL P-TSH reflex to FT4 Reviewed date:04/07/2025 10:01:59 AM Interpretation:Normal Performing Lab: Notes/Report: Test performed by [facility] [address] [place] [address] , [place] [address] Jonatan Rand MD, Decal Maker CLIA: [id number] TSH reflex to FT4 1.43 0.43-5.25 mU/L P-Vitamin D 25-Hydroxy Reviewed date:04/07/2025 10:01:59 AM Interpretation:15.5 Performing Lab: Notes/Report: Test performed by [facility] [address] , [place] [id number] Jonatan Rand MD, Decal Maker CLIA: [id number] Vitamin D 25-Hydroxy 15.5 30.0-100.0 ng/mL Interpretation of Vitamin D 25 [place]: < 20 ng/mL - Deficiency 20 - 29 ng/mL - Insufficiency 30 - 100 ng/mL - Sufficiency > 100 ng/mL - Super-therapeutic- toxicity may occur above this level. Clinical correlation required. REASON FOR VISIT establish care Medications Medication SIG (Take, Route, Frequency, Duration) Notes Start Date End Date Status Jardiance 10 MG 1 tablet Orally Once a day Active Montelukast Sodium 10 MG 1 tablet Orally Once a day Active Xarelto 20 MG 1 tablet with food Orally Once a day Active Rosuvastatin Calcium 40 MG 1 tablet Oral ly Once a day Active Levocetirizine Dihydrochloride 5 MG 1 tablet in the evening Orally Once a day Active Bisoprolol Fumarate 5 MG 1 tablet Orally Once a day Active Latanoprost 0.005 % 1 drop into affected eye in the evening Ophthalmic Once a day Active Clopidogrel Bisulfate 75 MG 1 tablet Ora lly Once a day Active Dorzolamide HCl-Timolol Mal 2-0.5 % 1 drop into affected eye Ophthalmic Twice a day Active Ramipril 5 MG 1 capsule Orally Onc e a day Active Problems Problem Type SNOMED Code ICD Code Onset Dates Problem Status W/U Status Risk Notes Problem Atherosclerotic heart disease of [place] coronary artery without angina pectoris (469322355609281) Coronary artery disease involving [place] coronary artery of [place] heart without angina pectoris (I25.10) Active confirmed Problem Adjustment disorder (40608223) Adjustment disorder, unspecified type (F43.20) Active confirmed Problem Insomnia (257492465) Other insomnia (G47.09) Active confirmed Problem Mixed hyperlipidemia (392787832) Mixed hyperlipidemia (E78.2) Active confirmed Vital Signs Blood pressure systolic 94 mm Hg 04/06/20 25 Blood pressure diastolic 68 mm Hg 025 Heart Rate 87 /min 04/06/2025 Height 73 in 04/06/2025 Weight 278.2 lbs 04/06/2025 BMI 36.7 kg/m2 04/06/2025 Encounters Encounter Location Date Provider Diagnosis [facility] [address] [place] [phone] 04/06/2025 Pranav Connolly Coronary artery dise ase involving [place] coronary artery of [place] heart without angina pectoris I25.10 ; Other fatigue R53.83 ; Adjustment disorder, unspecified type F43.20 ; Other insomnia G47.09 ; Mixed hyperlipidemia E78.2 and History of DVT (deep vein thrombosis) Z86.718 Assessments Encounter Date Diagnosis (ICD Code) Assessment Notes Treatment Notes Treatment Clinical Notes Section Notes 04/06/2025 Coronary artery disease involving [place] coronary artery of [place] heart without angina pectoris (ICD-10 - I25.10) 04/06/2025 Other fatigue (ICD-10 - R53.83) 04/06/2025 Adjustment disorder, unspecified type (ICD-10 - F43.20) 04/06/2025 Other insomnia (ICD-10 - G47.09) 04/06/2025 Mixed hyperlipidemia (ICD-10 - E78.2) 04/06/2025 History of DVT (deep vein thrombosis) (ICD-10 - Z86.718) Plan Of Treatment Medication Medication Name Sig Start Date Stop Date Notes Jardiance 10 MG 1 tablet Orally Once a day Xarelto 20 MG 1 tablet with food O rally Once a day Rosuvastatin Calcium 40 MG 1 tablet Orally Once a day Bisoprolol Fumarate 5 MG 1 tablet Orally Once a day Clopidogrel Bisulfate 75 MG 1 tablet Orally Once a day Ramipril 5 MG 1 capsule Orally Once a day Next Appt Details Follow Up: via phone to repo rt test results, Reason: Progress Notes * Dario LUO RDOB: [birth year] (70 yo M)Acc No.[id number]:04/06/2025 Progress Notes Patient: Dario RAMIREZ Provider: Mary Connolly M.D. :1955 A ge:70 Y S ex:Male Date:04/06/2025 Address:[address] [place], [place] [phone] Subjective: * Chief Complaints: * 1 . Establish care. * HPI: H PI: 70 year old male presents with c/o Patient is here today for?Pt here to establish care, pt was previously seen by Dr. Simmons. He has been having issues with fatigue and irritability. 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 He fells like his blood pressure being low may be causing some of his fatigue. * ROS: P SYCHOLOGY: Sleep disturbances y es, w akes up frequently at night to check on his . * Medical History: K idney stones, Hyperlipidemia, Allergic rhinitis, DVT, right leg x2, Atrial Arrhythmia, Benign Prostatic Hyperplasia, Overactive Bladder, Coronary Artery Disease, Glaucoma. * Surgical History: H eart Cath, Stents 09/2024. * Hospitalization/Major Diagno stic Procedure: D enies Past Hospitalization. * Family History: F ather: , diagnosed with Cancer. M other: . S iblings: diagnosed with Diabetes. 2 brother(s) . 1 son(s) , 1 daughter(s) . . * Social History: C URRENT TOBACCO USE: No . C affeine: no. Alcohol: no. * Medications: T aking Latanoprost 0.005 % Solution 1 drop into affected eye in the evening Ophthalmic Once a day , Taking Dorzolamide HCl-Timolol Mal 2-0.5 % Solution 1 drop into affected eye Ophthalmic Twice a day , Taking Xarelto 20 MG Tablet 1 tablet with food Orally Once a day , Taking Jardiance 10 MG Tablet 1 tablet Orally Once a day , Taking Bisoprolol Fumarate 5 MG Tablet 1 tablet Orally Once a day , Taking Ramipril 5 MG Capsule 1 capsule Orally Once a day , Taking Levocetirizine Dihydrochloride 5 MG Tablet 1 tablet in the evening Orally Once a day , Taking Clopidogrel Bisulfate 75 MG Tablet 1 tablet Orally Once a day , Taking Rosuvastatin Calcium 40 MG Tablet 1 tablet Orally Once a day , Taking Montelukast Sodium 10 MG Tablet 1 tablet Orally Once a day , Medication List reviewed and reconciled with the patient * Allergies: N .K.D.A. Objective: * Vitals: W t: 278.2, Temp: 97.8, BP: 94/68, HR: 87, Nurse: onofre, Ht: 73, BMI:36.7. * Examination: G eneral Examination: General Appearance: N AD. H EENT: u nremarkable.?Oral cavity: n o lesions, mucosa moist and WNL, no erythema. H eart: R SR. L ungs: c lear to auscultation. N eurologic Exam: I ntact, gait normal. S kin: n ormal, no rash. P eripheral pulses: n ormal (2+) bilaterally. E xtremities: n o leg edema. Assessment: * Assessment: 1. C oronary artery disease involving [place] coronary artery of [place] heart without angina pectoris - I25.10 (Primary) 2 . O ther fatigue - R53.83 3 . A djustment disorder, unspecified type - F43.20 4 . O ther insomnia - G47.09 & #160; 5 . M ixed hyperlipidemia - E78.2 6 . H istory of DVT (deep vein thrombosis) - Z86.718 Plan: * Treatment: 2. O ther fatigue L AB: P-Vitamin B12 (Collection Date & Time - 04/06/2025 10:43 AM) 3 26 Value Reference Range V itamin B12 604 648-4229 - pg/mL * Alonso Quinonesia 04/07/2025 10:0 1:50 AM EDT > See phone encounter ?LAB: P-Comprehensive Metabolic Panel (CMP) (Collection Date & Time - 04/06/2025 10:43 AM)?cl 110, gluc 123, bili 2.2* Value Reference Range A /G Ratio 2.1 1.1-2.5 - * A lbumin 4.3 3.5-5.3 - g/dL * A lkaline Phosphatase 68 40-129 - IU/L * A LT (SGPT) 22 <5-55 - IU/L * A ST (SGOT) 15 <5-46 - IU/L * B ilirubin, Total 2.2 H <0.2-1.2 - mg/dL * B UN 23 8-23 - mg/dL * C alcium 10.3 8.6-10.4 - mg/dL * C hloride 110 H 97-108 - mmol/L * C O2 21 20-32 - mmol/L * C reatinine 0.82 0.70-1.30 - mg/dL * G lucose 123 H 65-99 - mg/dL * P otassium 4.4 3.5-5.3 - mmol/L * S odium 142 135-145 - mmol/L * P rotein 6.3 6.0-8.3 - g/dL * e GFR by Creatinine 94 >59 - mL/min/1.73m2 * Lucinda Quinones 04/07/2025 10:0 1:50 AM EDT > See phone encounter ?LAB: P-Magnesium (Collection Date & Time - 04/06/2025 10:43 AM)?Normal* Value Reference Range M agnesium 2.0 1.6-2.4 - mg/dL * Lucinda Quinones 04/07/2025 10:0 1:50 AM EDT > See phone encounter ?LAB: P-TSH reflex to FT4 (Collection Date & Time - 04/06/2025 10:43 AM)? Normal* Value Reference Range T SH reflex to FT4 1.43 0.43-5.25 - mU/L * Lucinda Quinones 04/07/2025 10:0 1:50 AM EDT > See phone encounter ?LAB: P-Vitamin D 25-Hydroxy (Collection Date & Time - 04/06/2025 10:43 AM)? 15.5* Value Reference Range V itamin D 25-Hydroxy 15.5 L 30.0-100.0 - ng/mL * Lucinda Quinones 04/07/2025 10:0 1:50 AM EDT > See phone encounter ?LAB: CBC Venipuncture (in house) (Collection Date & Time - 04/06/2025)* Value Reference Range w bc 8.4 3.5 - 10 * l ymph 21.1% 15 - 50 * m id 5.2% 2 - 15 * g ran 73.7% 35 - 80 * r bc 5.89 3.5 - 5.5 * h gb 17.4 11.5 - 16.5 * h ct 52.4 35 - 55 * m cv 89.0 75 - 100 * m ch 29.5 25 - 35 * m chc 33.2 31 - 38 * p latlet 213 100 - 400 * Valery Sanders 04/06/2025 12:12: 11 PM EDT >Pranav Connolly 04/06/2025 10:13:00 PM EDT > 3.?Mixed hyperlipidemia? Continue Rosuvastatin Calcium Tablet, 40 MG, 1 tablet, Orally, Once a day.?LAB: P-Lipid Panel (Collection Date & Time - 04/06/2025 10:43 AM)?hdl 38* Value Reference Range C holesterol / HDL Ratio 2.45 <4.99 - Ratio * C holesterol 93 <200 - mg/dL * H DL Cholesterol 38 L >40 - mg/dL * L DL Cholesterol (Calculation) 35 <100 - mg/d L * L DL/HDL Ratio 0.92 <2.49 - Ratio * N on-HDL Cholesterol 55 <130 - mg/dL * T riglycerides 101 <150 - mg/dL * L ipid Panel Footnote See Below - * Lucinda Quinones 04/07/2025 10:0 1:50 AM EDT > See phone encounter 4.?History of DVT (deep vein thrombosis)? Continue Xarelto Tablet, 20 MG, 1 tablet with food, Orally, Once a day.?? * Procedure Codes: G 2211 Complex e/[place], [address] CBC WITH AUTO DIFF, 1036F TOBACCO NON-USER, G8783 BP SCR PRFRM RCMDD DEFIND SCR INTVL, 3074F SYST BP LT 130 MM HG, 3078F DIAST BP < 80 MM HG * Follow Up: v ia phone to report test results * Images: Billing Information: * Visit Code: 99855 Office Visit, New Pt., Level 4. * Procedure Codes: G2211 Complex e/[place]. [address] CBC WITH AUTO DIFF. 1036F TOBACCO NON-USER. G8783 BP SCR PRFRM RCMDD DEFIND SCR INTVL. 3074F SYST BP LT 130 MM HG. 3078F DIAST BP < 80 MM HG. * Electronic signature of Trina Connolly MD on 06/21/2025 at 09:00 AM EST Sign off status: Pending * Provider: Mary Connolly M.D. Date: Generated for Eneida ovalle/Bebeto/Nae on: 08/22/2024 09:00 AM EST History and Physical Notes * HPI (History of Present Illness) Category Sub-Category Detail Notes Category Not es HPI Patient is here today for Pt her e to establish care, pt was previously seen by Dr. Simmons. He has been having issues with fatigue and irritability. 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 He fells like his blood pressure being low may be causing some of his fatigue Examination Category Sub-Category Detail Notes Category Not es General Examination HEENT: unremarkable Heart: RSR Lungs: clear to auscultatio n Extremities: no leg edema General Appearance: NAD Skin: normal, no rash Neurologic Exam: Intact, gait normal Oral cavity: no lesions, mucosa m oist and WNL, no erythema Peripheral pulses: normal (2+) bilatera lly
--- OUTSIDE RECORDS SUMMARY | 2025-06-02 04:30 | XMS_ITS ---
[facility] Address [address] [place] [phone] Care Team Providers Care Bioinformatics Software Engineer Name Role Phone Mohsen Pranav Primary Care Provider SridharCatarina yoo Unavailable [phone] Allergies No Known Allergies REASON FOR VISIT back pain Medications Medication SIG (Take, Route, Frequency, Duration) Notes Start Date End Date Status Montelukast Sodium 10 MG 1 tablet Orally Once a day; Duration: 90 days Active Vitamin D 1.25 MG (85827 UT) 1 capsule Orally weekly 04/07/2025 Active Rosuvastatin Calcium 40 MG 1 tablet Oral ly Once a day Active Clopidogrel Bisulfate 75 MG 1 tablet Ora lly Once a day Active Ramipril 5 MG 1 capsule Orally Onc e a day Active Latanoprost 0.005 % 1 drop into affected eye in the evening Ophthalmic Once a day Active Bisoprolol Fumarate 5 MG 1 tablet Orally Once a day Active Jardiance 10 MG 1 tablet Orally Once a day Active Xarelto 20 MG 1 tablet with food Orally Once a day Active Dorzolamide HCl-Timolol Mal 2-0.5 % 1 drop into affected eye Ophthalmic Twice a day Active Levocetirizine Dihydrochloride 5 MG 1 tablet in the evening Orally Once a day; Duration: 90 days Active Vitamin B12 1000 MCG 1 tablet Orally Onc e a day; Duration: 30 days 06/02/2025 Active Vital Signs Blood pressure systolic 110 mm Hg 06/02/20 25 Blood pressure diastolic 60 mm Hg 025 Heart Rate 91 /min 06/02/2025 Height 73 in 06/02/2025 Weight 280 lbs 06/02/2025 BMI 36.94 kg/m2 06/02/2025 Encounters Encounter Location Date Provider Diagnosis [facility] [address] [place] [phone] 06/02/2025 Catarina Wild B12 deficiency E53.8 ; Abdominal wall hernia K43.9 and Generalized abdominal pain R10.84 Assessments Encounter Date Diagnosis (ICD Code) Assessment Notes Treatment Notes Treatment Clinical Notes Section Notes 06/02/2025 B12 deficiency (ICD-10 - E53.8) Will recheck in 2 months. 06/02/2025 Abdominal wall hernia (ICD-10 - K43.9) 06/02/2025 Generalized abdominal pain (ICD-10 - R10.84) Will get a CT. Plan Of Treatment Medication Medication Name Sig Start Date Stop Date Notes Vitamin B12 1000 MCG 1 tablet Orally Onc e a day; Duration: 30 days 06/02/2025 Treatment Notes Assessment Notes B12 deficiency Will recheck in 2 mo nths. Generalized abdominal pain Will get a CT . Pending Test Test Name Order Date CT Scan : Abd & Pelvis with and without IV contrast only 06/02/2025 Next Appt Details Follow Up: via phone to repo rt test results, Reason: Progress Notes * FACUNDO Dario RDOB: 4 (70 yo M)Acc No.[id number]:06/02/2025 Progress Notes Patient: Dario RAMIREZ Provider: JAROCHO Aviles :1955 A ge:70 Y S ex:Male Date:06/02/2025 Address:[address] [place], [place] [phone] Pcp:Pranav Connolly Subjective: * Chief Complaints: * 1 . Back pain. * HPI: Avril shaikh back: 70 year old male presents with c/o Low Back Pain P t states he is h aving low back pain for years now and he also hurts in his abdomen. He has a few abominal hernias but is worried about pancreatic cancer. . * ROS: D ERMATOLOGY: no R jose. n o H sharifa. G ASTROENTEROLOGY: no N ausea. n o V omiting. n o D iarrhea.? U ROLOGY: no D ifficulty urinating. n o B lood in urine. * Medical History: K idney stones, Hyperlipidemia, Allergic rhinitis, DVT, right leg x2, Atrial Arrhythmia, Benign Prostatic Hyperplasia, Overactive Bladder, Coronary Artery Disease, Glaucoma. * Surgical History: H eart Cath, Stents 09/2024. * Family History: F ather: , diagnosed [...] capsule Orally Once a day , Taking Clopidogrel Bisulfate 75 MG Tablet 1 tablet Orally Once a day , Taking Rosuvastatin Calcium 40 MG Tablet 1 tablet Orally Once a day , Taking Vitamin D 1.25 MG (96831 UT) Capsule 1 capsule Orally weekly , Taking Montelukast Sodium 10 MG Tablet 1 tablet Orally Once a day , Taking Levocetirizine Dihydrochloride 5 MG Tablet 1 tablet in the evening Orally Once a day , Medication List reviewed and reconciled with the patient * Allergies: N .K.D.A. Objective: * Vitals: W t: 280, Temp: 97.6, BP: 110/60, HR: 91, Nurse: pe, Ht: 73, BMI:36.94. * Examination: G eneral Examination: General Appearance: N AD. H EENT: u nremarkable.?Oral cavity: n o lesions, mucosa moist and WNL, no erythema. N carina: s upple, no lymphadenopathy. C hest: n ormal shape and expansion. H eart: R SR. L ungs: c lear to auscultation. A bdomen: b owel sounds present, soft, distended, there is an umbilical hernia that is not tender. N eurologic Exam: I ntact, gait normal. S kin: n ormal, no rash. P eripheral pulses: n ormal (2+) bilaterally. E xtremities: n o leg edema. Assessment: * Assessment: 1. B 12 deficiency - E53.8 (Primary) 2 . A bdominal wall hernia - K43.9? 3. G eneralized abdominal pain - R10.84 Plan: * Treatment: 2. A bdominal wall hernia I maging: CT Scan : Abd & Pelvis with and without IV contrast only 3.?Generalized abdominal pain?Imaging: CT Scan : Abd & Pelvis with and without IV contrast only* Vilma Jo 06/02/2025 01:3 7:19 PM EST > faxed to [facility] Scheduling Notes: Will get a CT.?? * Procedure Codes: G 2211 Complex e/m visit add on, G8783 BP SCR PRFRM RCMDD DEFIND SCR INTVL, G8752 MOST RECENT SYSTOLIC BP < 140MM HG, G8754 MOST RECENT DIASTOLIC BP < 90MM HG, 3074F SYST BP LT 130 MM HG, 3078F DIAST BP < 80 MM HG * Follow Up: v ia phone to report test results * Images: Billing Information: * Visit Code: 33751 Office Visit, Est Pt., Level 4. * Procedure Codes: G2211 Complex e/m visit add on. G8783 BP SCR PRFRM RCMDD DEFIND SCR INTVL. G8752 MOST RECENT SYSTOLIC BP < 140MM HG. G8754 MOST RECENT DIASTOLIC BP < 90MM HG. 3074F SYST BP LT 130 MM HG. 3078F DIAST BP < 80 MM HG. * Electronic signature of JAROCHO Saucedo on 06/21/2025 at 09:00 AM EST Sign off status: Pending * Provider: JAROCHO Aviles Date: 08/03/2024 Generated for Eneida ovalle/Bebeto/eTransmitting on: 08/22/2024 09:00 AM EST History and Physical Notes * HPI (History of Present Illness) Category Sub-Category Detail Notes Category Not es Lower back Low Back Pain Pt states he is having low back pain for years now and he also hurts in his abdomen. He has a few abominal hernias but is worried about pancreatic cancer. Examination Category Sub-Category Detail Notes Category Not es General Examination HEENT: unremarkable Heart: RSR Lungs: clear to auscultatio n Abdomen: bowel sounds present , soft, distended, there is an umbilical hernia that is not tender Extremities: no leg edema General Appearance: NAD Skin: normal, no rash Neurologic Exam: Intact, gait normal Neck: supple, no lymphaden opathy Oral cavity: no lesions, mucosa m oist and WNL, no erythema Peripheral pulses: normal (2+) bilatera lly Chest: normal shape and exp ansion
--- OUTSIDE RECORDS SUMMARY | 2025-06-10 08:45 | XMS_ITS ---
Author Organization [facility] Address [address] [place] [id number] Care Team Providers Care Life Sciences Instructor Name Role Phone Pranav Connolly Primary Care Provider [phone] Catarina Wild Unavailable [phone] Allergies No Known Allergies Results Component Value Reference Range Notes Urinalysis - Inhouse Reviewed date:06/10/2025 04:51:13 PM Interpretation: Performing Lab: Notes/Report: Color/Clarity yellow/clear Leuk neg Nitrite neg Urobili 16 Protein neg pH 5.5 Blood trace-intact Sp. Gr. 1.020 Ketone neg Bili neg Gluc 2+ P-Culture, Urine Reviewed date:06/17/2025 09:09:50 AM Interpretation:No Growth Performing Lab: Notes/Report: Test performed by [employer] [address] [place] [address] , [address], [place] [address] Javan Prater MD, PhD, [facility], Lumber Chain Offbearer CLIA: [id number] Specimen Source Urine - Void Culture, Urine See Below Final Report : No growth REASON FOR VISIT nose bleed Medications Medication SIG (Take, Route, Frequency, Duration) Notes Start Date End Date Status Dorzolamide HCl-Timolol Mal 2-0.5 % 1 drop into affected eye Ophthalmic Twice a day Active Latanoprost 0.005 % 1 drop into affected eye in the evening Ophthalmic Once a day Active Vitamin B12 1000 MCG 1 tablet Orally Onc e a day; Duration: 30 days 06/02/2025 Active Levocetirizine Dihydrochloride 5 MG 1 tablet in the evening Orally Once a day; Duration: 90 days Active Montelukast Sodium 10 MG 1 tablet Orally Once a day; Duration: 90 days Active Rosuvastatin Calcium 40 MG 1 tablet Oral ly Once a day Active Clopidogrel Bisulfate 75 MG 1 tablet Ora lly Once a day Active Ramipril 5 MG 1 capsule Orally Onc e a day Active Bisoprolol Fumarate 5 MG 1 tablet Orally Once a day Active Vitamin D 1.25 MG (39135 UT) 1 capsule Orally weekly 04/07/2025 Active Jardiance 10 MG 1 tablet Orally Once a day Active Xarelto 20 MG 1 tablet with food Orally Once a day Active Vital Signs Blood pressure systolic 110 mm Hg 06/10/20 25 Blood pressure diastolic 68 mm Hg 025 Heart Rate 97 /min 06/10/2025 Height 73 in 06/10/2025 Weight 281.8 lbs 06/10/2025 BMI 37.17 kg/m2 06/10/2025 Encounters Encounter Location Date Provider Diagnosis [facility] [address] [place], [place] [address] [id number] 06/10/2025 Catarina Wild Urinary frequency R3 5.0 and Nosebleed R04.0 Assessments Encounter Date Diagnosis (ICD Code) Assessment Notes Treatment Notes Treatment Clinical Notes Section Notes 06/10/2025 Urinary frequency (ICD-10 - R35.0) Patient is going to make an appt with urology. Could try some flomax but with family hx of prostate cancer, the blood in the urine, and the urinary symptoms, he should have his prostate checked. 06/10/2025 Nosebleed (ICD-10 - R04.0) Will use saline nasal spray and vaseline in the nose and refrain from blowing the nose forcefully. Plan Of Treatment Treatment Notes Assessment Notes Urinary frequency Patient is going to make an appt with urology. Could try some flomax but with family hx of prostate cancer, the blood in the urine, and the urinary symptoms, he should have his prostate checked. Nosebleed Will use saline nasa l spray and vaseline in the nose and refrain from blowing the nose forcefully. Next Appt Details Follow Up: with urology,via phone to report test results, Reason: Progress Notes * Dario LOREDO RDOB: 4 (70 yo M)Acc No.[id number]:06/10/2025 Progress Notes Patient: Dario RAMIREZ Provider: JAROCHO Aviles :1955 A ge:70 Y S ex:Male Date:06/10/2025 Address:[facility] Susannah Tillman, [place], [id number] Pcp:Pranav Connolly Subjective: * Chief Complaints: * 1 . Nose bleed. * HPI: M osmar Reproductive: 70 year old male presents with c/o frequency P t states he has been going to the restroom more than normal. Pt states he can go 5-6 times in an hour. Pt states he would like to know if there is anything to help relax so he isn't going as frequently. He has been told he has BPH. He has a urologist in [place]. He does have a hx of prostate cancer in his family.. E NT/respiratory: Pt states he has been having frequent nose bleeds. Pt states it has been going on for several days. Pt states today both nostrils was bleeding and it was bright red blood. * ROS: D ERMATOLOGY: no R jose. [...] day , Taking Vitamin D 1.25 MG (03335 UT) Capsule 1 capsule Orally weekly , Taking Montelukast Sodium 10 MG Tablet 1 tablet Orally Once a day , Taking Levocetirizine Dihydrochloride 5 MG Tablet 1 tablet in the evening Orally Once a day , Taking Vitamin B12 1000 MCG Tablet 1 tablet Orally Once a day , Medication List reviewed and reconciled with the patient * Allergies: N .K.D.A. Objective: * Vitals: W t: 281.8, Temp: 97.9, BP: 110/68, HR: 97, Nurse: ranjith, Ht: 73, BMI:37.17. * Examination: G eneral Examination: General Appearance: N AD. H EENT: s clera and conjunctiva clear, PERRLA, TM's normal, translucent, nares with erythema and a small blood clot in the right naris. O ral cavity: n o lesions, mucosa moist and WNL, no erythema. N carina: s upple, no lymphadenopathy. C hest: n ormal shape and expansion. H eart: R SR. L ungs: c lear to auscultation. A bdomen: b owel sounds present, soft and nontender. N eurologic Exam: I ntact, gait normal. S kin: n ormal, no rash. P eripheral pulses: normal (2+) bilaterally. E xtremities: t race leg edema. Assessment: * Assessment: 1. U rinary frequency - R35.0 (Primary) 2 . N osebleed - R04.0 ? Plan: * Treatment: Value Reference Range C ulture, Urine See Below - * S pecimen Source Urine - Void - * Catarina Wild 06/15/2025 02:14:17 PM EST >Please let patient know this shows no growthNora Sommers 06/17/2025 09:08:14 AM EST >pt informed ?LAB: Urinalysis - Inhouse (Collection Date & Time - 06/10/2025)* Value Reference Range C olor/Clarity yellow/clear * L euk neg * N itrite neg * U robili 16 * P rotein neg * p H 5.5 * B lood trace-intact * S p. Gr. 1.020 * K etone neg * B gely neg * G mario 2+ * Nora Sommers 06/10/2025 02 :31:45 PM EST > Provider reviewed results while patient in office. Notes: Patient is going to make an appt with urology. Could try some flomax but with family hx of prostate cancer, the blood in the urine, and the urinary symptoms, he should have his prostate checked. ??2.?Nosebleed? Notes: Will use saline nasal spray and vaseline in the nose and refrain from blowing the nose forcefully.?? * Procedure Codes: G 2211 Complex e/[place], [address] Urinalysis, no micro, G8783 BP SCR PRFRM RCMDD DEFIND SCR INTVL, G8752 MOST RECENT SYSTOLIC BP < 140MM HG, G8754 MOST RECENT DIASTOLIC BP < 90MM HG, 3074F SYST BP LT 130 MM HG, 3078F DIAST BP < 80 MM HG * Follow Up: w [facility] urology,via phone to report test results * Images: Billing Information: * Visit Code: 29915 Office Visit, Est Pt., Level 4. * Procedure Codes: G2211 Complex e/[place]. [address] Urinalysis, no micro. G8783 BP SCR PRFRM RCMDD DEFIND SCR INTVL. G8752 MOST RECENT SYSTOLIC BP < 140MM HG. G8754 MOST RECENT DIASTOLIC BP < 90MM HG. 3074F SYST BP LT 130 MM HG. 3078F DIAST BP < 80 MM HG. * Electronic signature of JAROCHO Saucedo on 06/21/2025 at 09:00 AM EST Sign off status: Pending * Provider: JAROCHO Aviles Date: 1 08/11/2024 Generated for Printi ng/Faxing/eTransmitting on: 08/22/2024 09:00 AM EST History and Physical Notes * HPI (History of Present Illness) Category Sub-Category Detail Notes Category Not es ENT/respiratory Pt states he has been having frequent nose bleeds. Pt states it has been going on for several days. Pt states today both nostrils was bleeding and it was bright red blood Male Reproductive frequency Pt states he h as been going to the restroom more than normal. Pt states he can go 5-6 times in an hour. Pt states he would like to know if there is anything to help relax so he isn't going as frequently. He has been told he has BPH. He has a urologist in [place]. He does have a hx of prostate cancer in his family. Examination Category Sub-Category Detail Notes Category Not es General Examination HEENT: sclera and c onjunctiva clear, PERRLA, TM's normal, translucent, nares with erythema and a small blood clot in the right naris Heart: RSR Lungs: clear to auscultatio n Abdomen: bowel sounds present , soft and nontender Extremities: trace leg edema General Appearance: NAD Skin: normal, no rash Neurologic Exam: Intact, gait normal Neck: supple, no lymphaden opathy Oral cavity: no lesions, mucosa m oist and WNL, no erythema Peripheral pulses: normal (2+) bilatera lly Chest: normal shape and exp ansion
--- NOTE | 2025-06-21 09:00 | CT_ITS ---
FINAL REPORT TECHNIQUE: Axial CT of the abdomen and pelvis, without and with IV contrast. This study was performed with techniques to keep radiation doses as low as reasonably achievable, (ALARA). Individualized dose reduction techniques using automated exposure control or adjustment of mA and/or kV according to the patient''s size were employed. CLINICAL HISTORY: ABDML WALL HERNIA COMPARISON: 08/12/2023 FINDINGS: Abdomen: Lung bases are clear. There is fatty infiltration of the liver. The remaining solid abdominal organs are within normal limits. Precontrast imaging shows mild bilateral nephrolithiasis with stones measuring up to 3 mm. There is a parapelvic right renal cyst. Postcontrast imaging of the kidneys shows no mass or obstruction. No bowel obstruction or fluid collection is seen. There is an umbilical hernia containing fat and a small amount of ascites. Abdominal wall defect measures 18 mm, and with the hernia sac 41 mm. This is similar to the prior study. Pelvis: Pelvic bowel loops are unremarkable. The appendix is not visualized. The urinary bladder and prostate are normal. No fluid collection or adenopathy is seen. IMPRESSION: Stable umbilical hernia containing fat and fluid. Bilateral nephrolithiasis with resolved hydronephrosis seen on the prior exam. Reviewed, Interpreted and Dictated by Jennie Rodrigues MD Transcribed by Jeannette Garay Authenticated and [facility]
--- OUTSIDE RECORDS SUMMARY | 2025-06-21 09:00 | XMS_ITS | Clinical Summary ---
Author Organization [facility] Address [address] [place] [address] Care Team Providers Care Data Management Consultant Name Role Phone Sarmad Simmons MD Primary Care Provider [phone] Allergies Active Allergy Reactions Criticality Noted Date [...] Active Active Problems No known active problems Encounters Date Type Department Care Team Description 06/10/[address] [facility] [address] [place] [address] Rachel Russell, MERCHANDISING REPRESENTATIVE, DNP HCN Clinical Concern/Question from Last 3 Months Social History Tobacco Use Types Packs/Day Years [...] Care Team (Late st Contact Info) Description 08/11/2025 10:50 AM EST Office Visit [place] [facility] [address], [address] [place] [address] Susie Zamora PA [address] [place] [address] Health Maintenance Due Date Last Done Comments [facility]-Hepatitis C Screening 1955 [facility]-Medicare Annual Wellness (AWV) 1955 [facility]-Infant/Child/Adol SDOH Screenings 1955 [facility]- SDOH Screenings 1972 [facility]-Adult SDOH Screenings 1972 [facility]-DTaP,Tdap,and Td Vaccines (1 - Tdap) 1973 [facility]-Pneumococcal Vaccine: 50+ Years (1 of 2 - PCV) 1973 CT Colonography 1999 Colonoscopy 1999 FIT-DNA 1999 FIT 1999 FOBT 1999 Sigmoidoscopy 1999 [facility]-Colorectal Cancer Screening 1999 [facility]-Zoster Vaccines (1 of 2) 2004 [facility]-Depression Screening 05/04/2025 05/04/2024 UIA-QCMKT-61 Vaccine ( season) 2025 04/09/2025, 05/06/2024, 04/19/2023, Additional history exists [facility]-RSV Vaccine: 60+ Years or (1 - 1-dose 75+ series) 2029 [facility]-Hepatitis A Vaccines Aged Out 11/07/2018, 04/02 No longer eligible based on patient's age to complete this topic [facility]-Obesity Intervention Completed 024, 05/04/2024, 02/10/2024, Additional history exists [facility]-Influenza Vaccine Completed 04/09/2025 , 04/20/2024, 04/17/2023, Additional history exists HPV Vaccines (No Doses Required) Completed [facility]-HIB Vaccines Aged Out No longer e ligible based on patient's age to complete this topic [facility]-IPV Vaccines Aged Out No longer e ligible based on patient's age to complete this topic [facility]-Rotavirus Vaccines Aged Out No lo nger eligible based on patient's age to complete this topic Medical Devices Implanted Type Area Camp Attendant Device Identifier Shelf Expiration Date Model / Serial / Lot Stent Ureteral Double Pigtail Pos 6fr 26cm - [id number] Implanted:Qty: 1 on 10/08/2023 by Jimmie Pierce MD at [facility] Left: [id number] 04/15/2025 [id number] / / [id number] Insurance [employer] MEDICARE Care Teams Data Management Consultant Relationship Specialty Start Date End Date Sarmad Simmons MD [address] [place] [address] [facility] - General 11/11/20
--- OUTSIDE RECORDS SUMMARY | 2025-06-21 09:00 | XMS_ITS | Encounter Summary ---
Author Organization [facility] Address [address] [place] [address] Care Team Providers Care Wool Hat Finisher Name Role Phone Sarmad Simmons MD Primary Care Provider [phone] Encounter Details Date Type Department Care Team (Late Contact Info) Description 08/12/2023 Orders Only External Location [address] [place] [address] Sarmad Simmons MD [address] [place] [address] Social History Tobacco Use Types Packs/Day Years [...] Description 08/11/2025 10:50 AM EST Office Visit [facility] [address], [address] [place] [address] Susie Zamora PA [address] [place] [address] documented as of this encounter Procedures Procedure [...] on filedocumented in this encounter Care Teams Wool Hat Finisher Relationship Specialty Start Date End Date Sarmad Simmons MD [address] [place] [address] PCP - General 11/11/20 documented as of this encounter
--- OUTSIDE RECORDS SUMMARY | 2025-06-21 09:00 | XMS_ITS | Encounter Summary ---
Author Organization [facility] Address [address] [place] [id number] Care Team Providers Care Dietary Supervisor Name Role Phone Sarmad Simmons MD Primary Care Provider [phone] Reason for Visit * Reason Onset Date Comments HCN Clinical Concern/Question 06/10/2025 Encounter Details Date Type Department Care Team (Late st Contact Info) Description 06/10/2025 Telephone [place] [facility] [address], [address] [place] [address] Rachel Russell P, STAFF RADIOGRAPHER, DNP [address] [place] [address] HCN Clinical Concern/Question Social History Tobacco Use Types Packs/Day Years Used Date Smoking Tobacco: Never Smokeless Tobacco: Never Alcohol Use Standard Drinks/Week Comments Never 0 (1 standard drink = 0.6 oz pur e alcohol) PHQ-2 Answer Date Recorded Patient Health Questionnaire-2 Score 0 05/04/2024 Sex and Gender Information Value Date Recorded Sex Assigned at Not on file Legal Sex Male 6:12 PM EDT Gender Identity Not on file Sexual Orientation Not on file documented as of this encounter Miscellaneous Notes * Telephone Encounter - [facility] - 06/10/2025 2:57 PM EST Clinical Concern/Question Reason for Call: He is having to urinate a lot. He is asking to be seen. Best contact number: [phone] (home) Optimal time of day to reach caller: ANYTIME Additional comments/information from caller: None Note: Please do not reply to this message. Follow-up communication and further actions as a result of this message need to be communicated with the patient directly, if the patient is not active onMyChart. If the patient is active on MyChart, they will receive notification of the communication/outcome via MyChart. documented in this encounter Plan of Treatment Upcoming Encounters Date Type Department Care Team (Late st Contact Info) Description 08/11/2025 10:50 AM EST Office Visit [place] [facility] [address] [place] [address] Susie Zamora, PA [address] [place] [address] documented as of this encounter Visit Diagnoses Not on filedocumented in this encounter Additional Health Concerns Assessment Noted Time A fall risk assessment has been complete d for the patient 05/04/2024 8:27 AM EST A Body Mass Index follow-up plan has been documented for the patient 05/20/2024 11:07 AM EST documented as of this encounter Care Teams Dietary Supervisor Relationship Specialty Start Date End Date Sarmad Simmons MD [address] [place] [address] PCP - General 11/11/20 documented as of this encounter
--- OUTSIDE RECORDS SUMMARY | 2025-06-21 09:00 | XMS_ITS | Patient Health Record ---
Author Organization [facility] Address [address] [place] [id number] Care Team Providers Care Recordings Librarian Name Role Phone Pranav Connolly Primary Care Provider [phone] Catarina Wild Unavailable [phone] Allergies No Known Allergies Results Component Value Reference Range Notes Urinalysis - Inhouse Reviewed date:06/10/2025 04:51:13 PM Interpretation: Performing Lab: Notes/Report: Color/Clarity yellow/clear Leuk neg Nitrite neg Urobili 16 Protein neg pH 5.5 Blood trace-intact Sp. Gr. 1.020 Ketone neg Bili neg Gluc 2+ P-Culture, Urine Reviewed date:06/17/2025 09:09:50 AM Interpretation:No Growth Performing Lab: Notes/Report: CLIA: [id number] Javan Prater MD, PhD, FCAP, Archeology Professor [address] [place] [address] , [facility] [place] [address] Test performed by [employer] Specimen Source Urine - Void Culture, Urine See Below Final Report : No growth P-TSH reflex to FT4 Reviewed date:04/07/2025 10:01:59 AM Interpretation:Normal Performing Lab: Notes/Report: CLIA: [id number] Jonatan Rand MD, Archeology Professor [address] [place] [address] , [facility] [place] [address] Test performed by [employer] TSH reflex to FT4 1.43 0.43-5.25 mU/L CBC Venipuncture (in house) Reviewed date:04/06/2025 10:13:04 [...] Interpretation:326 Performing Lab: Notes/Report: Test performed by [employer] [address] [place] [address] , [address], [place] [address] Jonatan Rand MD, Archeology Professor CLIA: [id number] Vitamin B12 307 388-4284 pg/mL P-Comprehensive Metabolic Pa elissa (CMP) Reviewed date:04/07/2025 10:01:59 AM Interpretation:cl 110, gluc 123, bili 2.2 Performing Lab: Notes/Report: Test performed by [employer] [address] [place] [address] , [address], [place] [address] Jonatan Rand MD, Archeology Professor CLIA: [id number] Sodium 142 135-145 mmol/L Potassium 4.4 3.5-5.3 [...] 38 Performing Lab: Notes/Report: Test performed by [employer] [facility] [address], [place] [address] Jonatan Rand MD, Archeology Professor NGUYEN: [id number] Lipid Panel Footnote See Below *Based on optimal reference values. Please refer to the DOS for additional information regarding diagnostic lipid reference ranges, patient management based on the recently updated lipid guidelines ([place] College [employer]iology/[place] [employer] Association Task Force on Clinical Practice Guidelines (2018), and pediatric diagnostic lipid reference values (<18 years old). Total Cholesterol 93 <200 mg/dL Triglycerides 101 <150 mg/dL HDL Cholesterol 38 >40 mg/dL Total Cholesterol / HDL Ratio* 2.45 <4.99 Ratio Non-HDL Cholesterol 55 <130 mg/dL LDL Cholesterol (Calculation) 35 <100 mg/dL LDL / HDL Ratio* 0.92 <2.49 Ratio LDL Cholesterol Patient History Test Date: 07/18/2022 LDL Results: 86 Units: mg/dL % Change: - Test Date: 04/06/2025 LDL Results: 35 Units: mg/dL % Change: -59% P-Magnesium Reviewed date:04/07/2025 10:01:59 AM Interpretation:Normal Performing Lab: Notes/Report: Test performed by [employer] [address] [place] [address] , [address], [place] [address] Jonatan Rand MD, Archeology Professor CLIA: [id number] Magnesium 2.0 1.6-2.4 mg/dL P-Vitamin D 25-Hydroxy Reviewed date:04/07/2025 10:01:59 AM Interpretation:15.5 Performing Lab: Notes/Report: Test performed by [facility] [address] , [address], [place] [address] Jonatan Rand MD, Archeology Professor CLIA: [id number] Vitamin D 25-Hydroxy 15.5 30.0-100.0 ng/mL Interpretation of Vitamin D 25 [place]: < 20 ng/mL - Deficiency 20 - 29 ng/mL - Insufficiency 30 - 100 ng/mL - Sufficiency > 100 ng/mL - Super-therapeutic- toxicity may occur above this level. Clinical correlation required. Reason For Referral No Information Medications Medication SIG (Take, Route, Frequency, Duration) Notes Start Date End Date Status Jardiance 10 MG 1 tablet Orally Once a day Active Xarelto 20 MG 1 tablet with food Orally Once a day Active Dorzolamide HCl-Timolol Mal 2-0.5 % 1 drop into affected eye Ophthalmic Twice a day Active Rosuvastatin Calcium 40 MG [...] 90 days Active Vitamin D 1.25 MG (11733 UT) 1 capsule Orally weekly 04/07/2025 Active Problems Problem Type SNOMED Code ICD Code Onset Dates Problem Status W/U Status Risk Notes Problem Mixed hyperlipidemia (554397023) Mixed hyperlipidemia (E78.2) Active confirmed Problem Insomnia (728216319) Other insomnia (G47.09) Active confirmed Problem Atherosclerotic heart disease of [place] coronary artery without angina pectoris (222226284478774) Coronary artery disease involving [place] coronary artery of [place] heart without angina pectoris (I25.10) Active confirmed Problem Adjustment disorder (92563061) Adjustment disorder, unspecified type (F43.20) Active confirmed Vital Signs Heart Rate 97 /min 06/10/2025 Blood pressure diastolic 68 mm Hg 06/10/2025 Height 73 in 06/10/2025 Blood pressure systolic 110 mm Hg 06/10/2025 Weight 281.8 lbs 06/10/2025 BMI 37.17 kg/m2 06/10/2025 Encounters Encounter Location Date Provider Diagnosis [facility] [address] [place], [place] [id number] 04/06/2025 Pranav Burton Coronary artery dise ase involving [place] coronary artery of [place] heart without angina pectoris I25.10 ; Other fatigue R53.83 ; Adjustment disorder, unspecified type F43.20 ; Other insomnia G47.09 ; Mixed hyperlipidemia E78.2 and History of DVT (deep vein thrombosis) Z86.718 [facility] [address] [place], [place] [id number] 06/02/2025 Catarina Crowdy B12 deficiency E53.8 ; Abdominal wall hernia K43.9 and Generalized abdominal pain R10.84 [facility] [address] [place], [place] [id number] 06/10/2025 Catarina Crowdy Urinary frequency R3 5.0 and Nosebleed R04.0 [facility] [address] [facility] [address] [place], [place] [id number] 04/26/2025 Pranav Burton [facility] [address] [facility] [address] [place], [place] [id number] 04/07/2025 Pranav Burton [facility] [address] [place], [place] [id number] 05/24/2025 Pranav Burton Assessments Encounter Date Diagnosis (ICD Code) Assessment Notes Treatment Notes Treatment Clinical Notes Section Notes 04/06/2025 Other fatigue (ICD-10 - R53.83) 06/02/2025 B12 deficiency (ICD-10 - E53.8) Will recheck in 2 months. 06/02/2025 Abdominal wall hernia (ICD-10 - K43.9) 06/10/2025 Urinary frequency (ICD-10 - R35.0) Patient is going to make an appt with urology. Could try some flomax but with family hx of prostate cancer, the blood in the urine, and the urinary symptoms, he should have his prostate checked. 06/10/2025 Nosebleed (ICD-10 - R04.0) Will use saline nasal spray and vaseline in the nose and refrain from blowing the nose forcefully. 04/06/2025 Coronary artery disease involving [place] coronary artery of [place] heart without angina pectoris (ICD-10 - I25.10) 04/06/2025 Adjustment disorder, unspecified type (ICD-10 - F43.20) 06/02/2025 Generalized abdominal pain (ICD-10 - R10.84) Will get a CT. 04/06/2025 Other insomnia (ICD-10 - G47.09) 04/06/2025 Mixed hyperlipidemia (ICD-10 - E78.2) 04/06/2025 History of DVT (deep vein thrombosis) (ICD-10 - Z86.718) Plan Of Treatment Pending Test Test Name Order Date CT Scan : Abd & Pelvis with and without IV contrast only 06/02/2025 Insurance Providers Payer Name Payer Address Payer Phone Subscriber Number Group Number Insured Name Patient Relationship to Insured Coverage Start Date Coverage End Date [employer] (MEDICAR E) [address] [address] [place] [address] [id number] Dario Luo Self - patient is the insured Medical (General) History Medical History History ICD Code kidney stones Hyperlipidemia allergic rhinitis DVT, right leg x2 Atrial Arrhythmia Benign Prostatic Hyperplasia Overactive Bladder Coronary Artery Disease Glaucoma Surgical History Surgery Date(Month/Year) Heart Cath, Stents 09/2024
--- OUTSIDE RECORDS SUMMARY | 2025-06-21 09:00 | XMS_ITS | Encounter Summary ---
Author Organization [facility] Address [address] [id number] Care Team Providers Care Developing Machine Operator Name Role Phone Sarmad Simmons MD Primary Care Provider [phone] Reason for Referral * Consultation (Routine) - Closed Specialty Diagnoses / Procedures Referred By Contthu t Referred To Contact Urology Diagnoses Kidney stone Sarmad Simmons MD [address] [facility] [address] [address] Phone: tel: fax: [facility] [address] [place] [address] Phone: tel: fax: Referral ID Status Reason Start Date Expiration Date V isits Requested Visits Authorized [id number] Closed Specialty Services Required 09/17/2023 03/18/2025 1 1 Encounter Details Date Type Department Care Team (Late st Contact Info) Description 09/17/2023 [facility] [address] [place] [address] [facility]ad Simmons MD [facility] [address] [place] [address] Kidney stone (Primary Dx) Social History Tobacco [...] Description 08/11/2025 10:50 AM EST Office Visit [facility] [address] [place] [address] Ssuie Zamora PA [address] [place] [address] Scheduled Referrals Name Type Priority Associated Diagnoses Order Schedule Ambulatory referral to Urology Outpatient Referral Routine Kidney stone Expected: 09/17/2023, Expires: 03/19/2025 documented as of this encounter Visit Diagnoses Diagnosis Kidney stone- Primary Calculus of kidney documented in this encounter Care Teams Developing Machine Operator Relationship Specialty Start Date End Date Sarmad Simmons MD [address] [place] [address] PCP - General 11/11/20 documented as of this encounter
[2025-06-21 09:38] LABS: Chloride 108 mmol/L (98-107); Potassium 4.2 mmoL/L (3.5-5.1); Sodium 139 mmol/L (136-145)
[2025-06-21 09:41] LABS: Anion Gap 10.2 mEq/L (5-15); Blood Urea Nitrogen 23 mg/dl (9-20); Carbon Dioxide 25 mmol/L (22.0-30.0); Creatinine,Serum 1.00 mg/dl (0.66-1.25); Estimated Glomerular Filt Rate 74 ml/min (>60); GFR (African American) 89 ML/MIN (>60)
[2025-06-21 09:42] LABS: Calcium 10.1 mg/dl (8.4-10.2); Glucose 140 mg/dl (74-100)
[2025-06-21] MEDS: SODIUM CHLORIDE 0.9% 10ML SYR (RAD ONLY) 10 ML IV (09:59)
[2025-06-21] MEDS: IOPAMIDOL-370 (76%);100ML BOTTLE 75 ML IV (10:00)
== END 2025-06-21 23:59 | disposition home or self-care (01) ==
LOC: RAD 08:57
PROVIDERS: Nurse Practitioner; PCP Family Medicine; Visit Provider Physician Assistant
DX: K42.9 Umbilical hernia without obstruction or gangrene (principal); K43.9 Ventral hernia without obstruction or gangrene; N20.0 Calculus of kidney; R94.31 Abnormal electrocardiogram [ECG] [EKG]; Z02.4 Encounter for examination for driving license; R42 Dizziness and giddiness
CPT/HCPCS: 36415; 74178; 80048; Q9967